=== PATIENT | female | born 1960 | race Caucasian/White ===

== ENCOUNTER 2016-12-02 05:49 | Outpatient (CLI) | payer OTHER | END 2016-12-02 05:50 | disposition critical access hospital (66) | DX: R11.2 Nausea with vomiting, unspecified (principal); R10.32 Left lower quadrant pain; R23.1 Pallor; R61 Generalized hyperhidrosis | CPT/HCPCS: A0425; A0427 ==

== ENCOUNTER 2016-12-02 06:08 | Emergency (ER) | payer OTHER ==
[2016-12-02] MEDS ORDERED: SODIUM CHLORIDE 0.9% 1,000 ML IV ONE (07:11)
[2016-12-02] MEDS ORDERED: KETOROLAC 60 MG/2 ML VIAL IVP STA (07:11)
[2016-12-02] MEDS ORDERED: ACETAMINOPHEN 1,000 MG/100 ML 100 ML IV STA (07:11)
[2016-12-02] MEDS ORDERED: ONDANSETRON 4 MG/2 ML VIAL IVP STA ×2 (07:11→09:19)
[2016-12-02] MEDS ORDERED: KETOROLAC 30 MG/ML VIAL ONE (07:21)
[2016-12-02] MEDS ORDERED: ACETAMINOPHEN 1,000 MG/100 ML 100 ML IV ONE (07:21)
[2016-12-02] MEDS ORDERED: ONDANSETRON 4 MG/2 ML VIAL ONE ×2 (07:21→09:27)
[2016-12-02] MEDS ORDERED: FAMOTIDINE 20 MG/50 ML 50 ML IV ONE ×2 (09:19→09:27)
[2016-12-02] MEDS ORDERED: HYDROmorphone 1 MG/ML SYRINGE IVP STA (09:19)
[2016-12-02] MEDS ORDERED: HYDROmorphone 1 MG/ML SYRINGE ONE (09:28)
== END 2016-12-02 11:02 | disposition home or self-care (01) ==
DX: R10.10 Upper abdominal pain, unspecified (principal); R11.2 Nausea with vomiting, unspecified; K80.20 Calculus of gallbladder without cholecystitis without obstruction; K21.9 Gastro-esophageal reflux disease without esophagitis; R73.9 Hyperglycemia, unspecified; R03.0 Elevated blood-pressure reading, without diagnosis of hypertension
CPT/HCPCS: 36415; 74176; 76705; 80053; 83690; 85025; 96361; 96365; 96367; 96375; 96376; 99284; J0131; J1170

== ENCOUNTER 2016-12-02 11:57 | Emergency (ER) | payer OTHER | END 2016-12-02 13:51 | disposition left against medical advice (07) | DX: Z53.21 Procedure and treatment not carried out due to patient leaving prior to being seen by health care provider (principal) ==

== ENCOUNTER 2017-12-07 13:22 | Day surgery (SDC) | payer OTHER ==
[2017-12-07] MEDS ORDERED: LACTATED RINGERS 1,000 ML IV ONE ×2 (14:07→16:15)
[2017-12-07] MEDS ORDERED: GLYCOPYRROLATE 1 MG/5 ML VIAL IVP ONE (16:00)
[2017-12-07] MEDS ORDERED: KETAMINE 500 MG/10 ML VIAL IVP ONE (16:00)
[2017-12-07] MEDS ORDERED: MIDAZOLAM 2 MG/2 ML VIAL IVP ONE (16:00)
[2017-12-07 16:50] VITALS: BP 154/92
--- NOTE | 2017-12-08 14:56 | PROCEDURE REPORT ---
DATE OF SERVICE: 12/07/2017 Physician: Artie Jacobsen MD PROCEDURE PERFORMED: Esophagogastroduodenoscopy with biopsy. ENDOSCOPIST: Artie Jacobsen MD PRIMARY CARE: Leatha Nelson MD INDICATION: Known cirrhosis, need for screening for varices. In addition, some abdominal discomfort, rule out H pylori. ANESTHESIA: MAC. PROCEDURE: After informed consent was obtained, the patient was placed in left lateral decubitus position. The video upper scope was placed to the oropharynx where the patient helped swallow to the esophagus, where the esophagus, stomach, duodenum were carefully examined. On withdrawal, retroflex through the GE junction was performed. The scope was removed and patient tolerated the procedure well. BLOOD LOSS: None. COMPLICATIONS: None. FINDINGS 1. Normal esophagus without any evidence of varices. 2. No gastropathy or portal hypertension. 3. Two antral erosions on raised inflammatory lesions. Biopsies taken to rule out Helicobacter. 4. Normal duodenal bulb and sweep. Patient will continue current medications and follow up with Dr. Hoffman; will be in touch regarding biopsies. cc: MD Dr. Yasmin Landrum TD: 12/07/2017 20:30
== END 2017-12-07 13:23 | disposition home or self-care (01) ==
LOC: SDS 13:22
PROVIDERS: ATTEND Internal Medicine Gastroenterology
PROC: 0DB78ZX Excision of Stomach, Pylorus, Via Natural or Artificial Opening Endoscopic, Diagnostic (ICD-10-PCS; principal; 2017-12-07 15:00)
DX: K25.9 Gastric ulcer, unspecified as acute or chronic, without hemorrhage or perforation (principal); K74.60 Unspecified cirrhosis of liver; R10.9 Unspecified abdominal pain; Z86.19 Personal history of other infectious and parasitic diseases
CPT/HCPCS: 43239; J7120

== ENCOUNTER 2020-11-18 11:24 | Outpatient (CLI) | payer OTHER | END 2020-11-18 23:59 | disposition critical access hospital (66) | LOC: EMS 11:24 | PROVIDERS: ATTEND Emergency Medicine | DX: R10.9 Unspecified abdominal pain (principal); R11.2 Nausea with vomiting, unspecified; M54.6 Pain in thoracic spine | CPT/HCPCS: A0425; A0427 ==

== ENCOUNTER 2020-11-18 11:45 | Observation (INO) | payer OTHER ==
--- NOTE | 2020-11-18 11:51 | ED Physician Documentation ---
PD HPI NVD - Stated complaint Stated Complaint: N/V - History obtained from History obtained from: Patient - History of Present Illness Timing - onset: Last night (overnight about 4 am.) Timing - details: Abrupt onset (nausea with repetitive vomiting, has intermittent cramping mid to upper abd pains. Some soft stool diarrhea couple of times.), Still present Associated symptoms: Abdominal pain (intermittent cramping), Loss of appetite. No: Fever, Chest pain, Hematemesis, Hematochezia, Dysuria Contributing factors: No: Sick contact, Bad food, Recent antibiotics Similar symptoms before: Has not had sx before Recently seen: Not recently seen Review of Systems Constitutional: denies: Fever, Chills Nose: denies: Rhinorrhea / runny nose, Congestion Throat: denies: Sore throat Respiratory: denies: Cough GI: reports: Abdominal Pain (cramping mid to upper.), Nausea, Vomiting, Diarrhea. denies: Abdominal Swelling, Constipation : denies: Dysuria, Discharge Musculoskeletal: denies: Neck pain, Back pain Neurologic: reports: Generalized weakness. denies: Focal weakness, Numbness, Near syncope, Altered mental status, Headache PD PAST MEDICAL HISTORY - Past Medical History Cardiovascular: None Respiratory: None Endocrine/Autoimmune: None GI: GERD, Hepatitis, Other (gallstones from prior studies. 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: None : Kidney stones HEENT: None Psych: Bipolar disorder, Depression, Anxiety Musculoskeletal: None Derm: None - Past Surgical History Past Surgical History: Yes /MANAGING JEWELER: Hysterectomy, section - Present Medications Home Medications: Ambulatory Orders Medication Instructions Recorded Confirmed Estrogens, Conjugated Cream 30 gm VG ONCE 12/07/17 11/18/20 [Premarin Cream] - Allergies Allergies/Adverse Reactions: Allergies Allergy/AdvReac Type Severity Reaction Status Date / Time Sulfa (Sulfonamide Allergy Intermediate Rash Verified 11/18/20 11:50 Antibiotics) - Living Situation Living Arrangement: reports: At home - Social History Does the pt smoke?: No Smoking Status: Never smoker Does the pt drink ETOH?: Yes ETOH Use: Other (she states last alcohol use was a month ago. No recent use. ) Does the pt have substance abuse?: Yes - Immunizations Immunizations are current?: Yes - POLST Patient has POLST: No PD ED PE NORMAL - Vitals Vital signs reviewed: Yes - General General: Alert and oriented X 3, Well developed/nourished, Other (Emesis bag and appears uncomfortable.) - HEENT HEENT: Pharynx benign. No: Moist mucous membranes - Neck Neck: Supple, no meningeal sign, No adenopathy - Cardiac Cardiac: RRR (low heart rate at times with the nausea. ), No murmur - Respiratory Respiratory: Clear bilaterally - Abdomen Abdomen: Normal bowel sounds, Soft, Non distended, No organomegaly, Other (some tenderness without guarding mid to right upper abd without percussion nor rebound tenderness. ) - Female Female : Deferred - Rectal Rectal: Deferred - Back Back: No CVA TTP - Derm Derm: Normal color, Warm and dry - Extremities Extremities: No edema, No calf tenderness / cord - Neuro Neuro: Alert and oriented X 3, No motor deficit, Normal speech Eye Opening: Spontaneous Motor: Obeys Commands Verbal: Oriented GCS Score: 15 Results - Vitals Vitals: Vital Signs - 24 hr 11/18/20 11/18/20 11/18/20 11:50 11:54 13:03 Temperature 36.7 C 36.6 C Heart Rate 42 L 76 65 Respiratory 14 16 14 Rate Blood Pressure 143/80 H 157/82 H 152/75 H O2 Saturation 99 98 99 11/18/20 15:13 Temperature 36.4 C L Heart Rate 78 Respiratory 22 Rate Blood Pressure 159/93 H O2 Saturation 98 Oxygen O2 Source Room air - EKG (time done) 12:20 Rate: Rate (enter#) (61) Rhythm: NSR [place]: Normal Intervals: Normal [place] QRS: Poor R wave progression Ischemia: Normal ST segments. No: ST elevation c/w ischemia, ST depression - Labs Labs: Laboratory Tests 11/18/20 11/18/20 11/18/20 10:45 10:45 13:43 WBC 9.2 RBC 4.29 Hgb 13.9 Hct 41.4 MCV 96.5 MCH 32.4 H MCHC 33.6 RDW 12.7 Plt Count 164 MPV 8.7 Neut # (Auto) 8.4 H Lymph # (Auto) 0.4 L [place] # (Auto) 0.4 Eos # (Auto) 0.0 Baso # (Auto) 0.0 Absolute Nucleated RBC 0.00 Nucleated RBC % 0.0 Sodium 143 Potassium 3.6 Chloride 105 Carbon Dioxide 21 Anion Gap 17.0 H BUN 14 Creatinine 0.6 Estimated GFR (MDRD) 102 Glucose 130 H Calcium 10.1 Magnesium 1.7 Total Bilirubin 0.9 AST 23 ALT 17 Alkaline Phosphatase 71 Troponin I High Sens 2.5 Total Protein 8.0 Albumin 5.1 Globulin 2.9 Albumin/Globulin Ratio 1.8 Lipase 20 L Urine Color Urine Clarity Urine pH Ur Specific [place] Urine Protein Urine Glucose (UA) Urine Ketones Urine Occult Blood Urine Nitrite Urine Bilirubin Urine Urobilinogen Ur Leukocyte Esterase Ur Microscopic Review Urine Culture Comments 11/18/20 15:12 WBC RBC Hgb Hct MCV MCH MCHC RDW Plt Count MPV Neut # (Auto) Lymph # (Auto) [place] # (Auto) Eos # (Auto) Baso # (Auto) Absolute Nucleated RBC Nucleated RBC % Sodium Potassium Chloride Carbon Dioxide Anion Gap BUN Creatinine Estimated GFR (MDRD) Glucose Calcium Magnesium Total Bilirubin AST ALT Alkaline Phosphatase Troponin I High Sens Total Protein Albumin Globulin Albumin/Globulin Ratio Lipase Urine Color YELLOW Urine Clarity CLEAR Urine pH 6.5 Ur Specific [place] 1.025 Urine Protein NEGATIVE Urine Glucose (UA) NEGATIVE Urine Ketones >=80 H Urine Occult Blood NEGATIVE Urine Nitrite NEGATIVE Urine Bilirubin NEGATIVE Urine Urobilinogen 0.2 (NORMAL) Ur Leukocyte Esterase NEGATIVE Ur Microscopic Review NOT INDICATED Urine Culture Comments NOT INDICATED - Rads (name of study) abd U/S Radiology: Prelim report reviewed (gallstones with some in neck. 6 mm stone in duct with some CBD dilatation. No wall thickening nor surrounding fluid.), See rad report, Other (discussed with tech. multiple GB stones without wall thickening. CBD with small stone and some ductal dilitation. ) PD MEDICAL DECISION MAKING - ED course Complexity details: reviewed results (Lipase and LFTs are okay.), re-evaluated patient (Still having intermittent cramping pains upper abd, more to the right. Can get U/S. ), considered differential (She is not having much tenderness in the upper abdomen and intermittent cramping pain so less likely pancreatitis. Consider gastritis or viral enteritis. Gallbladder would be possible as well. Will give IV fluids and medications. ), d/w patient ED course: And is still having intermittent abdominal pain despite several doses of pain medicines. At this point she does not seem comfortable consistently enough for oral medication and discharge. I talked with Dr. Canseco and reviewed the findings of the labs and ultrasound and he states he can admit the patient here since no signs of real biliary obstruction per se with normal labs. He will see the patient in the ER. Departure - Departure Disposition: 66 [facility] DC/Xfer Clinical Impression: RUQ abdominal pain, Intractable abdominal pain, Gallstones Bile duct stone Qualifiers: Cholecystitis presence: without cholecystitis Biliary obstruction: without biliary obstruction Qualified Code(s): K80.50 - Calculus of bile duct without cholangitis or cholecystitis without obstruction Condition: Stable Record reviewed to determine appropriate education?: Yes
[2020-11-18] MEDS ORDERED: SODIUM CHLORIDE 0.9% 1,000 ML IV STA ×2 (12:05→13:32)
[2020-11-18] MEDS ORDERED: ONDANSETRON 4 MG/2 ML VIAL IVP STA (12:05)
[2020-11-18] MEDS ORDERED: MORPHINE 10 MG/ML VIAL IVP STA (12:05)
[2020-11-18 12:39] LABS: BASOPHILS % (AUTO) 0.2 %; HGB - HEMOGLOBIN 13.9 g/dL (12.0-16.0); LYMPHOCYTES # (AUTO) 0.4 10^3/uL (1.5-3.5); MEAN CORPUSCULAR HEMOGLOBIN 32.4 pg (27.0-31.0); MEAN CORPUSCULAR HGB CONC 33.6 g/dL (32.0-36.0); MEAN CORPUSCULAR VOLUME 96.5 fL (81.0-99.0); MEAN PLATELET VOLUME 8.7 fL (7.9-10.8); MONOCYTES # (AUTO) 0.4 10^3/uL (0.0-1.0); MONOCYTES % (AUTO) 4.6 %; NEUTROPHILS # (AUTO) 8.4 10^3/uL (1.5-6.6); NEUTROPHILS % (AUTO) 90.9 %; PLT - PLATELET COUNT 164 10^3/uL (130-450); RED BLOOD COUNT 4.29 10^6/uL (4.20-5.40); RED CELL DISTRIBUTION WIDTH 12.7 % (12.0-15.0); WHITE BLOOD COUNT 9.2 x10^3/uL (4.8-10.8)
[2020-11-18 12:49] LABS: ALBUMIN 5.1 g/dL (3.2-5.5); ALBUMIN/GLOBULIN RATIO 1.8 (1.0-2.2); BILIRUBIN,TOTAL 0.9 mg/dL (0.2-1.0); CALCIUM 10.1 mg/dL (8.5-10.3); CREATININE 0.6 mg/dL (0.4-1.0); MAGNESIUM 1.7 mg/dL (1.7-2.8)
[2020-11-18] MEDS ORDERED: KETOROLAC 15 MG/ML VIAL IVP STA (12:50)
[2020-11-18] MEDS ORDERED: HYDROmorphone 1 MG/ML CARPUJECT IVP STA (12:50)
[2020-11-18] MEDS ORDERED: PROCHLORPERAZINE 10 MG/2 ML VIAL IVP STA (13:32)
--- NOTE | 2020-11-18 14:46 | Ultrasound Report ---
PROCEDURE: Abdomen Limited INDICATIONS: upper abd pain and vomiting TECHNIQUE: Real-time focused scanning was performed of the abdomen, with image documentation. COMPARISON: 12/02/2016 abdominal ultrasound FINDINGS: Nodular hepatic contour with mildly coarsened parenchymal echotexture and increased parenchymal echog enicity. Appropriate clinical setting these findings are consistent with cirrhosis. No hepatic mass i dentified. No intrahepatic biliary ductal dilatation. The common duct measures approximately 9 mm at the rick hepatis. There is at least one gallstone wit hin the common bile duct and multiple gallstones in the gallbladder neck. The gallbladder itself is n ormally distended without wall thickening or pericholecystic fluid. There are multiple shadowing gall stones as well as gallbladder sludge. Sonographic Hogan's sign is reported as positive. Normal right renal size and cortical thickness. There are a few nonobstructing punctate microcalcific ations in the collecting system which may represent small calculi findings of renal medullary calcino sis. Pancreas is within normal limits were partially visualized. IMPRESSION: Dilated common bile duct measuring 9 mm, containing at least one 6 mm gallstone. Numerous additional gallstones within the gallbladder including a few stones in the gallbladder neck. No imaging evidence of acute cholecystitis although the clearing hand does report a positive sonograph ic Hogan's sign. Findings suggestive of cirrhosis or other diffuse hepatocellular process. Reviewed by: J Carlos Rankin MD on 11/18/2020 2:44 PM PST Approved by: J Carlos Rankin MD on 11/18/2020 2:44 PM PST Station ID: [id number]
[2020-11-18 15:26] LABS: BILIRUBIN,URINE NEGATIVE (NEGATIVE); GLUCOSE, URINE (UA) NEGATIVE (NEGATIVE); KETONES,URINE (UA) >=80 mg/dL (NEGATIVE); LEUKOCYTE ESTERASE, URINE NEGATIVE (NEGATIVE); NITRITE,URINE NEGATIVE (NEGATIVE); OCCULT BLOOD,URINE NEGATIVE (NEGATIVE); PH,URINE 6.5 PH (5.0-7.5); PROTEIN,URINE NEGATIVE (NEGATIVE); UROBILINOGEN,URINE 0.2 (NORMAL) E.U./dL (NORMAL)
[2020-11-18 15:27] LABS: CLARITY,URINE CLEAR (CLEAR)
[2020-11-18] MEDS ORDERED: ONDANSETRON ODT 4 MG TABLET TL PRN (15:45)
[2020-11-18] MEDS ORDERED: PROCHLORPERAZINE 10 MG/2 ML VIAL IVP PRN (15:45)
[2020-11-18] MEDS ORDERED: HYDROmorphone PCA 20MG/100ML IV PRN (15:52)
--- NOTE | 2020-11-18 15:56 | HISTORY & PHYSICAL EXAMINATION ---
Chief Complaint - Chief Complaint Chief Complaint: deep epigastric pain and nausea and vomiting History of Present Illness - Admitted From Admitted From:: ed - History Obtained From Exam Limitations: none - History of Present Illness HPI Comment/Other: Abdominal pain and nausea and vomiting all day. She has had similar mild brief episodes in the past. Deep epigastric pain History - Past Medical History Cardiovascular: reports: None Respiratory: reports: None Neuro: reports: None Endocrine/Autoimmune: reports: None GI: reports: GERD, Hepatitis, Other (gallstones from prior studies. 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 : reports: Kidney stones HEENT: reports: None Psych: reports: Bipolar disorder, Depression, Anxiety Musculoskeletal: reports: None Derm: reports: None MRSA Hx?: No - Past Surgical History /VOCATIONAL REHABILITATION SPECIALIST: reports: Hysterectomy, section - Family & Social History Living arrangement: At home - POLST Patient has POLST: No Meds/Allgy - Home Medications Home Medications: Ambulatory Orders Medication Instructions Recorded Confirmed Estrogens, Conjugated Cream 30 gm VG ONCE 12/07/17 11/18/20 [Premarin Cream] - Allergies Allergies/Adverse Reactions: Allergies Allergy/AdvReac Type Severity Reaction Status Date / Time Sulfa (Sulfonamide Allergy Intermediate Rash Verified 11/18/20 11:50 Antibiotics) Review of Systems - Other Findings Other Findings: 10 pt ros as above otherwise unremarkable Exam - Vital Signs Reviewed Vital Signs: Yes Vital Signs: Vital Signs x48h Temp Pulse Resp BP Pulse Ox 11/18/20 15:13 36.4 C L 78 22 159/93 H 98 11/18/20 13:03 36.6 C 65 14 152/75 H 99 11/18/20 11:54 76 16 157/82 H 98 11/18/20 11:50 36.7 C 42 L 14 143/80 H 99 - Physical Exam General Appearance: positive: No acute distress, Alert Eyes Bilateral: positive: Normal inspection, PERRL, EOMI, No scleral icterus ENT: positive: No signs of dehydration Neck: positive: No JVD Respiratory: positive: No respiratory distress, Breath sounds nml Cardiovascular: positive: Regular rate & rhythm Abdomen: positive: No distention, Other (epigastric tenderness present) Neurologic/Psychiatric: positive: Oriented x3 Conclusion/Plan - Problem List (1) Gallstones Conclusion/Plan: She has had numerous small gallstones with little problem until today. Today she has had severe epigastric pain with nausea and vomiting all day. Not improving. Plan treatment cholecystitis with ivf, pain and nausea management and urgent surgery - Lab Results Fish Bones: 11/18/20 10:45 11/18/20 10:45 - Diagnostic Imaging Results Diagnostic Imaging Results: positive: Read independently (numerous small calcified gallstones for years)
[2020-11-18] MEDS: D5.45NS W/20 MEQ KCL 1,000 ML IV SCH (17:09)
[2020-11-18] MEDS: SODIUM CHLORIDE FLUSH 0.9% 10 ML SYRINGE IVP SCH (17:09)
[2020-11-18] MEDS: ONDANSETRON 4 MG/2 ML VIAL IVP PRN (17:56)
[2020-11-18] MEDS: AMPICILLIN/SULBACTAM 3 GM in SODIUM CHLORIDE 0.9% MINIBAG 100 ML IV SCH (18:31)
[2020-11-18] MEDS ORDERED: MORPHINE PCA 50 MG IV PRN (18:38)
[2020-11-18 19:34] LABS: C. PNEUMONIAE- RESP PCR PANEL NOT DETECTED
[2020-11-18] MEDS: FAMOTIDINE 20 MG TABLET PO SCH (21:37)
[2020-11-18] MEDS: ZOLPIDEM 5 MG TABLET PO PRN (21:37)
[2020-11-19] MEDS: AMPICILLIN/SULBACTAM 3 GM in SODIUM CHLORIDE 0.9% MINIBAG 100 ML IV SCH ×4 (00:49→18:10)
[2020-11-19] MEDS: SODIUM CHLORIDE FLUSH 0.9% 10 ML SYRINGE IVP SCH ×3 (00:58→17:27)
[2020-11-19] MEDS: D5.45NS W/20 MEQ KCL 1,000 ML IV SCH ×3 (01:00→18:55)
[2020-11-19] MEDS: SODIUM CHLORIDE FLUSH 0.9% 10 ML SYRINGE IVP PRN (05:35)
[2020-11-19] MEDS: FAMOTIDINE 20 MG TABLET PO SCH ×2 (09:07→20:12)
[2020-11-19] MEDS ORDERED: ACETAMINOPHEN 325 MG TABLET PO PRN (09:38)
[2020-11-19] MEDS: HYDROcod/ACETAM 5/325 MG TABLET PO PRN ×3 (09:54→22:06)
--- NOTE | 2020-11-19 12:34 | PROVIDER PROGRESS NOTE ---
Subjective - Prog Note Date Prog Note Date: 11/19/20 - Subjective Pt reports feeling: Improved (pain is no longer constant; however comes in waves and can be significant. nausea improved) Objective - Vital Signs/Intake & Output Vital Signs: Vital Signs x48h Temp Pulse Resp BP Pulse Ox 11/19/20 08:00 37.2 C 68 16 133/62 H 98 11/19/20 06:01 16 11/19/20 05:59 37.0 C 72 16 147/74 H 96 11/19/20 05:00 55 L 16 137/77 H Intake & Output: Intake & Output 11/16/20 11/17/20 11/18/20 11/19/20 23:59 23:59 23:59 23:59 Intake Total 1577.5 2181.25 Output Total 250 Balance 1327.5 2181.25 - Objective General Appearance: positive: No acute distress, Alert, Mild distress Eyes Bilateral: positive: PERRL, No scleral icterus ENT: positive: No signs of dehydration Respiratory: positive: No respiratory distress Abdomen: positive: No distention, Other (epigastric tenderness present) Neurologic/Psychiatric: positive: Oriented x3 - Lab Results Fish Bones: 11/18/20 10:45 11/18/20 10:45 Other Labs: Lab Results x24hrs 11/18/20 11/18/20 11/18/20 Range/Units 16:51 15:12 13:43 WBC (4.8-10.8) x10^3/uL RBC (4.20-5.40) 10^6/uL Hgb (12.0-16.0) g/dL Hct (37.0-47.0) % MCV (81.0-99.0) fL MCH (27.0-31.0) pg MCHC (32.0-36.0) g/dL RDW (12.0-15.0) % Plt Count (130-450) 10^3/uL MPV (7.9-10.8) fL Neut # (Auto) (1.5-6.6) 10^3/uL Lymph # (Auto) (1.5-3.5) 10^3/uL [place] # (Auto) (0.0-1.0) 10^3/uL Eos # (Auto) (0.0-0.7) 10^3/uL Baso # (Auto) (0.0-0.1) 10^3/uL Absolute Nucleated RBC x10^3/uL Nucleated RBC % /100WBC Sodium (135-145) mmol/L Potassium (3.5-5.0) mmol/L Chloride (101-111) mmol/L Carbon Dioxide (21-32) mmol/L Anion Gap (6-13) BUN (6-20) mg/dL Creatinine (0.4-1.0) mg/dL Estimated GFR (MDRD) (>89) Glucose (70-100) mg/dL Calcium (8.5-10.3) mg/dL Magnesium (1.7-2.8) mg/dL Total Bilirubin (0.2-1.0) mg/dL AST (10-42) IU/L ALT (10-60) IU/L Alkaline Phosphatase (42-121) IU/L Troponin I High Sens 2.5 (2.3-14.8) ng/L Total Protein (6.7-8.2) g/dL Albumin (3.2-5.5) g/dL Globulin (2.1-4.2) g/dL Albumin/Globulin Ratio (1.0-2.2) Lipase (22-51) U/L Urine Color YELLOW Urine Clarity CLEAR (CLEAR) Urine pH 6.5 (5.0-7.5) PH Ur Specific [place] 1.025 (1.002-1.030) Urine Protein NEGATIVE (NEGATIVE) mg/dL Urine Glucose (UA) NEGATIVE (NEGATIVE) mg/dL Urine Ketones >=80 H (NEGATIVE) mg/dL Urine Occult Blood NEGATIVE (NEGATIVE) Urine Nitrite NEGATIVE (NEGATIVE) Urine Bilirubin NEGATIVE (NEGATIVE) Urine Urobilinogen 0.2 (NORMAL) (NORMAL) E.U./dL Ur Leukocyte Esterase NEGATIVE (NEGATIVE) Ur Microscopic Review NOT INDICATED Urine Culture Comments NOT INDICATED Nasal Adenovirus (PCR) NOT DETECTED Nasal B. parapertussis DNA (PCR) NOT DETECTED Nasal Coronavir 229E PCR NOT DETECTED Nasal Coronavir HKU1 PCR NOT DETECTED Nasal Coronavir NL63 PCR NOT DETECTED Nasal Coronavir OC43 PCR NOT DETECTED Nasal Enterovir/Rhinovir PCR NOT DETECTED Nasal Influenza B PCR NOT DETECTED Nasal Influenza A PCR NOT DETECTED Nasal Parainfluen 1 PCR NOT DETECTED Nasal Parainfluen 2 PCR NOT DETECTED Nasal Parainfluen 3 PCR NOT DETECTED Nasal Parainfluen 4 PCR NOT DETECTED Nasal RSV (PCR) NOT DETECTED Nasal B.pertussis DNA PCR NOT DETECTED Nasal C.pneumoniae (PCR) NOT DETECTED Thaddeus Human Metapneumo PCR NOT DETECTED Nasal M.pneumoniae (PCR) NOT DETECTED Nasal SARS-CoV-2 (PCR) NOT DETECTED 11/18/20 11/18/20 Range/Units 10:45 10:45 WBC 9.2 (4.8-10.8) x10^3/uL RBC 4.29 (4.20-5.40) 10^6/uL Hgb 13.9 (12.0-16.0) g/dL Hct 41.4 (37.0-47.0) % MCV 96.5 (81.0-99.0) fL MCH 32.4 H (27.0-31.0) pg MCHC 33.6 (32.0-36.0) g/dL RDW 12.7 (12.0-15.0) % Plt Count 164 (130-450) 10^3/uL MPV 8.7 (7.9-10.8) fL Neut # (Auto) 8.4 H (1.5-6.6) 10^3/uL Lymph # (Auto) 0.4 L (1.5-3.5) 10^3/uL [place] # (Auto) 0.4 (0.0-1.0) 10^3/uL Eos # (Auto) 0.0 (0.0-0.7) 10^3/uL Baso # (Auto) 0.0 (0.0-0.1) 10^3/uL Absolute Nucleated RBC 0.00 x10^3/uL Nucleated RBC % 0.0 /100WBC Sodium 143 (135-145) mmol/L Potassium 3.6 (3.5-5.0) mmol/L Chloride 105 (101-111) mmol/L Carbon Dioxide 21 (21-32) mmol/L Anion Gap 17.0 H (6-13) BUN 14 (6-20) mg/dL Creatinine 0.6 (0.4-1.0) mg/dL Estimated GFR (MDRD) 102 (>89) Glucose 130 H (70-100) mg/dL Calcium 10.1 (8.5-10.3) mg/dL Magnesium 1.7 (1.7-2.8) mg/dL Total Bilirubin 0.9 (0.2-1.0) mg/dL AST 23 (10-42) IU/L ALT 17 (10-60) IU/L Alkaline Phosphatase 71 (42-121) IU/L Troponin I High Sens (2.3-14.8) ng/L Total Protein 8.0 (6.7-8.2) g/dL Albumin 5.1 (3.2-5.5) g/dL Globulin 2.9 (2.1-4.2) g/dL Albumin/Globulin Ratio 1.8 (1.0-2.2) Lipase 20 L (22-51) U/L Urine Color Urine Clarity (CLEAR) Urine pH (5.0-7.5) PH Ur Specific [place] (1.002-1.030) Urine Protein (NEGATIVE) mg/dL Urine Glucose (UA) (NEGATIVE) mg/dL Urine Ketones (NEGATIVE) mg/dL Urine Occult Blood (NEGATIVE) Urine Nitrite (NEGATIVE) Urine Bilirubin (NEGATIVE) Urine Urobilinogen (NORMAL) E.U./dL Ur Leukocyte Esterase (NEGATIVE) Ur Microscopic Review Urine Culture Comments Nasal Adenovirus (PCR) Nasal B. parapertussis DNA (PCR) Nasal Coronavir 229E PCR Nasal Coronavir HKU1 PCR Nasal Coronavir NL63 PCR Nasal Coronavir OC43 PCR Nasal Enterovir/Rhinovir PCR Nasal Influenza B PCR Nasal Influenza A PCR Nasal Parainfluen 1 PCR Nasal Parainfluen 2 PCR Nasal Parainfluen 3 PCR Nasal Parainfluen 4 PCR Nasal RSV (PCR) Nasal B.pertussis DNA PCR Nasal C.pneumoniae (PCR) Thaddeus Human Metapneumo PCR Nasal M.pneumoniae (PCR) Nasal SARS-CoV-2 (PCR) Assessment/Plan - Problem List (2) Cholecystitis Impression: She continues with significant pain and times and chills. continue present care and urgent surgery when operating room time available.
[2020-11-19] MEDS: MORPHINE 2 MG/ML CARPUJECT IVP PRN ×2 (13:24→17:49)
[2020-11-19] MEDS: ONDANSETRON 4 MG/2 ML VIAL IVP PRN (13:59)
--- NOTE | 2020-11-19 16:51 | PHARMACY PROGRESS NOTE ---
- Best Possible Medication History Admit Date and Time: 11/18/20 1545 Processed by: Pharmacy Medication History completed: Yes Patient Interview: Completed Secondary Source(s): Physician records, Pharmacy records, Insurance records (PATIENT INTERVIEWED BY [employer]. PATIENT ABLE TO CONFIRM HOME MEDICATIONS ) As the person ultimately responsible for medication therapy, providers are able to order a medication from an existing home medication list in [facility] via the "Reconcile Routine" prior to Confirmation of that medication by system support administrator. Such practice is discouraged except when the physician, in their clinical judgment, deems that a medical need exists for a medication without regard to previous use.
[2020-11-19] MEDS: ZOLPIDEM 5 MG TABLET PO PRN (22:06)
[2020-11-20] MEDS: SODIUM CHLORIDE FLUSH 0.9% 10 ML SYRINGE IVP SCH ×3 (00:24→18:25)
[2020-11-20] MEDS: AMPICILLIN/SULBACTAM 3 GM in SODIUM CHLORIDE 0.9% MINIBAG 100 ML IV SCH ×4 (00:24→17:45)
[2020-11-20] MEDS: HYDROcod/ACETAM 5/325 MG TABLET PO PRN ×2 (05:23→18:26)
[2020-11-20] MEDS: SODIUM CHLORIDE FLUSH 0.9% 10 ML SYRINGE IVP PRN (05:29)
[2020-11-20] MEDS: D5.45NS W/20 MEQ KCL 1,000 ML IV SCH (08:58)
[2020-11-20] MEDS: MORPHINE 2 MG/ML CARPUJECT IVP PRN ×2 (09:06→17:44)
[2020-11-20] MEDS: ONDANSETRON 4 MG/2 ML VIAL IVP PRN ×2 (09:07→22:13)
[2020-11-20] MEDS: FAMOTIDINE 20 MG TABLET PO SCH ×2 (09:07→22:53)
--- NOTE | 2020-11-20 13:27 | PROVIDER PROGRESS NOTE ---
Subjective - Prog Note Date Prog Note Date: 11/20/20 - Subjective Pt reports feeling: Improved (however still uncomfortable) Objective - Vital Signs/Intake & Output Reviewed Vital Signs: Yes Vital Signs: Vital Signs x48h Temp Pulse Resp BP Pulse Ox 11/20/20 11:48 37.4 C 98 162/75 H 11/20/20 08:18 37.2 C 56 L 16 152/95 H 98 Intake & Output: Intake & Output 11/17/20 11/18/20 11/19/20 11/20/20 23:59 23:59 23:59 23:59 Intake Total 1577.5 4111.25 1300.0 Output Total 250 Balance 1327.5 4111.25 1300.0 - Objective General Appearance: positive: No acute distress, Alert Eyes Bilateral: positive: Normal inspection ENT: positive: No signs of dehydration Respiratory: positive: No respiratory distress Abdomen: positive: No distention Neurologic/Psychiatric: positive: Oriented x3 - Lab Results Fish Bones: 11/18/20 10:45 11/18/20 10:45 Assessment/Plan - Problem List (2) Cholecystitis Impression: plan prasanth cristina. keyanna held and consent obtained
[2020-11-20] MEDS ORDERED: BUPIVACAINE 0.25% PF 30 ML VIAL SUBQ ONE (13:34)
[2020-11-20] MEDS ORDERED: ONDANSETRON 4 MG/2 ML VIAL IVP PRN ×2 (13:47→15:52)
[2020-11-20] MEDS ORDERED: NALOXONE 0.4 MG/ML VIAL IVP PRN (13:47)
[2020-11-20] MEDS ORDERED: HYDROmorphone 0.5 MG/0.5 ML SYRINGE IVP PRN (13:47)
[2020-11-20] MEDS ORDERED: ATROPINE ABBOJECT 1 MG/10 ML SYRINGE IVP PRN (13:47)
[2020-11-20] MEDS ORDERED: METOCLOPRAMIDE 10 MG/2 ML VIAL IVP PRN (13:47)
[2020-11-20] MEDS ORDERED: MORPHINE 2 MG/ML CARPUJECT IVP PRN (13:47)
[2020-11-20] MEDS ORDERED: ePHEDrine 50 MG/ML VIAL IVP PRN (13:47)
--- NOTE | 2020-11-20 13:47 | ANESTHESIA ---
Pre-Anesthesia VS, & Labs - Diagnosis cholecytitis - Procedure Laparoscopic cholecystectomy Vital Signs: Temp Pulse Resp BP Pulse Ox 37.4 C 98 16 162/75 H 98 11/20/20 11:48 11/20/20 11:48 11/20/20 08:18 11/20/20 11:48 11/20/20 08:18 Height: 5 ft 1 in Weight (kg): 58.5 kg Body Mass Index: 24.3 BMI Classification: Healthy weight - NPO >8 hours - Is Patient ?: No - Lab Results Current Lab Results: Laboratory Tests 11/18/20 13:43: Troponin I High Sens 2.5 11/18/20 10:45: Sodium 143, Potassium 3.6, Chloride 105, Carbon Dioxide 21, Anion Gap 17.0 H, BUN 14, Creatinine 0.6, Estimated GFR (MDRD) 102, Glucose 130 H, Calcium 10.1, Magnesium 1.7, Total Bilirubin 0.9, AST 23, ALT 17, Alkaline Phosphatase 71, Total Protein 8.0, Albumin 5.1, Globulin 2.9, Albumin/Globulin Ratio 1.8, Lipase 20 L 11/18/20 10:45: WBC 9.2, RBC 4.29, Hgb 13.9, Hct 41.4, MCV 96.5, MCH 32.4 H, MCHC 33.6, RDW 12.7, Plt Count 164, MPV 8.7, Neut # (Auto) 8.4 H, Lymph # (Auto) 0.4 L, [place] # (Auto) 0.4, Eos # (Auto) 0.0, Baso # (Auto) 0.0, Absolute Nucleated RBC 0.00, Nucleated RBC % 0.0 Lab results reviewed: Yes Fish Bones: 11/18/20 10:45 11/18/20 10:45 Home Medications and Allergies Active Medications Acetaminophen (Acetaminophen 325 Mg Tablet) 650 mg PO Q4HR PRN PRN Reason: Pain or Fever > 38C (100.4F) Hydrocodone Bitart/Acetaminophen (Hydrocod/Acetam 5/325 Mg Tablet) 1 tab PO Q4HR PRN PRN Reason: Pain 5 to 7 Last Admin: 11/20/20 05:23 Dose: 1 tab Documented by: Famotidine (Famotidine 20 Mg Tablet) 20 mg PO BID JERONIMO Last Admin: 11/20/20 09:07 Dose: 20 mg Documented by: Potassium Chloride/Dextrose/Sod Cl (D5.45ns W/20 Meq Kcl) 1,000 mls @ 125 mls/hr IV .Q8H [facility] Last Admin: 11/20/20 08:58 Dose: 125 mls/hr Documented by: Ampicillin Sodium/Sulbactam (Sodium 3 gm/ Sodium Chloride) 100 mls @ 200 mls/hr IV Q6HR [facility] Last Infusion: 11/20/20 12:10 Dose: Infused Documented by: Morphine Sulfate (Morphine 2 Mg/Ml Carpuject) 1 - 2 mg IVP Q4HR PRN PRN Reason: PAIN Last Admin: 11/20/20 09:06 Dose: 2 mg Documented by: Ondansetron HCl (Ondansetron Odt 4 Mg Tablet) 4 mg TL Q6HR PRN PRN Reason: Nausea / Vomiting Last Admin: 11/19/20 06:05 Dose: 4 mg Documented by: Ondansetron HCl (Ondansetron 4 Mg/2 Ml Vial) 4 mg IVP Q6HR PRN PRN Reason: Nausea / Vomiting Last Admin: 11/20/20 09:07 Dose: 4 mg Documented by: Prochlorperazine Edisylate (Prochlorperazine 10 Mg/2 Ml Vial) 10 mg IVP Q6HR PRN PRN Reason: Nausea / Vomiting Last Admin: 11/18/20 21:44 Dose: 10 mg Documented by: Sodium Chloride (Sodium Chloride Flush 0.9% 10 Ml Syringe) 10 ml IVP PRN PRN PRN Reason: NEEDED PER PROVIDER ORDERS Last Admin: 11/20/20 05:29 Dose: 10 ml Documented by: Sodium Chloride (Sodium Chloride Flush 0.9% 10 Ml Syringe) 10 ml IVP 0100,0900,1700 [facility] Last Admin: 11/20/20 09:07 Dose: 10 ml Documented by: Zolpidem Tartrate (Zolpidem 5 Mg Tablet) 5 mg PO QPM PRN PRN Reason: Insomnia Last Admin: 11/19/20 22:06 Dose: 5 mg Documented by: Estrogens, Conjugated Cream [Premarin Cream] 30 gm VG PRN PRN 12/07/17 Allergies/Adverse Reactions: Allergies Allergy/AdvReac Type Severity Reaction Status Date / Time Sulfa (Sulfonamide Allergy Intermediate Rash Verified 11/19/20 14:01 Antibiotics) Anes History & Medical History - Anesthetic History Anesthesia Complications: reports: No previous complications Family history of Anesthesia Complications: Denies Family history of Malignant Hyperthermia: Denies - Medical History Cardiovascular: reports: None Pulmonary: reports: None Gastrointestinal: reports: GERD, Hepatitis, Other Urinary: reports: Kidney stones Neuro: reports: None Musculoskeletal: reports: None Endocrine/Autoimmune: reports: None Blood Disorders: reports: None Skin: reports: None Smoking Status: Current every day smoker Psychosocial: reports: Cannabis History of Cancer?: No - Surgical History Gynecologic: Hysterectomy, section Exam General: Alert, Oriented x3, Cooperative Dental: WNL Mouth Openin Fingerbreadth Neck Mobility: Normal Mallampati classification: I Thyromental Distance: 4-6 cm Respiratory: Lungs clear, Normal breath sounds, No respiratory distress Cardiovascular: Regular rate Neurological: Normal speech Mental/Cognitive Status: Alert/Oriented X3, Normal for patient Cognitive Status: Within normal limits Plan Anesthesia Type: General Consent for Procedure(s) Verified and Reviewed: Yes Code Status: Attempt Resuscitation ASA classification: 2-Mild systemic disease Is this case an emergency?: No
[2020-11-20] MEDS ORDERED: LACTATED RINGERS 1,000 ML IV SCH (14:00)
[2020-11-20] MEDS ORDERED: LACTATED RINGERS 1,000 ML IV ONE ×2 (15:47→16:18)
[2020-11-20] MEDS: fentaNYL 100 MCG/2 ML VIAL IVP PRN ×2 (15:51→16:05)
[2020-11-20] MEDS ORDERED: HYDROcod/ACETAM 5/325 MG TABLET PO PRN (15:52)
--- NOTE | 2020-11-20 15:52 | OPERATIVE REPORT ---
Operative Report - General Admit Date: 11/18/20 Procedure Date: 11/20/20 Planned Procedure: lap cristina Pre-Op Diagnosis: cholecystitis Procedure Performed: lap cristina Post Op Diagnosis: cholecystitis - Procedure Note Primary Surgeon: aric camara Anesthesia Technique: General ET tube, Local Pathology: gb Estimated Blood Loss (mL): 5 Drain/Tube Type: Other (none) Findings: as above. mild cirrhosis Complications: none
[2020-11-20] MEDS: HYDROmorphone 0.5 MG/0.5 ML SYRINGE IVP PRN ×4 (16:09→22:13)
--- NOTE | 2020-11-20 20:00 | OPERATIVE REPORT ---
DATE OF SERVICE: 11/20/2020 Physician: Gareth Canseco MD PREOPERATIVE DIAGNOSIS: Cholecystitis. POSTOPERATIVE DIAGNOSIS: Cholecystitis. PROCEDURE PERFORMED: Laparoscopic cholecystectomy. SURGEON: Gareth Canseco MD PARK RECREATION MANAGER: None. ANESTHESIA 1. General endotracheal anesthesia. 2. Local anesthesia with Marcaine. COMPLICATIONS: None. SPECIMENS: Gallbladder. ESTIMATED BLOOD LOSS: 5-10 mL DRAINS: None. FINDINGS: Acute cholecystitis with a distended gallbladder and edema. Mild cirrhosis. INDICATIONS FOR PROCEDURE: The patient is a fairly healthy 60-year-old with very significant epigast darnell right upper quadrant pain, as well as nausea and vomiting over the last 2-3 days. She has lincoln us small gallstones. She has no signs or symptoms of choledocholithiasis. She presents for cholecys tectomy. Risks discussed, alternatives discussed. All questions answered and consent obtained. DESCRIPTION OF PROCEDURE: The patient was properly identified and brought to the operating room and placed in a supine position. She voided prior to surgery. General endotracheal anesthesia was induc ed. She was prepped and draped in a sterile fashion. She had been on antibiotics. Local anesthetic was given to incision areas. An infraumbilical incision was made. Dissection proceeded down to the fascia. The fascia was incised and a Veress needle placement attempted. The Veress needle would no t pop through the peritoneum easily. The peritoneum therefore was sharply opened and blunt trocar pl aced directly under vision. CO2 was insufflated to a pressure of 15. There was no evidence of injur y from Veress needle or trocar placement. Under direct vision, two 5 mm trocars were placed in the r ight upper quadrant and an 11 mm trocar was placed in the epigastrium. She had a large gallbladder. It was retracted anterior. Lateral attachments were partially taken down further mobilizing the gal lbladder away from the common hepatic duct, which was easily evident without dissection. The infundi bulum and Tristin's pouch area was released from its peritoneal type attachments and retracted right lateral and caudad. A large bare cystic plate area or window was developed with minimal use of caut lavelle. The cystic duct and cystic artery were clearly well defined from both a right lateral and left lateral visual standpoint. The cystic duct and the cystic artery were clipped at the gallbladder and additionally 2-3 times proximally and sharply divided. The gallbladder was mobilized off from the b ed of the liver without spillage of bile or stone material. Hemostasis was assured. Clips were secu red. The scant amount of blood was aspirated. The trocars were removed under direct vision and CO2 evacuated. Fascia in the epigastrium as well as in the infraumbilical site was closed with running 0 Vicryl suture. Skin was closed with buried interrupted or running 4-0 Monocryl subcuticular suture. Dressings were applied. She tolerated the procedure very well. TD: 11/20/2020 19:46
[2020-11-21] MEDS: SODIUM CHLORIDE FLUSH 0.9% 10 ML SYRINGE IVP SCH (01:09)
[2020-11-21] MEDS: AMPICILLIN/SULBACTAM 3 GM in SODIUM CHLORIDE 0.9% MINIBAG 100 ML IV SCH ×2 (01:09→06:41)
[2020-11-21] MEDS: HYDROcod/ACETAM 5/325 MG TABLET PO PRN ×2 (01:22→06:39)
[2020-11-21] MEDS: D5.45NS W/20 MEQ KCL 1,000 ML IV SCH (02:38)
[2020-11-21] MEDS: SODIUM CHLORIDE FLUSH 0.9% 10 ML SYRINGE IVP PRN (06:41)
[2020-11-21 07:50] VITALS: BP 158/88
--- NOTE | 2020-11-21 07:53 | PROVIDER PROGRESS NOTE ---
Subjective - Prog Note Date Prog Note Date: 11/21/20 - Subjective Pt reports feeling: Improved (feeling much better today) Objective - Vital Signs/Intake & Output Reviewed Vital Signs: Yes Vital Signs: Vital Signs x48h Temp Pulse Resp BP Pulse Ox 11/21/20 00:00 37.1 C 51 L 18 148/80 H 99 Intake & Output: Intake & Output 11/18/20 11/19/20 11/20/20 11/21/20 23:59 23:59 23:59 23:59 Intake Total 1577.5 4111.25 3800.0 806.25 Output Total 250 Balance 1327.5 4111.25 3800.0 806.25 - Objective General Appearance: positive: No acute distress, Alert Respiratory: positive: No respiratory distress Abdomen: positive: Non-tender, No distention Neurologic/Psychiatric: positive: Oriented x3 - Lab Results Fish Bones: 11/18/20 10:45 11/18/20 10:45 Assessment/Plan - Problem List (2) Cholecystitis Impression: Doing well. D/C home
[2020-11-21] MEDS: FAMOTIDINE 20 MG TABLET PO SCH (09:02)
--- NOTE | 2020-11-21 11:44 | DISCHARGE SUMMARY ---
"Discharge Summary Admit Date: 11/18/20 Discharge Date: 11/21/20 Discharging Provider: aric camara Code Status: Attempt Resuscitation Condition at Discharge: Good - DIAGNOSES Admission Diagnoses: cholecystitis Discharge Diagnoses with Status of Each Condition: good condition after cholecystectomy - HPI History of Present Illness: acute abdominal pain and cholecystitis - CONSULTS | PROCEDURES Procedures: lap cholecystectomy 11/20/2020 - HOSPITAL COURSE Hospital Course: as above - ALLERGIES Allergies/Adverse Reactions: Allergies Allergy/AdvReac Type Severity Reaction Status Date / Time Sulfa (Sulfonamide Allergy Intermediate Rash Verified 11/19/20 14:01 Antibiotics) - MEDICATIONS Home Medications: Ambulatory Orders Medication Instructions Recorded Confirmed Estrogens, Conjugated Cream 30 gm VG PRN PRN 12/07/17 11/19/20 [Premarin Cream] HYDROcod/ACETAM 5/325 [[place] 5/325] 1 each PO Q6H PRN #30 tab 11/20/20 Ondansetron Odt [Zofran Odt] 4 mg PO Q6H PRN #15 tab 11/20/20 - PHYSICAL EXAM AT DISCHARGE General Appearance: positive: Alert Eyes Bilateral: positive: Normal inspection, PERRL, No scleral icterus Respiratory: positive: No respiratory distress Abdomen: positive: No distention Neurologic/Psychiatric: positive: Oriented x3 - LABS Result Diagrams: 11/18/20 10:45 11/18/20 10:45 - FOLLOW UP Follow Up: aric camara md [phone]"
== END 2020-11-21 11:44 | disposition home or self-care (01) ==
LOC: EDBD → EDUNIT# → ED 11:45 → MS2 15:45 → OBS 11-19 20:27
PROVIDERS: ADMIT Surgery; ATTEND Surgery
PROC: 0FT44ZZ Resection of Gallbladder, Percutaneous Endoscopic Approach (ICD-10-PCS; principal; 2020-11-20 13:30)
DX: K80.00 Calculus of gallbladder with acute cholecystitis without obstruction (principal); K74.60 Unspecified cirrhosis of liver; K21.9 Gastro-esophageal reflux disease without esophagitis; F31.9 Bipolar disorder, unspecified; Z20.822 Contact with and (suspected) exposure to COVID-19; F17.200 Nicotine dependence, unspecified, uncomplicated; Z72.89 Other problems related to lifestyle; Z86.19 Personal history of other infectious and parasitic diseases; Z87.442 Personal history of urinary calculi
CPT/HCPCS: 0202U; 36415; 47562; 76705; 80053; 81003; 83690; 83735; 84484; 85025; 93005; 96365; 96366; 96367; 96368; 96375; 96376; 99284; 99285; A9270; G0378; J1170; J7120; Q0162; 81001; 87086

== ENCOUNTER 2021-02-01 08:34 | Emergency (ER) | payer OTHER ==
--- OUTSIDE RECORDS SUMMARY | 2021-02-01 08:37 | EXTERNAL MEDICAL SUMMARY RPT | Continuity of Care Document ---
:1960 Demographics Phone Unavailable Preferred Language Unknown Marital Status Unknown Jewish Affiliation Unknown Race Unknown Ethnic Group Unknown Author Organization [facility] Address [address] [id number] Phone Social History date description facility [phone]
--- OUTSIDE RECORDS SUMMARY | 2021-02-01 08:57 | EXTERNAL MEDICAL SUMMARY RPT | Continuity of Care Document ---
:1960 Demographics Phone Unavailable Preferred Language Unknown Marital Status Unknown Hindu Affiliation Unknown Race Unknown Ethnic Group Unknown Author Organization [facility] Address [address] [phone] Phone Social History date description facility [phone]
[2021-02-01 09:14] LABS: BILIRUBIN,URINE NEGATIVE (NEGATIVE); GLUCOSE, URINE (UA) NEGATIVE (NEGATIVE); KETONES,URINE (UA) 40 mg/dL (NEGATIVE); LEUKOCYTE ESTERASE, URINE NEGATIVE (NEGATIVE); NITRITE,URINE NEGATIVE (NEGATIVE); OCCULT BLOOD,URINE TRACE-INTA (NEGATIVE); PH,URINE 5.5 PH (5.0-7.5); PROTEIN,URINE 30 mg/dL (NEGATIVE); UROBILINOGEN,URINE 0.2 (NORMAL) E.U./dL (NORMAL)
[2021-02-01 09:15] LABS: CLARITY,URINE CLEAR (CLEAR)
[2021-02-01] MEDS ORDERED: ONDANSETRON 4 MG/2 ML VIAL IVP STA (09:28)
[2021-02-01] MEDS ORDERED: FOLIC ACID INJ 1 MG, THIAMINE INJ 100 MG, MAGNESIUM SULFATE 2 GM, MULTIVITAMIN 10 ML in... IV STA ×5 (09:28)
[2021-02-01 09:30] LABS: BACTERIA,URINE None Seen /HPF (None Seen); RBC,URINE 0-5 /HPF (0-5); SQUAMOUS EPITHELIAL CELL,UR MOD Squamous (<= Few); WBC,URINE 0-3 /HPF (0-5)
--- NOTE | 2021-02-01 09:30 | ED Physician Documentation ---
PD HPI NVD - Stated complaint Stated Complaint: VOMITING - Chief complaint Chief Complaint: Abd Pain - History obtained from History obtained from: Patient - History of Present Illness Timing - onset: Last night Timing - duration: Hours Timing - details: Gradual onset, Still present Associated symptoms: Abdominal pain, Loss of appetite Contributing factors: Alcohol use Improved by: Laying still, Vomiting Worsened by: Eating Similar symptoms before: Diagnosis (gastroenteritis) Recently seen: Not recently seen - Additonal information Additional information: Previously well 61-year-old female has been sober for some time and she had her birthday and her had a surprise republican for her she drank a bottle of wine. She has been vomiting and has some abdominal pain and she has not been able to keep anything down feels very dehydrated.Has diarrhea as well. Review of Systems Constitutional: reports: Fatigue. denies: Fever Eyes: denies: Decreased vision Ears: denies: Ear pain Nose: denies: Rhinorrhea / runny nose, Congestion Throat: denies: Sore throat Cardiac: denies: Chest pain / pressure, Palpitations Respiratory: denies: Dyspnea, Wheezing GI: reports: Abdominal Pain, Nausea, Vomiting, Diarrhea : denies: Dysuria, Frequency Skin: denies: Rash Musculoskeletal: denies: Neck pain, Back pain, Extremity pain Neurologic: denies: Generalized weakness, Focal weakness, Numbness PD PAST MEDICAL HISTORY - Past Medical History Cardiovascular: None Respiratory: None Neuro: None Endocrine/Autoimmune: None GI: GERD, Hepatitis, Other 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 : Kidney stones HEENT: None Psych: Bipolar disorder, Depression, Anxiety Musculoskeletal: None Derm: None - Past Surgical History Past Surgical History: Yes General: 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 /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 FIELD TECHNICIAN: Hysterectomy, section - Present Medications Home Medications: Ambulatory Orders Medication Instructions Recorded Confirmed Estrogens, Conjugated Cream 30 gm VG PRN PRN 12/07/17 02/01/21 [Premarin Cream] Mirtazapine [Remeron] 1 tab PO DAILY 02/01/21 02/01/21 Ondansetron Odt [Zofran] 4 mg TL Q6H PRN #10 tablet 02/01/21 - Allergies Allergies/Adverse Reactions: Allergies Allergy/AdvReac Type Severity Reaction Status Date / Time Sulfa (Sulfonamide Allergy Intermediate Rash Verified 02/01/21 08:43 Antibiotics) - Social History Does the pt smoke?: No Smoking Status: Never smoker Does the pt drink ETOH?: Yes Does the pt have substance abuse?: Yes - Immunizations Immunizations are current?: Yes - POLST Patient has POLST: No PD ED PE NORMAL - Vitals Vital signs reviewed: Yes (Hypertensive) - General General: Alert and oriented X 3, No acute distress, Well developed/nourished - HEENT HEENT: Atraumatic, PERRL, EOMI - Neck Neck: Supple, no meningeal sign, No bony TTP - Cardiac Cardiac: RRR, No murmur - Respiratory Respiratory: No respiratory distress, Clear bilaterally - Abdomen Abdomen: Normal bowel sounds, Soft, Non tender, Non distended, No organomegaly - Back Back: No CVA TTP, No spinal TTP - Derm Derm: Normal color, Warm and dry, No rash - Extremities Extremities: No deformity, No edema - Neuro Neuro: Alert and oriented X 3, rail gang supervisor 2-12 intact, No motor deficit, No sensory deficit, Normal speech Eye Opening: Spontaneous Motor: Obeys Commands Verbal: Oriented GCS Score: 15 - Psych Psych: Normal mood, Normal affect Results - Vitals Vitals: Vital Signs - 24 hr 02/01/21 02/01/21 02/01/21 08:43 09:31 09:39 Temperature 36.5 C Heart Rate 77 61 65 Respiratory 19 19 18 Rate Blood Pressure 142/97 H 147/82 H 147/82 H O2 Saturation 99 100 97 02/01/21 02/01/21 10:28 12:23 Temperature Heart Rate 85 99 Respiratory 14 21 Rate Blood Pressure 132/76 H 128/72 O2 Saturation 97 99 Oxygen O2 Source Room air - Labs Labs: Laboratory Tests 02/01/21 02/01/21 02/01/21 08:50 08:50 08:50 WBC 8.7 RBC 4.61 Hgb 14.9 Hct 44.3 MCV 96.1 MCH 32.3 H MCHC 33.6 RDW 13.2 Plt Count 198 MPV 8.6 Neut # (Auto) 7.1 H Lymph # (Auto) 1.0 L [place] # (Auto) 0.4 Eos # (Auto) 0.1 Baso # (Auto) 0.1 Absolute Nucleated RBC 0.00 Nucleated RBC % 0.0 Sodium 145 Potassium 3.5 Chloride 106 Carbon Dioxide 22 Anion Gap 17.0 H BUN 15 Creatinine 0.6 Estimated GFR (MDRD) 102 Glucose 79 Calcium 9.6 Total Bilirubin 0.8 AST 28 ALT 18 Alkaline Phosphatase 97 Total Protein 8.9 H Albumin 5.5 Globulin 3.4 Albumin/Globulin Ratio 1.6 Lipase 20 L Urine Color Urine Clarity Urine pH Ur Specific [place] Urine Protein Urine Glucose (UA) Urine Ketones Urine Occult Blood Urine Nitrite Urine Bilirubin Urine Urobilinogen Ur Leukocyte Esterase Urine RBC Urine WBC Ur Squamous Epith Cells Urine Bacteria Ur Microscopic Review Urine Culture Comments Ethyl Alcohol 111.0 02/01/21 09:00 WBC RBC Hgb Hct MCV MCH MCHC RDW Plt Count MPV Neut # (Auto) Lymph # (Auto) [place] # (Auto) Eos # (Auto) Baso # (Auto) Absolute Nucleated RBC Nucleated RBC % Sodium Potassium Chloride Carbon Dioxide Anion Gap BUN Creatinine Estimated GFR (MDRD) Glucose Calcium Total Bilirubin AST ALT Alkaline Phosphatase Total Protein Albumin Globulin Albumin/Globulin Ratio Lipase Urine Color YELLOW Urine Clarity CLEAR Urine pH 5.5 Ur Specific [place] >=1.030 H Urine Protein 30 H Urine Glucose (UA) NEGATIVE Urine Ketones 40 H Urine Occult Blood TRACE-INTA Urine Nitrite NEGATIVE Urine Bilirubin NEGATIVE Urine Urobilinogen 0.2 (NORMAL) Ur Leukocyte Esterase NEGATIVE Urine RBC 0-5 Urine WBC 0-3 Ur Squamous Epith Cells MOD Squamous H Urine Bacteria None Seen Ur Microscopic Review INDICATED Urine Culture Comments NOT INDICATED Ethyl Alcohol PD MEDICAL DECISION MAKING - ED course Complexity details: considered differential, d/w patient ED course: 61 year-old female presents to the emergency department with vomiting, diarrhea and dehydration after drinking alcohol. She is administered intravenous banana bag and Zofran. She feels much improved a second bag of saline is hung and the patient is administered dexamethasone 10 mg intravenously. Departure - Departure Disposition: 01 Home, Self Care Clinical Impression: Dehydration Instructions: ED Dehydration Follow-Up: ROSA HONG MD [Primary Care Provider] - Prescriptions: Ondansetron Odt [Zofran] 4 mg TL Q6H PRN #10 tablet PRN Reason: Nausea / Vomiting Discharge Date/Time: 02/01/21 12:31
[2021-02-01 09:38] LABS: BASOPHILS # (AUTO) 0.1 10^3/uL (0.0-0.1); BASOPHILS % (AUTO) 0.9 %; EOSINOPHILS # (AUTO) 0.1 10^3/uL (0.0-0.7); EOSINOPHILS % (AUTO) 0.7 %; HCT - HEMATOCRIT 44.3 % (37.0-47.0); HGB - HEMOGLOBIN 14.9 g/dL (12.0-16.0); LYMPHOCYTES % (AUTO) 11.3 %; MEAN CORPUSCULAR HEMOGLOBIN 32.3 pg (27.0-31.0); MEAN CORPUSCULAR HGB CONC 33.6 g/dL (32.0-36.0); MEAN CORPUSCULAR VOLUME 96.1 fL (81.0-99.0); MEAN PLATELET VOLUME 8.6 fL (7.9-10.8); MONOCYTES # (AUTO) 0.4 10^3/uL (0.0-1.0); MONOCYTES % (AUTO) 5.1 %; NEUTROPHILS # (AUTO) 7.1 10^3/uL (1.5-6.6); NEUTROPHILS % (AUTO) 81.8 %; PLT - PLATELET COUNT 198 10^3/uL (130-450); RED BLOOD COUNT 4.61 10^6/uL (4.20-5.40); RED CELL DISTRIBUTION WIDTH 13.2 % (12.0-15.0); WHITE BLOOD COUNT 8.7 x10^3/uL (4.8-10.8)
[2021-02-01 09:52] LABS: ALBUMIN 5.5 g/dL (3.2-5.5); ALBUMIN/GLOBULIN RATIO 1.6 (1.0-2.2); BILIRUBIN,TOTAL 0.8 mg/dL (0.2-1.0); CALCIUM 9.6 mg/dL (8.5-10.3); CREATININE 0.6 mg/dL (0.4-1.0); POTASSIUM 3.5 mmol/L (3.5-5.0); TOTAL PROTEIN 8.9 g/dL (6.7-8.2)
[2021-02-01] MEDS ORDERED: SODIUM CHLORIDE 0.9% 1,000 ML IV STA (11:13)
[2021-02-01] MEDS ORDERED: DEXAMETHASONE 10 MG/ML VIAL IVP STA (11:13)
[2021-02-01 12:24] VITALS: BP 128/72
== END 2021-02-01 12:31 | disposition home or self-care (01) ==
LOC: ED 08:34
DX: E86.0 Dehydration (principal)
CPT/HCPCS: 36415; 80053; 80320; 81001; 83690; 85025; 96361; 96365; 96375; 99284; J3411; 81003; 87086

== ENCOUNTER 2021-04-11 20:19 | Outpatient (CLI) | payer OTHER | END 2021-04-11 20:20 | disposition critical access hospital (66) | LOC: EMS 20:19 | DX: R10.10 Upper abdominal pain, unspecified (principal) | CPT/HCPCS: A0425; A0427 ==

== ENCOUNTER 2021-04-11 20:38 | Emergency (ER) | payer OTHER ==
--- NOTE | 2021-04-11 20:58 | ED Physician Documentation ---
PD HPI ABD PAIN - Stated complaint Stated Complaint: RUQ PAIN - Chief complaint Chief Complaint: Abd Pain - History obtained from History obtained from: Patient - History of Present Illness Timing - onset: How many hours ago (2), Today Timing - duration: Hours (2) Timing - details: Abrupt onset, Still present Quality: Cramping, Aching, Pain Location: RUQ Radiation: Right flank Improved by: No: Vomiting Worsened by: Moving, Palpation. No: Breathing Associated symptoms: Nausea, Vomiting. No: Fever, Diarrhea Similar symptoms before: Diagnosis (similar to gallbladder problems) Recently seen: Surgery (gallbladder surgery in past few months.) Review of Systems Constitutional: denies: Fever, Chills Nose: denies: Rhinorrhea / runny nose, Congestion Throat: denies: Sore throat Respiratory: denies: Cough GI: reports: Abdominal Pain, Constipation. 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 EQUIPMENT CUSTODIAN: Hysterectomy, section - Present Medications Home Medications: Ambulatory Orders Medication Instructions Recorded Confirmed Estrogens, Conjugated Cream 30 gm VG PRN PRN 12/07/17 04/11/21 [Premarin Cream] Dicyclomine [Bentyl] 10 mg PO QID PRN #15 cap 04/11/21 Ondansetron Odt [Zofran] 4 mg TL Q6H PRN #20 tablet 04/11/21 - Allergies Allergies/Adverse Reactions: Allergies Allergy/AdvReac Type Severity Reaction Status Date / Time Sulfa (Sulfonamide Allergy Intermediate Rash Verified 02/01/21 08:43 Antibiotics) - Social History Does the pt smoke?: No Smoking Status: Never smoker Does the pt drink ETOH?: Yes Does the pt have substance abuse?: Yes - Immunizations Immunizations are current?: Yes - POLST Patient has POLST: No PD ED PE NORMAL - Vitals Vital signs reviewed: Yes - General General: Alert and oriented X 3, Well developed/nourished, Other (appears in significant pain) - Neck Neck: Supple, no meningeal sign, No adenopathy - Cardiac Cardiac: RRR, No murmur - Respiratory Respiratory: Clear bilaterally - Abdomen Abdomen: Soft, No organomegaly, Other (very tener RUQ and epigastric with guarding and percussion tender locally. ) - Female Female : Deferred - Rectal Rectal: Deferred - Back Back: No CVA TTP - Derm Derm: Normal color, Warm and dry - Neuro Neuro: Alert and oriented X 3, No motor deficit, Normal speech Results - Vitals Vitals: Vital Signs - 24 hr 04/11/21 04/11/21 04/11/21 20:46 21:20 21:30 Temperature 36.9 C Heart Rate 87 57 L 57 L Respiratory 18 12 14 Rate Blood Pressure 150/83 H 152/97 H 147/74 H O2 Saturation 98 98 98 04/11/21 04/11/21 04/11/21 22:00 22:30 23:00 Temperature 36.8 C 36.9 C 36.7 C Heart Rate 75 56 L 61 Respiratory 12 12 14 Rate Blood Pressure 125/55 L 145/96 H 138/73 H O2 Saturation 96 96 98 04/11/21 04/12/21 23:30 00:00 Temperature 36.7 C 36.9 C Heart Rate 60 74 Respiratory 14 16 Rate Blood Pressure 155/85 H 150/85 H O2 Saturation 95 98 Oxygen O2 Source Room air - Labs Labs: Laboratory Tests 04/11/21 04/11/21 04/11/21 21:12 21:12 21:12 WBC 5.4 RBC 4.39 Hgb 14.1 Hct 40.9 MCV 93.2 MCH 32.1 H MCHC 34.5 RDW 13.0 Plt Count 155 MPV 8.7 Neut # (Auto) 3.9 Lymph # (Auto) 0.9 L [place] # (Auto) 0.5 Eos # (Auto) 0.1 Baso # (Auto) 0.0 Absolute Nucleated RBC 0.00 Nucleated RBC % 0.0 Sodium 137 Potassium 2.9 L Chloride 104 Carbon Dioxide 19 L Anion Gap 14.0 H BUN 25 H Creatinine 0.7 Estimated GFR (MDRD) 85 L Glucose 167 H Calcium 9.3 Total Bilirubin 2.4 H AST 88 H ALT 30 Alkaline Phosphatase 90 Troponin I High Sens 2.4 Total Protein 7.7 Albumin 4.7 Globulin 3.0 Albumin/Globulin Ratio 1.6 Lipase 23 Ethyl Alcohol < 5.0 - Rads (name of study) RUQ abd U/S Radiology: Prelim report reviewed (slight dilated CBD c/w surgery. No acute process. ), See rad report PD MEDICAL DECISION MAKING - ED course Complexity details: reviewed results (improved with pain meds and antiemetic. With the bili bump, presume possible CBD sludge/temproary blockage but seems patent now. ), considered differential, d/w patient Departure - Departure Disposition: 01 Home, Self Care Clinical Impression: Upper abdominal pain Condition: Stable Record reviewed to determine appropriate education?: Yes Instructions: ED Abdominal Pain Unkn Cause Follow-Up: ROSA HONG MD [Primary Care Provider] - Prescriptions: Dicyclomine [Bentyl] 10 mg PO QID PRN #15 cap PRN Reason: Abdominal Pain Ondansetron Odt [Zofran] 4 mg TL Q6H PRN #20 tablet PRN Reason: Nausea / Vomiting Comments: Your ultrasound appeared normal at this time. I think your pain episode was likely from sludging of the common bile duct which caused a slight bump in your liver enzymes on your blood tests. No signs of pancreatitis. No signs of persistent bile duct blockage at this time. I would anticipate improvement in the next day or 2. Recheck with your primary care this coming week for reevaluation and repeating blood tests for your liver function tests. Frequent fluids. Use Tylenol if needed for pains. Ondansetron if needed for nausea. Dicyclomine if needed for cramps and pains. We did dispense you for oxycodone pain tablets to use every 4-6 hours if needed. This should last to the next day or so. Discharge Date/Time: 04/12/21 00:37
[2021-04-11] MEDS ORDERED: ONDANSETRON 4 MG/2 ML VIAL IVP STA ×2 (21:04→23:46)
[2021-04-11] MEDS ORDERED: SODIUM CHLORIDE 0.9% 1,000 ML IV STA (21:04)
[2021-04-11] MEDS ORDERED: HYDROmorphone 1 MG/ML CARPUJECT IVP STA (21:04)
[2021-04-11] MEDS ORDERED: KETOROLAC 30 MG/ML VIAL IVP STA (21:04)
[2021-04-11 21:23] LABS: BASOPHILS % (AUTO) 0.2 %; EOSINOPHILS # (AUTO) 0.1 10^3/uL (0.0-0.7); EOSINOPHILS % (AUTO) 0.9 %; HCT - HEMATOCRIT 40.9 % (37.0-47.0); HGB - HEMOGLOBIN 14.1 g/dL (12.0-16.0); LYMPHOCYTES # (AUTO) 0.9 10^3/uL (1.5-3.5); LYMPHOCYTES % (AUTO) 16.4 %; MEAN CORPUSCULAR HEMOGLOBIN 32.1 pg (27.0-31.0); MEAN CORPUSCULAR HGB CONC 34.5 g/dL (32.0-36.0); MEAN CORPUSCULAR VOLUME 93.2 fL (81.0-99.0); MEAN PLATELET VOLUME 8.7 fL (7.9-10.8); MONOCYTES # (AUTO) 0.5 10^3/uL (0.0-1.0); MONOCYTES % (AUTO) 9.9 %; NEUTROPHILS # (AUTO) 3.9 10^3/uL (1.5-6.6); NEUTROPHILS % (AUTO) 72.2 %; PLT - PLATELET COUNT 155 10^3/uL (130-450); RED BLOOD COUNT 4.39 10^6/uL (4.20-5.40); WHITE BLOOD COUNT 5.4 x10^3/uL (4.8-10.8)
[2021-04-11 21:46] LABS: ALBUMIN 4.7 g/dL (3.2-5.5); ALBUMIN/GLOBULIN RATIO 1.6 (1.0-2.2); ALKALINE PHOSPHATASE 90 IU/L (42-121); ALT ALANINE AMINOTRANSFERASE 30 IU/L (10-60); AST ASPARTATE AMINOTRANSFERASE 88 IU/L (10-42); BILIRUBIN,TOTAL 2.4 mg/dL (0.2-1.0); BUN - BLOOD UREA NITROGEN 25 mg/dL (6-20); CALCIUM 9.3 mg/dL (8.5-10.3); CARBON DIOXIDE - CO2 19 mmol/L (21-32); CHLORIDE 104 mmol/L (101-111); CREATININE 0.7 mg/dL (0.4-1.0); ETOH - ETHANOL < 5.0 mg/dL; GFR - MDRD 85 (>89); GLUCOSE 167 mg/dL (70-100); LIPASE 23 U/L (22-51); POTASSIUM 2.9 mmol/L (3.5-5.0); SODIUM 137 mmol/L (135-145); TOTAL PROTEIN 7.7 g/dL (6.7-8.2)
--- NOTE | 2021-04-11 21:59 | XRAY Report ---
PROCEDURE: Chest 1 View X-Ray INDICATIONS: Chest pain TECHNIQUE: One view of the chest was acquired. COMPARISON: None FINDINGS: Surgical changes and devices: None. Lungs and pleura: No pleural effusions or pneumothorax. Chronic interstitial changes are present. Mediastinum: Mediastinal contours appear normal. Heart size is enlarged. Bones and chest wall: No suspicious bony lesions. Overlying soft tissues appear unremarkable. IMPRESSION: Chronic interstitial changes. No acute pulmonary process. Reviewed by: Marie Hays MD on 04/11/2021 9:58 PM PDT Approved by: Marie Hays MD on 04/11/2021 9:58 PM PDT Station ID: [id number]
[2021-04-11] MEDS ORDERED: DROPERIDOL 5 MG/2 ML VIAL IVP STA (22:40)
[2021-04-11] MEDS ORDERED: ONDANSETRON ODT 4 MG Prepack 2 TL PRN (23:46)
[2021-04-11] MEDS ORDERED: oxyCODONE/ACET 5/325 Prepack 4 PO STA (23:46)
[2021-04-12 00:15] VITALS: BP 150/85
--- NOTE | 2021-04-12 09:09 | Ultrasound Report ---
PROCEDURE: Abdomen Limited INDICATIONS: upper abd pain today; s/p CCY TECHNIQUE: Real-time focused scanning was performed of the abdomen, with image documentation. COMPARISON: 11/18/2020 FINDINGS: Interval cholecystectomy. Common duct was previously 9 mm, and contains a gallstone. Curre ntly, the common duct measures 12.5 mm. No stones are identified. The pancreatic duct has developed d ilatation, now measuring 5.1 mm. The visualized pancreatic parenchyma is unremarkable. Suggestion of dilated intrahepatic ducts. IMPRESSION: 1. Interval cholecystectomy. 2. Common duct and pancreatic duct are now dilated. Although no stone identified, cannot exclude dist al common duct stone. Comment: Consider MRCP. A preliminary report with the above findings was provided at the time of the study by [facility]. Above discussed with Dr. Calzada at the time of dictation on 04/12/2021 at 0807 hours, [facility] time Reviewed by: Demarcus Gutierrez MD on 04/12/2021 8:08 AM JOAN Approved by: Demarucs Gutierrez MD on 04/12/2021 8:08 AM JOAN Station ID: [id number]
--- NOTE | 2021-04-12 09:11 | ED Physician Documentation ---
ED Addendum - Addendum Addendum: 04/12/21 09:10 Received a telephone call from the radiologist on an over read this morning. He is concerned about the possibility of a common duct stone as he was not able to see the pancreatic duct. I called the patient this morning she is feeling improved and she is familiar with the common duct stone and she will get her chemistries remeasured this week with her primary care doctor.
== END 2021-04-12 00:37 | disposition home or self-care (01) ==
LOC: EDUNIT# → EDSEX → ED 20:38
DX: R10.11 Right upper quadrant pain (principal)
CPT/HCPCS: 36415; 71045; 76705; 80053; 80320; 83690; 84484; 85025; 93005; 96374; 96375; 96376; 99284; 99285; J1170

== ENCOUNTER 2021-05-03 01:44 | Outpatient (CLI) | payer OTHER | END 2021-05-03 01:45 | disposition critical access hospital (66) | LOC: EMS 01:44 | DX: R11.10 Vomiting, unspecified (principal); R10.9 Unspecified abdominal pain | CPT/HCPCS: A0425; A0427 ==

== ENCOUNTER 2021-05-03 02:03 | Emergency (ER) | payer OTHER ==
[2021-05-03] MEDS ORDERED: SODIUM CHLORIDE 0.9% 1,000 ML IV STA (02:08)
[2021-05-03] MEDS ORDERED: HALOPERIDOL 5 MG/ML VIAL IVP ONE (02:08)
[2021-05-03] MEDS ORDERED: diphenhydrAMINE INJ 50 MG/ML VIAL IVP STA (02:09)
--- NOTE | 2021-05-03 02:12 | ED Physician Documentation ---
PD HPI NVD - Stated complaint Stated Complaint: N/V - History obtained from History obtained from: Patient, EMS - History of Present Illness Timing - onset: Enter time (0800), Today Timing - duration: Hours Timing - details: Gradual onset, Still present Associated symptoms: Abdominal pain, Other (uncontrolled vomiting) Contributing factors: Other (canabis use) Improved by: Vomiting Worsened by: Position, Palpation Similar symptoms before: Diagnosis (vomiting) Recently seen: Emergency Dept - Additonal information Additional information: 61-year-old female has had a recurrence of vomiting this evening and this has been uncontrolled and she has some epigastric pain associated with this. She has had these symptoms previously and they have been very difficult to control. She does use cannabis on a regular basis. She has had her gallbladder out in November of this year. Since that time she has had episodic vomiting and has been evaluated and treated in the emergency department. 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: None : Kidney stones HEENT: None Psych: Bipolar disorder, Depression, Anxiety Musculoskeletal: None Derm: None - Past Surgical History Past Surgical History: Yes General: 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 /HEALTH FACILITIES SURVEYOR: Hysterectomy, section - Present Medications Home Medications: Ambulatory Orders Medication Instructions Recorded Confirmed Estrogens, Conjugated Cream 30 gm VG PRN PRN 12/07/17 04/11/21 [Premarin Cream] Dicyclomine [Bentyl] 10 mg PO QID PRN #15 cap 04/11/21 Ondansetron Odt [Zofran] 4 mg TL Q6H PRN #20 tablet 04/11/21 Ondansetron Odt [Zofran] 4 mg TL Q6H PRN #10 tablet 05/03/21 - Allergies Allergies/Adverse Reactions: Allergies Allergy/AdvReac Type Severity Reaction Status Date / Time Sulfa (Sulfonamide Allergy Intermediate Rash Verified 05/03/21 02:53 Antibiotics) - Social History Does the pt smoke?: No Smoking Status: Never smoker Does the pt drink ETOH?: Yes Does the pt have substance abuse?: Yes - Immunizations Immunizations are current?: Yes - POLST Patient has POLST: No PD ED PE NORMAL - Vitals Vital signs reviewed: Yes (Hypertensive) - General General: Alert and oriented X 3, Well developed/nourished - HEENT HEENT: Atraumatic, PERRL, EOMI - Neck Neck: Supple, no meningeal sign, No bony TTP - Cardiac Cardiac: RRR, No murmur - Respiratory Respiratory: No respiratory distress, Clear bilaterally - Abdomen Abdomen: Normal bowel sounds, Soft, Non distended, No organomegaly, Other (Mild generalized tenderness without focal guarding or rebound tenderness.) - Back Back: No CVA TTP, No spinal TTP - Derm Derm: Normal color, Warm and dry, No rash - Extremities Extremities: No deformity, No edema - Neuro Neuro: Alert and oriented X 3, rubber chemist 2-12 intact, No motor deficit, No sensory deficit, Normal speech Eye Opening: Spontaneous Motor: Obeys Commands Verbal: Oriented GCS Score: 15 - Psych Psych: Normal mood, Normal affect Results - Vitals Vitals: Vital Signs - 24 hr 05/03/21 05/03/21 05/03/21 02:10 02:41 02:56 Temperature 35.9 C L 36.6 C Heart Rate 70 64 95 Respiratory 20 17 16 Rate Blood Pressure 139/103 H 139/103 H 132/70 H O2 Saturation 100 95 96 05/03/21 05/03/21 05/03/21 03:52 04:00 04:36 Temperature 36.9 C Heart Rate 89 75 76 Respiratory 16 18 16 Rate Blood Pressure 137/106 H 145/116 H 127/70 O2 Saturation 96 98 95 05/03/21 05:50 Temperature 36.2 C L Heart Rate 75 Respiratory 16 Rate Blood Pressure 127/77 O2 Saturation 95 Oxygen O2 Source Room air - Labs Labs: Laboratory Tests 05/03/21 05/03/21 05/03/21 02:33 02:33 03:58 WBC 8.9 RBC 4.17 L Hgb 13.4 Hct 39.7 MCV 95.2 MCH 32.1 H MCHC 33.8 RDW 12.9 Plt Count 170 MPV 8.5 Neut # (Auto) 7.5 H Lymph # (Auto) 0.9 L Mcmullen # (Auto) 0.4 Eos # (Auto) 0.0 Baso # (Auto) 0.0 Absolute Nucleated RBC 0.00 Nucleated RBC % 0.0 Sodium 145 Potassium 3.4 L Chloride 110 Carbon Dioxide 18 L Anion Gap 17.0 H BUN 18 Creatinine 0.6 Estimated GFR (MDRD) 102 Glucose 144 H Calcium 9.0 Total Bilirubin 0.9 AST 24 ALT 20 Alkaline Phosphatase 82 Total Protein 7.4 Albumin 4.5 Globulin 2.9 Albumin/Globulin Ratio 1.6 Lipase 21 L Urine Color YELLOW Urine Clarity CLEAR Urine pH 5.5 Ur Specific [place] >=1.030 H Urine Protein NEGATIVE Urine Glucose (UA) NEGATIVE Urine Ketones 40 H Urine Occult Blood NEGATIVE Urine Nitrite NEGATIVE Urine Bilirubin NEGATIVE Urine Urobilinogen 0.2 (NORMAL) Ur Leukocyte Esterase NEGATIVE Ur Microscopic Review NOT INDICATED Urine Culture Comments NOT INDICATED Urine Opiates Screen NEGATIVE Ur Oxycodone Screen NEGATIVE Urine Methadone Screen NEGATIVE Ur Propoxyphene Screen NEGATIVE Ur Barbiturates Screen NEGATIVE Ur Tricyclics Screen NEGATIVE Ur Phencyclidine Scrn NEGATIVE Ur Amphetamine Screen NEGATIVE U Methamphetamines Scrn NEGATIVE U Benzodiazepines Scrn NEGATIVE Urine Cocaine Screen NEGATIVE U Cannabinoids Screen POSITIVE H PD MEDICAL DECISION MAKING - ED course Complexity details: reviewed old records, reviewed results, re-evaluated patient, considered differential, d/w patient ED course: 61-year-old female with recurrent abdominal pain and vomiting is a cannabis user and she is not been diagnosed previously with cannabis hyperemesis but this seems like it might fit the picture of this patient's specific problem. Today she is administered Haldol and Benadryl for nausea control as well as a liter of saline and she has some improvement and then as some worsening she is administered some droperidol which does not seem to help that much. She subsequently is administered Zofran and again this has some relief.The patient presented to the emergency department in [facility] with nausea and vomiting. Departure - Departure Disposition: 01 Home, Self Care Clinical Impression: Cyclical vomiting Condition: Stable Instructions: ED Nausea Vomiting Follow-Up: ROSA HONG MD [Primary Care Provider] - Prescriptions: Ondansetron Odt [Zofran] 4 mg TL Q6H PRN #10 tablet PRN Reason: Nausea / Vomiting Comments: Today it appears you have had another cycle of vomiting which is difficult to control. This can be related to something called cannabis hyperemesis. The recommendation is to reduce your use of cannabis.
[2021-05-03 02:48] LABS: BASOPHILS % (AUTO) 0.2 %; HCT - HEMATOCRIT 39.7 % (37.0-47.0); HGB - HEMOGLOBIN 13.4 g/dL (12.0-16.0); LYMPHOCYTES # (AUTO) 0.9 10^3/uL (1.5-3.5); LYMPHOCYTES % (AUTO) 10.2 %; MEAN CORPUSCULAR HEMOGLOBIN 32.1 pg (27.0-31.0); MEAN CORPUSCULAR HGB CONC 33.8 g/dL (32.0-36.0); MEAN CORPUSCULAR VOLUME 95.2 fL (81.0-99.0); MEAN PLATELET VOLUME 8.5 fL (7.9-10.8); MONOCYTES # (AUTO) 0.4 10^3/uL (0.0-1.0); MONOCYTES % (AUTO) 4.8 %; NEUTROPHILS # (AUTO) 7.5 10^3/uL (1.5-6.6); NEUTROPHILS % (AUTO) 84.2 %; PLT - PLATELET COUNT 170 10^3/uL (130-450); RED BLOOD COUNT 4.17 10^6/uL (4.20-5.40); RED CELL DISTRIBUTION WIDTH 12.9 % (12.0-15.0); WHITE BLOOD COUNT 8.9 x10^3/uL (4.8-10.8)
[2021-05-03 03:03] LABS: ALBUMIN 4.5 g/dL (3.2-5.5); ALBUMIN/GLOBULIN RATIO 1.6 (1.0-2.2); BILIRUBIN,TOTAL 0.9 mg/dL (0.2-1.0); CREATININE 0.6 mg/dL (0.4-1.0); POTASSIUM 3.4 mmol/L (3.5-5.0); TOTAL PROTEIN 7.4 g/dL (6.7-8.2)
[2021-05-03] MEDS ORDERED: DROPERIDOL 5 MG/2 ML VIAL IVP STA (03:11)
[2021-05-03] MEDS ORDERED: POTASSIUM CHLOR 10 MEQ/100 ML 10 MEQ/100 ML BAG IV ONE (03:29)
[2021-05-03 04:02] LABS: MUDS CUTOFF CONCENTRATIONS CUTOFF CONC BELOW:
[2021-05-03 04:06] LABS: BILIRUBIN,URINE NEGATIVE (NEGATIVE); GLUCOSE, URINE (UA) NEGATIVE (NEGATIVE); KETONES,URINE (UA) 40 mg/dL (NEGATIVE); LEUKOCYTE ESTERASE, URINE NEGATIVE (NEGATIVE); NITRITE,URINE NEGATIVE (NEGATIVE); OCCULT BLOOD,URINE NEGATIVE (NEGATIVE); PH,URINE 5.5 PH (5.0-7.5); PROTEIN,URINE NEGATIVE (NEGATIVE); UROBILINOGEN,URINE 0.2 (NORMAL) E.U./dL (NORMAL)
[2021-05-03 04:09] LABS: CLARITY,URINE CLEAR (CLEAR)
[2021-05-03] MEDS ORDERED: ONDANSETRON 4 MG/2 ML VIAL IVP STA (04:09)
[2021-05-03 04:16] LABS: AMPHETAMINE SCREEN,URINE NEGATIVE (NEGATIVE); BARBITURATE SCREEN,UR NEGATIVE (NEGATIVE); BENZODIAZEPINES SCREEN, URINE NEGATIVE (NEGATIVE); COCAINE SCREEN URINE NEGATIVE (NEGATIVE); METHADONE SCREEN, URINE NEGATIVE (NEGATIVE); METHAMPHETAMINES SCREEN, URINE NEGATIVE (NEGATIVE); OPIATE SCREEN, URINE NEGATIVE (NEGATIVE); OXYCODONE SCREEN, URINE NEGATIVE (NEGATIVE); PROPOXYPHENE SCREEN, URINE NEGATIVE (NEGATIVE); THC CANNABINOID SCREEN, URINE POSITIVE (NEGATIVE); TRICYCLIC ANTIDEPRESSANT,URINE NEGATIVE (NEGATIVE)
[2021-05-03 06:14] VITALS: BP 141/66
== END 2021-05-03 06:14 | disposition home or self-care (01) ==
LOC: EDUNIT# → SUPCPDRO 02:03 → ED 02:03
DX: R11.15 Cyclical vomiting syndrome unrelated to migraine (principal)
CPT/HCPCS: 36415; 80053; 80306; 81003; 83690; 85025; 96365; 96375; 99283; 99284; J1200; 81001; 87086

== ENCOUNTER 2021-06-24 05:23 | Emergency (ER) | payer OTHER ==
[2021-06-24] MEDS ORDERED: SODIUM CHLORIDE 0.9% 1,000 ML IV STA (06:00)
[2021-06-24] MEDS ORDERED: ONDANSETRON 4 MG/2 ML VIAL IVP STA (06:00)
[2021-06-24] MEDS ORDERED: HYDROmorphone 1 MG/ML CARPUJECT IVP STA ×2 (06:00→06:49)
[2021-06-24 06:08] LABS: BASOPHILS % (AUTO) 0.4 %; EOSINOPHILS # (AUTO) 0.1 10^3/uL (0.0-0.7); EOSINOPHILS % (AUTO) 1.1 %; HCT - HEMATOCRIT 42.9 % (37.0-47.0); HGB - HEMOGLOBIN 14.5 g/dL (12.0-16.0); LYMPHOCYTES # (AUTO) 0.3 10^3/uL (1.5-3.5); MEAN CORPUSCULAR HEMOGLOBIN 31.9 pg (27.0-31.0); MEAN CORPUSCULAR HGB CONC 33.8 g/dL (32.0-36.0); MEAN CORPUSCULAR VOLUME 94.5 fL (81.0-99.0); MEAN PLATELET VOLUME 8.8 fL (7.9-10.8); MONOCYTES # (AUTO) 0.4 10^3/uL (0.0-1.0); MONOCYTES % (AUTO) 7.7 %; NEUTROPHILS # (AUTO) 4.5 10^3/uL (1.5-6.6); NEUTROPHILS % (AUTO) 84.6 %; PLT - PLATELET COUNT 161 10^3/uL (130-450); RED BLOOD COUNT 4.54 10^6/uL (4.20-5.40); RED CELL DISTRIBUTION WIDTH 12.9 % (12.0-15.0); WHITE BLOOD COUNT 5.3 x10^3/uL (4.8-10.8)
[2021-06-24 06:16] LABS: ALBUMIN 4.5 g/dL (3.2-5.5); ALBUMIN/GLOBULIN RATIO 1.4 (1.0-2.2); BILIRUBIN,TOTAL 1.4 mg/dL (0.2-1.0); CALCIUM 9.4 mg/dL (8.5-10.3); CREATININE 0.7 mg/dL (0.4-1.0); POTASSIUM 3.3 mmol/L (3.5-5.0); TOTAL PROTEIN 7.7 g/dL (6.7-8.2)
[2021-06-24] MEDS ORDERED: IOPAMIDOL-300 100 ML VIAL ONE (06:18)
[2021-06-24] MEDS ORDERED: IOPAMIDOL-300 100 ML VIAL IVP ONE (06:44)
[2021-06-24] MEDS ORDERED: KETOROLAC 15 MG/ML VIAL IVP STA (06:49)
[2021-06-24] MEDS ORDERED: DROPERIDOL 5 MG/2 ML VIAL IVP STA (06:49)
--- NOTE | 2021-06-24 07:43 | ED Physician Documentation ---
PD HPI ABD PAIN - Stated complaint Stated Complaint: ABD PX, VOMITING - Chief complaint Chief Complaint: Abd Pain - History obtained from History obtained from: Patient - History of Present Illness Timing - onset: How many hours ago (few) Timing - details: Abrupt onset, Still present Quality: Cramping, Aching, Pain Location: LUQ, Periumbilical Radiation: Left flank. No: Chest, Lower back Improved by: Vomiting (judt briefly) Worsened by: Eating Associated symptoms: Nausea, Vomiting. No: Fever, Diarrhea, Constipation, Dysuria Similar symptoms before: Diagnosis (She has had episodes of upper abdominal pain and vomiting related to sludging of the common bile duct and elevated liver enzymes. This pain is different location.) Recently seen: Not recently seen Review of Systems Constitutional: denies: Fever, Chills Nose: denies: Rhinorrhea / runny nose, Congestion Throat: denies: Sore throat Respiratory: denies: Cough GI: reports: Abdominal Pain (the past few hours abruptly), Nausea, Vomiting : denies: Dysuria Skin: denies: Rash, Lesions Neurologic: reports: Generalized weakness. 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: None : Kidney stones HEENT: None Psych: Bipolar disorder, Depression, Anxiety Musculoskeletal: None Derm: None - Past Surgical History Past Surgical History: Yes General: 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 /COLLECTIONS MANAGER: Hysterectomy, section - Present Medications Home Medications: Ambulatory Orders Medication Instructions Recorded Confirmed Estrogens, Conjugated Cream 30 gm VG PRN PRN 12/07/17 06/24/21 [Premarin Cream] Famotidine [Pepcid] 20 mg PO BID #20 tablet 06/24/21 HYDROcod/ACETAM 5/325 [Mona 5/325] 1 ea PO Q6H PRN #12 tablet 06/24/21 Ondansetron Odt [Zofran] 4 mg TL Q6H PRN #15 tablet 06/24/21 - Allergies Allergies/Adverse Reactions: Allergies Allergy/AdvReac Type Severity Reaction Status Date / Time Sulfa (Sulfonamide Allergy Intermediate Rash Verified 06/24/21 05:40 Antibiotics) - Social History Does the pt smoke?: No Smoking Status: Never smoker Does the pt drink ETOH?: Yes Does the pt have substance abuse?: Yes - Immunizations Immunizations are current?: Yes - POLST Patient has POLST: No PD ED PE NORMAL - Vitals Vital signs reviewed: Yes - General General: Alert and oriented X 3, Well developed/nourished, Other (Appears in marked distress holding her upper abdomen and holding a emesis bag.) - HEENT HEENT: Pharynx benign. No: Moist mucous membranes - Neck Neck: Supple, no meningeal sign, No adenopathy - Cardiac Cardiac: RRR, No murmur - Respiratory Respiratory: Clear bilaterally - Abdomen Abdomen: Soft, Non distended, No organomegaly, Other (tender mid abd and LUQ with local guarding. No percussion tenderness. ). No: Normal bowel sounds ( diminished) - Female Female : Deferred - Rectal Rectal: Deferred - Back Back: No CVA TTP - Derm Derm: Normal color, Warm and dry - Extremities Extremities: Normal ROM s pain, No edema, No calf tenderness / cord - Neuro Neuro: Alert and oriented X 3, No motor deficit, Normal speech Results - Vitals Vitals: Vital Signs - 24 hr 06/24/21 06/24/21 06/24/21 05:39 05:40 06:17 Temperature 36.6 C 36.2 C L Heart Rate 92 92 75 Respiratory 19 19 20 Rate Blood Pressure 142/76 H 135/99 H O2 Saturation 100 100 99 06/24/21 07:08 Temperature Heart Rate 61 Respiratory 19 Rate Blood Pressure 120/70 O2 Saturation 96 Oxygen O2 Source Nasal cannula - Labs Labs: Laboratory Tests 06/24/21 06/24/21 05:40 05:40 WBC 5.3 RBC 4.54 Hgb 14.5 Hct 42.9 MCV 94.5 MCH 31.9 H MCHC 33.8 RDW 12.9 Plt Count 161 MPV 8.8 Neut # (Auto) 4.5 Lymph # (Auto) 0.3 L [place] # (Auto) 0.4 Eos # (Auto) 0.1 Baso # (Auto) 0.0 Absolute Nucleated RBC 0.00 Nucleated RBC % 0.0 Sodium 141 Potassium 3.3 L Chloride 106 Carbon Dioxide 23 Anion Gap 12.0 BUN 24 H Creatinine 0.7 Estimated GFR (MDRD) 85 L Glucose 141 H Calcium 9.4 Total Bilirubin 1.4 H AST 21 ALT 15 Alkaline Phosphatase 91 Total Protein 7.7 Albumin 4.5 Globulin 3.2 Albumin/Globulin Ratio 1.4 Lipase 29 - Rads (name of study) abd/Pelvic CT Radiology: Prelim report reviewed (No acute findings in the abdomen or pelvis. Status post cholecystectomy. No bowel obstruction or convincing acute bowel inflammation.), See rad report PD MEDICAL DECISION MAKING - ED course Complexity details: reviewed results, re-evaluated patient (He had some relief with initial Zofran and Dilaudid. However much considerable improvement with Inapsine IV and some more pain medicine. She feels able to take sips of fluid in feels able to go home.), considered differential, d/w patient Departure - Departure Disposition: Home, Self Care Clinical Impression: Acute upper abdominal pain Nausea & vomiting Qualifiers: Vomiting type: unspecified Vomiting Intractability: intractable Qualified Code(s): R11.2 - Nausea with vomiting, unspecified Condition: Stable Record reviewed to determine appropriate education?: Yes Instructions: ED Nausea Vomiting Follow-Up: ROSA HONG MD [Primary Care Provider] - Prescriptions: HYDROcod/ACETAM 5/325 [Mona 5/325] 1 ea PO Q6H PRN #12 tablet PRN Reason: Pain Famotidine [Pepcid] 20 mg PO BID #20 tablet Ondansetron Odt [Zofran] 4 mg TL Q6H PRN #15 tablet PRN Reason: Nausea / Vomiting Comments: Is unclear the cause of your symptoms this morning. No signs of acute abnormality on your CT scan. Your blood tests are good without any elevation of pancreas or liver enzymes. Consider irritation of the stomach such as gastritis. There can be occasional episodes of marked nausea vomiting and pain associated with cannabis use as well. Unclear the cause of your episode today at this time. Presuming some irritation of the stomach, I would suggest famotidine acid reducing medicine for the next 10 days. Add ondansetron if needed for nausea. Do not use any naproxen anti-inflammatories as this can irritate your stomach. Add Tylenol every 4-6 hours if needed for pain. Add hydrocodone if needed for worse pain. I wrote a very short prescription for this if needed. Follow-up with your primary care if not well resolved over the next couple of days return if worse. Transmitted your prescriptions to [facility] in [place]. I am prescribing a short course of narcotic pain medication for you. These are potentially dangerous and addictive medications that should be used carefully. These medications may constipate you. Take an [id number] stool softener such as docusate twice daily with plenty of water while taking these medications. If you go 24 hours without a bowel movement, take [id number] MiraLAX, per package instructions. Do not drink or drive while taking these medications. If you received narcotic or sedating medications while in the emergency department do not drive for 24 hours. Store this medication in a safe, secure place and out of reach of children. It is a violation of federal law to give or sell this medication to another person or to use in a manner other than prescribed. The ED will not refill narcotic prescriptions, including prescriptions lost or stolen. You can dispose of unwanted medications at the [facility]'s office or at several pharmacies such as [email or web address].
[2021-06-24 08:00] VITALS: BP 124/64
--- NOTE | 2021-06-24 10:28 | CT Report ---
PROCEDURE: Abdomen/Pelvis W INDICATIONS: LLQ Abdominal pain, diverticulitis suspected CONTRAST: IV CONTRAST: Isovue 300 ml: 100 PO CONTRAST: *NO PO CONTRAST TECHNIQUE: After the administration of intravenous contrast, 5 mm thick sections acquired from the diaphragms to the symphysis. 5 mm thick coronal and sagittal reformats were acquired. For radiation dose reducti on, the following was used: automated exposure control, adjustment of mA and/or kV according to dora ent size. COMPARISON: CT abdomen and pelvis, 2017. CT KUB, 05/21/2016. FINDINGS: Image quality: Excellent. ABDOMEN: Lung bases: There is a 6 mm nodule in the right lower lobe (series 5 image 23) and a 5 mm nodule in t he right middle lobe (series 5 image 1). Both nodules were not visualized on. Heart size is normal. Solid organs: Liver and spleen are normal in size and enhancement. Gallbladder is surgically absent . Common bile duct is dilated measuring up to 14 mm. Pancreas enhances normally. No adrenal nodules . Kidneys demonstrate normal size and enhancement, without hydronephrosis. Peritoneum and bowel: Bowel loops demonstrate normal wall thickness and caliber. No free fluid or a ir. Nodes and vessels: No retroperitoneal or mesenteric adenopathy by size criteria. Aorta and inferior vena cava are normal in size. Miscellaneous: No ventral hernias. PELVIS: Genitourinary: Bladder wall thickness is normal. Miscellaneous: No inguinal hernias or adenopathy. Bones: No suspicious bony lesions. No vertebral body compression fractures. There is mild levoscoli osis and degenerative changes in lumbar spine. IMPRESSION: 1. No acute abdominal disease in abdomen or pelvis. 2. A 6 mm right lower lobe nodule and a 5 mm nodule in the right middle lobe. Recommend a short-term follow-up CT in 3 months. 3. 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. The common bile duct is dilated. No obstructing masses or stones. Please correlat e with serum bilirubin. If there is clinical suspicion for biliary obstruction, MRCP is recommended. No significant discrepancy with the preliminary interpretation. Reviewed by: Twila Duron MD on 06/24/2021 10:26 AM PDT Approved by: Twila Duron MD on 06/24/2021 10:26 AM PDT Station ID: [id number]
== END 2021-06-24 08:00 | disposition home or self-care (01) ==
LOC: ED 05:23
DX: R10.12 Left upper quadrant pain (principal); R10.33 Periumbilical pain; R11.2 Nausea with vomiting, unspecified; Z90.49 Acquired absence of other specified parts of digestive tract
CPT/HCPCS: 36415; 74177; 80053; 83690; 85025; 96361; 96374; 96375; 96376; 99284; 99285; J1170; Q9967

== ENCOUNTER 2021-06-29 22:42 | Outpatient (CLI) | payer OTHER | END 2021-06-29 22:43 | disposition critical access hospital (66) | LOC: EMS 22:42 | DX: R10.9 Unspecified abdominal pain (principal); R11.2 Nausea with vomiting, unspecified | CPT/HCPCS: A0425; A0429 ==

== ENCOUNTER 2021-06-29 23:05 | Observation (INO) | payer OTHER ==
[2021-06-29] MEDS ORDERED: SODIUM CHLORIDE 0.9% 1,000 ML IV STA (23:46)
[2021-06-30 00:02] LABS: BASOPHILS % (AUTO) 0.4 %; EOSINOPHILS # (AUTO) 0.1 10^3/uL (0.0-0.7); EOSINOPHILS % (AUTO) 0.9 %; HCT - HEMATOCRIT 41.4 % (37.0-47.0); HGB - HEMOGLOBIN 13.9 g/dL (12.0-16.0); LYMPHOCYTES # (AUTO) 1.3 10^3/uL (1.5-3.5); LYMPHOCYTES % (AUTO) 16.4 %; MEAN CORPUSCULAR HEMOGLOBIN 31.7 pg (27.0-31.0); MEAN CORPUSCULAR HGB CONC 33.6 g/dL (32.0-36.0); MEAN CORPUSCULAR VOLUME 94.3 fL (81.0-99.0); MEAN PLATELET VOLUME 8.7 fL (7.9-10.8); NEUTROPHILS # (AUTO) 5.7 10^3/uL (1.5-6.6); NEUTROPHILS % (AUTO) 69.9 %; PLT - PLATELET COUNT 183 10^3/uL (130-450); RED BLOOD COUNT 4.39 10^6/uL (4.20-5.40); WHITE BLOOD COUNT 8.2 x10^3/uL (4.8-10.8)
[2021-06-30] MEDS ORDERED: DROPERIDOL 5 MG/2 ML VIAL IVP STA (00:06)
[2021-06-30] MEDS ORDERED: HYDROmorphone 0.5 MG/0.5 ML SYRINGE IVP STA (00:06)
[2021-06-30 01:13] LABS: ALBUMIN/GLOBULIN RATIO 1.2 (1.0-2.2); BILIRUBIN,TOTAL 1.1 mg/dL (0.2-1.0); CALCIUM 8.9 mg/dL (8.5-10.3); CREATININE 0.5 mg/dL (0.4-1.0); ETOH - ETHANOL 69.8 mg/dL; POTASSIUM 3.5 mmol/L (3.5-5.0); TOTAL PROTEIN 7.3 g/dL (6.7-8.2)
[2021-06-30] MEDS ORDERED: SODIUM CHLORIDE 0.9% 1,000 ML IV STA (02:47)
[2021-06-30] MEDS ORDERED: PROMETHAZINE INJ 25 MG in SODIUM CHLORIDE 0.9% 50 ML IV STA (02:47)
[2021-06-30] MEDS ORDERED: HYDROmorphone 1 MG/ML CARPUJECT IVP STA (02:47)
[2021-06-30] MEDS ORDERED: PROMETHAZINE 25 MG/1 ML VIAL ONE (02:54)
[2021-06-30] MEDS ORDERED: FOLIC ACID INJ 1 MG, THIAMINE INJ 100 MG, MAGNESIUM SULFATE 2 GM, MULTIVITAMIN 10 ML in... IV STA ×5 (03:20)
[2021-06-30] MEDS ORDERED: LORazepam 2 MG/ML VIAL IVP PRN (03:20)
[2021-06-30] MEDS ORDERED: LORazepam 1 MG TABLET PO PRN (03:21)
[2021-06-30] MEDS ORDERED: ONDANSETRON 4 MG/2 ML VIAL IVP PRN (03:23)
[2021-06-30] MEDS ORDERED: PROCHLORPERAZINE 10 MG/2 ML VIAL IVP PRN (03:23)
[2021-06-30 03:27] LABS: BILIRUBIN,URINE NEGATIVE (NEGATIVE); GLUCOSE, URINE (UA) 100 mg/dL (NEGATIVE); KETONES,URINE (UA) NEGATIVE (NEGATIVE); LEUKOCYTE ESTERASE, URINE NEGATIVE (NEGATIVE); NITRITE,URINE NEGATIVE (NEGATIVE); OCCULT BLOOD,URINE NEGATIVE (NEGATIVE); PH,URINE 7.5 PH (5.0-7.5); PROTEIN,URINE NEGATIVE (NEGATIVE); UROBILINOGEN,URINE 1 (NORMAL) E.U./dL (NORMAL)
[2021-06-30 03:29] LABS: CLARITY,URINE CLEAR (CLEAR)
[2021-06-30] MEDS ORDERED: POTASSIUM CHLOR 10 MEQ/100 ML 10 MEQ/100 ML BAG IV ONE (03:35)
[2021-06-30 04:02] LABS: B. PARAPERTUSSIS- RESP PCR PAN NOT DETECTED; B. PERTUSSIS- RESP PCR PANEL NOT DETECTED; C. PNEUMONIAE- RESP PCR PANEL NOT DETECTED; CORONAVIRUS 229E-RESP PCR NOT DETECTED; CORONAVIRUS HKU1-RESP PCR NOT DETECTED; CORONAVIRUS NL63-RESP PCR NOT DETECTED; CORONAVIRUS OC43-RESP PCR NOT DETECTED; HUMAN METAPNEUMOVIRUS NOT DETECTED; INFLUENZA A- RESP PCR PANEL NOT DETECTED; INFLUENZA B - RESP PCR PANEL NOT DETECTED; M. PNEUMONIAE- RESP PCR PANEL NOT DETECTED; PARAINFLUENZA VIRUS 1 NOT DETECTED; PARAINFLUENZA VIRUS 2 NOT DETECTED; PARAINFLUENZA VIRUS 3 NOT DETECTED; PARAINFLUENZA VIRUS 4 NOT DETECTED; RHINOVIRUS/ENTEROVIRUS NOT DETECTED; RSV- RESP PCR PANEL NOT DETECTED; SARS-CoV-2 -RESP PCR PANEL NOT DETECTED
[2021-06-30] MEDS ORDERED: MAGNESIUM SULFATE 1 GM/2 ML VIAL ONE (04:27)
[2021-06-30] MEDS ORDERED: THIAMINE 100 MG/1 ML 2 ML MDV ONE (04:27)
[2021-06-30] MEDS ORDERED: METOCLOPRAMIDE 10 MG/2 ML VIAL IVP PRN (04:36)
[2021-06-30] MEDS ORDERED: BISACODYL 10 MG SUPP PR PRN (04:37)
[2021-06-30] MEDS ORDERED: MAGNESIUM HYDROXIDE 2,400 MG/30 ML UDC PO PRN (04:37)
[2021-06-30] MEDS: MORPHINE 2 MG/ML CARPUJECT IVP PRN ×3 (04:55→17:51)
[2021-06-30] MEDS: SODIUM CHLORIDE FLUSH 0.9% 10 ML SYRINGE IVP PRN ×3 (04:56→17:52)
[2021-06-30 05:53] LABS: BASOPHILS % (AUTO) 0.4 %; EOSINOPHILS % (AUTO) 0.2 %; HCT - HEMATOCRIT 38.9 % (37.0-47.0); HGB - HEMOGLOBIN 12.8 g/dL (12.0-16.0); LYMPHOCYTES # (AUTO) 0.9 10^3/uL (1.5-3.5); LYMPHOCYTES % (AUTO) 15.6 %; MEAN CORPUSCULAR HEMOGLOBIN 31.2 pg (27.0-31.0); MEAN CORPUSCULAR HGB CONC 32.9 g/dL (32.0-36.0); MEAN CORPUSCULAR VOLUME 94.9 fL (81.0-99.0); MEAN PLATELET VOLUME 8.4 fL (7.9-10.8); MONOCYTES # (AUTO) 0.6 10^3/uL (0.0-1.0); MONOCYTES % (AUTO) 9.8 %; NEUTROPHILS # (AUTO) 4.2 10^3/uL (1.5-6.6); NEUTROPHILS % (AUTO) 73.5 %; PLT - PLATELET COUNT 165 10^3/uL (130-450); RED CELL DISTRIBUTION WIDTH 12.9 % (12.0-15.0); WHITE BLOOD COUNT 5.7 x10^3/uL (4.8-10.8)
--- NOTE | 2021-06-30 06:01 | HISTORY & PHYSICAL EXAMINATION ---
History and Physical - History and Physical Chief complaint: Upper quadrant abdominal pain Source of history: ER signout, patient, medical record review History of present illness: The patient is a 61-year-old white female with past medical history of alcohol use, gastroesophageal reflux who underwent cholecystectomy in November 2020. Patient states that she has been abstinent from alcohol for over a year. Following cholecystectomy she developed episodic but recurrent abdominal pain and since then she had several ER visits. She was seen in March at which time she had an ultrasound showing possible biliary sludge and subsequently she was seen on June 24, evaluated for abdominal pain had CT scan of the abdomen which showed a questionable biliary dilatation. The clinical course and liver function tests however were not consistent with biliary obstruction therefore no further work-up was done. In the past patient had normal lipase. Her is ER visits usually suggested benign etiology/probable functional abdominal pain, after hydration and symptom control she was always able to discharge home. Overnight on June 29 to June 30 the patient presented to the ER complaining of somewhat sudden onset of epigastric abdominal pain which started at 8 PM on June 29, radiated around the trunk in a bandlike fashion. The intensity was 11 out of 10. It was a constant nonresolving pain associated with nausea however no vomiting. There was no fever. Regarding bowel movements, at last ER visit the patient was given oxycodone and she became constipated after taking the medication. She admitted to drinking a bottle of red wine last night however other than that she did not report recent alcohol use. Upon presentation to the ER the patient had elevated temperature, was initially tachycardic however improved on IV hydration and pain control. She tolerated oral liquid intake and was nauseous but did not vomit. Lipase was elevated at around 500. Blood alcohol level was elevated as well. Bilirubin was not elevated. AST was elevated but alk phos was normal. ALT was slightly elevated. As the patient did well during the ER stay and improved on therapies outpatient treatment was entertained however she continued with nausea and continued to require pain medication therefore admission was requested. Pertinent results of the ER work-up are listed below. Past medical history: GERD 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 Alcohol abuse Chronic abdominal pain Outpatient medications: None taken except for Premarin Allergies: Sulfa Family history: No pertinent family history. Social history and functional status: The patient does not smoke cigarettes and denies drug use. She has history of alcohol use however reports being abstinent for over a year. He started drinking last night and drunk a bottle of red wine. Other than that he denies recent alcohol use. She is a functional adult. Ambulates unassisted. Drives. CODE STATUS: Full code Review of symptoms: 12 point review done, pertinent positives and negatives listed above at history present illness, there was no additional positive. Physical exam: Vital Signs - 24 hr 06/29/21 06/30/21 06/30/21 23:07 01:00 02:41 Temperature 37.8 C 36.2 C L Heart Rate 63 105 H 96 Heart Rate [ Brachial] Respiratory 20 14 17 Rate Blood Pressure 153/78 H 132/66 H 142/83 H Blood Pressure [Right Brachial artery] O2 Saturation 100 95 97 06/30/21 06/30/21 03:47 04:06 Temperature 36.6 C Heart Rate 68 Heart Rate [ 62 Brachial] Respiratory 14 20 Rate Blood Pressure 113/70 Blood Pressure 137/75 H [Right Brachial artery] O2 Saturation 94 96 Oxygen O2 Source Room air General: The patient is a well-developed white female; sleeping when I enter her room in the ER however arouses on verbal stimuli and converses appropriately. Not in distress initially, however has an episode of nausea and diaphoresis without vomiting during my exam. HEENT: Moist oral mucosa, no oral lesions. Respiratory: No increased work of breathing, clear to auscultation bilaterally without wheezes or crackles. CVS: S1, S2, Regular, no murmur rub or gallop. Abdomen: Distended abdomen with diffuse epigastric and upper quadrant tenderness, bowel tones hypoactive. No rebound. Neurologic: Alert, oriented; no focal lateralizing sign. Psych: Cooperative. Lymph: No edema. Skin: No pallor or rash. Diagnostic work-up: Past Imaging reviewed per electronic medical record, included CT scan from June 2021 and ultrasound from March 2021. Both questioned common bile duct dilatation. Liver function tests however were not significantly abnormal. Laboratory Tests 06/30/21 06/30/21 06/30/21 00:05 00:17 00:17 WBC 8.2 RBC 4.39 Hgb 13.9 Hct 41.4 MCV 94.3 MCH 31.7 H MCHC 33.6 RDW 13.0 Plt Count 183 MPV 8.7 Neut # (Auto) 5.7 Lymph # (Auto) 1.3 L [place] # (Auto) 1.0 Eos # (Auto) 0.1 Baso # (Auto) 0.0 Absolute Nucleated RBC 0.00 Nucleated RBC % 0.0 Sodium 138 Potassium 3.5 Chloride 105 Carbon Dioxide 20 L Anion Gap 13.0 BUN 7 Creatinine 0.5 Estimated GFR (MDRD) 126 Glucose 137 H Calcium 8.9 Total Bilirubin 1.1 H AST 276 H ALT 85 H Alkaline Phosphatase 83 Troponin I High Sens 2.9 Total Protein 7.3 Albumin 4.0 Globulin 3.3 Albumin/Globulin Ratio 1.2 Lipase 550 H Urine Color Urine Clarity Urine pH Ur Specific [place] Urine Protein Urine Glucose (UA) Urine Ketones Urine Occult Blood Urine Nitrite Urine Bilirubin Urine Urobilinogen Ur Leukocyte Esterase Ur Microscopic Review Urine Culture Comments Nasal Adenovirus (PCR) Nasal B. parapertussis DNA (PCR) Nasal Coronavir 229E PCR Nasal Coronavir HKU1 PCR Nasal Coronavir NL63 PCR Nasal Coronavir OC43 PCR Nasal Enterovir/Rhinovir PCR Nasal Influenza B PCR Nasal Influenza A PCR Nasal Parainfluen 1 PCR Nasal Parainfluen 2 PCR Nasal Parainfluen 3 PCR Nasal Parainfluen 4 PCR Nasal RSV (PCR) Nasal B.pertussis DNA PCR Nasal C.pneumoniae (PCR) Thaddeus Human Metapneumo PCR Nasal M.pneumoniae (PCR) Nasal SARS-CoV-2 (PCR) Acetaminophen 15 Ethyl Alcohol 69.8 06/30/21 06/30/21 06/30/21 03:00 03:15 05:40 WBC 5.7 RBC 4.10 L Hgb 12.8 Hct 38.9 MCV 94.9 MCH 31.2 H MCHC 32.9 RDW 12.9 Plt Count 165 MPV 8.4 Neut # (Auto) 4.2 Lymph # (Auto) 0.9 L [place] # (Auto) 0.6 Eos # (Auto) 0.0 Baso # (Auto) 0.0 Absolute Nucleated RBC 0.00 Nucleated RBC % 0.0 Sodium Potassium Chloride Carbon Dioxide Anion Gap BUN Creatinine Estimated GFR (MDRD) Glucose Calcium Total Bilirubin AST ALT Alkaline Phosphatase Troponin I High Sens Total Protein Albumin Globulin Albumin/Globulin Ratio Lipase Urine Color YELLOW Urine Clarity CLEAR Urine pH 7.5 Ur Specific [place] 1.015 Urine Protein NEGATIVE Urine Glucose (UA) 100 H Urine Ketones NEGATIVE Urine Occult Blood NEGATIVE Urine Nitrite NEGATIVE Urine Bilirubin NEGATIVE Urine Urobilinogen 1 (NORMAL) Ur Leukocyte Esterase NEGATIVE Ur Microscopic Review NOT INDICATED Urine Culture Comments NOT INDICATED Nasal Adenovirus (PCR) NOT DETECTED Nasal B. parapertussis DNA (PCR) NOT DETECTED Nasal Coronavir 229E PCR NOT DETECTED Nasal Coronavir HKU1 PCR NOT DETECTED Nasal Coronavir NL63 PCR NOT DETECTED Nasal Coronavir OC43 PCR NOT DETECTED Nasal Enterovir/Rhinovir PCR NOT DETECTED Nasal Influenza B PCR NOT DETECTED Nasal Influenza A PCR NOT DETECTED Nasal Parainfluen 1 PCR NOT DETECTED Nasal Parainfluen 2 PCR NOT DETECTED Nasal Parainfluen 3 PCR NOT DETECTED Nasal Parainfluen 4 PCR NOT DETECTED Nasal RSV (PCR) NOT DETECTED Nasal B.pertussis DNA PCR NOT DETECTED Nasal C.pneumoniae (PCR) NOT DETECTED Thaddeus Human Metapneumo PCR NOT DETECTED Nasal M.pneumoniae (PCR) NOT DETECTED Nasal SARS-CoV-2 (PCR) NOT DETECTED Acetaminophen Ethyl Alcohol EKG: Without acute ischemic sign. Assessment and plan: Active issues/diagnoses Acute pancreatitis/ lipase around 500 S/p cholecystectomy Alcohol use Questionable dilatation of common bile duct on previous ultrasound and previous CT however clinical course and laboratories not consistent with biliary obstruction Chronic abdominal pain/multiple ER visits Plan and orders: Admitted under observation with the goal to treat acute pancreatitis, which based on laboratories and lipase level, is not severe and to do further work-up with MRCP to rule out biliary obstruction. Bowel rest, IV hydration, antiemetics, proton pump inhibitor, pain control. Repeat liver function tests and chemistries in the morning. Started on CIWA scoring and as needed Ativan. Thiamine, folate, vitamin supplementation/IV hydration/banana bag. Abstinence from alcohol recommended, social work consult. DVT Prophylaxis. Disposition: If continues to improve, diet can be advanced to clear liquids today and If MRCP shows no concerning finding and laboratories remain stable then patient can likely discharge within 24 hours. If MRCP shows biliary obstruction or clinical course worsens then patient can be upgraded to inpatient. Attestation: I certify that the patient meets criteria for observation, based on the admission diagnosis, and the above assessment, findings and plan; she is expected to improve fairly quickly and be hospitalized for less than 48 hours. Time: 60 minutes
[2021-06-30 06:10] LABS: ALBUMIN 4.1 g/dL (3.2-5.5); ALBUMIN/GLOBULIN RATIO 1.4 (1.0-2.2); BILIRUBIN,TOTAL 1.4 mg/dL (0.2-1.0); CALCIUM 8.8 mg/dL (8.5-10.3); CREATININE 0.4 mg/dL (0.4-1.0); POTASSIUM 4.1 mmol/L (3.5-5.0); TOTAL PROTEIN 7.1 g/dL (6.7-8.2)
[2021-06-30 06:34] LABS: PARTIAL THROMBOPLASTIN TIME 27.8 secs (24.9-33.3)
[2021-06-30 06:38] LABS: INR 1.1 (0.8-1.2); PT - PROTHROMBIN TIME 12.1 secs (9.9-12.6)
[2021-06-30] MEDS: PANTOPRAZOLE 40 MG TABLET PO SCH (06:58)
[2021-06-30] MEDS: oxyCODONE 5 MG TABLET PO PRN ×2 (08:08→12:09)
[2021-06-30] MEDS: KETOROLAC 15 MG/ML VIAL IVP PRN ×2 (08:09→14:20)
[2021-06-30] MEDS: ENOXAPARIN 40 MG/0.4 ML SYRINGE SUBQ SCH (08:11)
[2021-06-30] MEDS ORDERED: THIAMINE 100 MG TABLET PO SCH (09:00)
[2021-06-30] MEDS ORDERED: PRENATAL VITAMIN TABLET PO SCH (09:00)
[2021-06-30] MEDS: SODIUM CHLORIDE FLUSH 0.9% 10 ML SYRINGE IVP SCH ×2 (09:53→17:57)
--- NOTE | 2021-06-30 10:47 | ED Physician Documentation ---
PD HPI ABD PAIN - Stated complaint Stated Complaint: ABD PAIN S/P ETOH, CIRRHOSIS - Chief complaint Chief Complaint: Abd Pain - History obtained from History obtained from: Patient - History of Present Illness Timing - onset: Enter time (20:00), Today Timing - details: Abrupt onset Pain level max: 10 Pain level now: 10 Quality: Pain Location: Epigastric Improved by: Other (no ameliorating factors) Worsened by: Palpation Associated symptoms: Nausea, Vomiting. No: Fever, Diarrhea, Constipation Recently seen: Emergency Dept - Additional information Additional information: BIBA. Patient c/o severe epigastric pain that woke her from sleep tonight at approximately 8 PM. She has had recent [facility] ED visits for abdominal pain (02/01, 04/11, 05/03, and most recently was 06/24 (last week)). She says tonight's pain feels different in intensity and quality than previous visits. She says she has had episodic abdominal pains since cholecystectomy that was performed earlier this year. She admits to drinking wine today; she says this is the first time she has consumed alcohol in nearly a year. Review of Systems Constitutional: reports: Reviewed and negative Nose: reports: Reviewed and negative Throat: reports: Reviewed and negative Cardiac: reports: Reviewed and negative Respiratory: reports: Reviewed and negative GI: reports: Abdominal Pain, Nausea, Vomiting. denies: Abdominal Swelling, Constipation, Diarrhea, Hematemesis, Bloody / black stool : denies: Dysuria, Frequency Skin: reports: Reviewed and negative Musculoskeletal: reports: Reviewed and negative PD PAST MEDICAL HISTORY - Past Medical History Past Medical History: Yes Cardiovascular: None Respiratory: None Neuro: None Endocrine/Autoimmune: None GI: GERD, Hepatitis, Cirrhosis, Other CELL COVERER: None : Kidney stones HEENT: None Psych: Bipolar disorder, Depression, Anxiety Musculoskeletal: None Derm: None - Past Surgical History Past Surgical History: Yes General: 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 /CELL COVERER: Hysterectomy, section - Present Medications Home Medications: Ambulatory Orders Medication Instructions Recorded Confirmed Estrogens, Conjugated Cream 30 gm VG PRN PRN 12/07/17 06/29/21 [Premarin Cream] Famotidine [Pepcid] 20 mg PO BID #20 tablet 06/24/21 06/29/21 HYDROcod/ACETAM 5/325 [[place] 5/325] 1 ea PO Q6H PRN #12 tablet 06/24/21 06/29/21 Ondansetron Odt [Zofran] 4 mg TL Q6H PRN #15 tablet 06/24/21 06/29/21 - Allergies Allergies/Adverse Reactions: Allergies Allergy/AdvReac Type Severity Reaction Status Date / Time Sulfa (Sulfonamide Allergy Intermediate Rash Verified 06/24/21 05:40 Antibiotics) - Social History Does the pt smoke?: No Smoking Status: Former smoker Does the pt drink ETOH?: Yes Does the pt have substance abuse?: Yes - Immunizations Immunizations are current?: Yes - POLST Patient has POLST: No PD ED PE NORMAL - Vitals Vital signs reviewed: Yes - General General: Alert and oriented X 3, Well developed/nourished, Other (appears to be in obvious moderate painful distress) - HEENT HEENT: Moist mucous membranes - Neck Neck: Supple, no meningeal sign - Cardiac Cardiac: RRR, No murmur - Respiratory Respiratory: No respiratory distress, Clear bilaterally - Abdomen Abdomen: Soft, Non distended, Other (TTP across upper abdomen, predominantly epigastrium; no rebound or guarding) - Back Back: No CVA TTP - Derm Derm: Normal color, Warm and dry - Extremities Extremities: No edema Results - Vitals Vitals: Vital Signs - 24 hr 06/29/21 06/30/21 06/30/21 23:07 01:00 02:41 Temperature 37.8 C 36.2 C L Heart Rate 63 105 H 96 Respiratory 20 14 17 Rate Blood Pressure 153/78 H 132/66 H 142/83 H O2 Saturation 100 95 97 Oxygen O2 Source Room air - Labs Labs: Laboratory Tests 06/30/21 06/30/21 06/30/21 00:05 00:17 00:17 WBC 8.2 RBC 4.39 Hgb 13.9 Hct 41.4 MCV 94.3 MCH 31.7 H MCHC 33.6 RDW 13.0 Plt Count 183 MPV 8.7 Neut # (Auto) 5.7 Lymph # (Auto) 1.3 L [place] # (Auto) 1.0 Eos # (Auto) 0.1 Baso # (Auto) 0.0 Absolute Nucleated RBC 0.00 Nucleated RBC % 0.0 Sodium 138 Potassium 3.5 Chloride 105 Carbon Dioxide 20 L Anion Gap 13.0 BUN 7 Creatinine 0.5 Estimated GFR (MDRD) 126 Glucose 137 H Calcium 8.9 Total Bilirubin 1.1 H AST 276 H ALT 85 H Alkaline Phosphatase 83 Troponin I High Sens 2.9 Total Protein 7.3 Albumin 4.0 Globulin 3.3 Albumin/Globulin Ratio 1.2 Lipase 550 H Urine Color Urine Clarity Urine pH Ur Specific [employer] Urine Protein Urine Glucose (UA) Urine Ketones Urine Occult Blood Urine Nitrite Urine Bilirubin Urine Urobilinogen Ur Leukocyte Esterase Ur Microscopic Review Urine Culture Comments Nasal Adenovirus (PCR) Nasal B. parapertussis DNA (PCR) Nasal Coronavir 229E PCR Nasal Coronavir HKU1 PCR Nasal Coronavir NL63 PCR Nasal Coronavir OC43 PCR Nasal Enterovir/Rhinovir PCR Nasal Influenza B PCR Nasal Influenza A PCR Nasal Parainfluen 1 PCR Nasal Parainfluen 2 PCR Nasal Parainfluen 3 PCR Nasal Parainfluen 4 PCR Nasal RSV (PCR) Nasal B.pertussis DNA PCR Nasal C.pneumoniae (PCR) [place] Human Metapneumo PCR Nasal M.pneumoniae (PCR) Nasal SARS-CoV-2 (PCR) Acetaminophen 15 Ethyl Alcohol 69.8 06/30/21 06/30/21 03:00 03:15 WBC RBC Hgb Hct MCV MCH MCHC RDW Plt Count MPV Neut # (Auto) Lymph # (Auto) [place] # (Auto) Eos # (Auto) Baso # (Auto) Absolute Nucleated RBC Nucleated RBC % Sodium Potassium Chloride Carbon Dioxide Anion Gap BUN Creatinine Estimated GFR (MDRD) Glucose Calcium Total Bilirubin AST ALT Alkaline Phosphatase Troponin I High Sens Total Protein Albumin Globulin Albumin/Globulin Ratio Lipase Urine Color YELLOW Urine Clarity CLEAR Urine pH 7.5 Ur Specific [employer] 1.015 Urine Protein NEGATIVE Urine Glucose (UA) 100 H Urine Ketones NEGATIVE Urine Occult Blood NEGATIVE Urine Nitrite NEGATIVE Urine Bilirubin NEGATIVE Urine Urobilinogen 1 (NORMAL) Ur Leukocyte Esterase NEGATIVE Ur Microscopic Review NOT INDICATED Urine Culture Comments NOT INDICATED Nasal Adenovirus (PCR) NOT DETECTED Nasal B. parapertussis DNA (PCR) NOT DETECTED Nasal Coronavir 229E PCR NOT DETECTED Nasal Coronavir HKU1 PCR NOT DETECTED Nasal Coronavir NL63 PCR NOT DETECTED Nasal Coronavir OC43 PCR NOT DETECTED Nasal Enterovir/Rhinovir PCR NOT DETECTED Nasal Influenza B PCR NOT DETECTED Nasal Influenza A PCR NOT DETECTED Nasal Parainfluen 1 PCR NOT DETECTED Nasal Parainfluen 2 PCR NOT DETECTED Nasal Parainfluen 3 PCR NOT DETECTED Nasal Parainfluen 4 PCR NOT DETECTED Nasal RSV (PCR) NOT DETECTED Nasal B.pertussis DNA PCR NOT DETECTED Nasal C.pneumoniae (PCR) NOT DETECTED Th[place] Human Metapneumo PCR NOT DETECTED Nasal M.pneumoniae (PCR) NOT DETECTED Nasal SARS-CoV-2 (PCR) NOT DETECTED Acetaminophen Ethyl Alcohol PD MEDICAL DECISION MAKING - ED course Complexity details: reviewed old records, reviewed results, re-evaluated patient, considered differential, d/w patient ED course: patient had w/u on last week's ED visit that included CT A/P; there were no diagnostic results at that time. Tonight, she has lipase of 550, with all previous results of this test on [facility] having been normal. She is given droperidol and dilaudid initially (I offered dilaudid as she appears to be in obvious significant discomfort, and she asks for a low dose as this often causes her to be nauseas). I reevaluated her after tests resulted and she reports slight improvement in her symptoms, she still appears to be in significant discomfort. I discussed results with her and the elevated lipase s/o pancreatitis. After further discussion, plan is to redose the dilaudid at higher dose (1mg) and give phenergan IV for ongoing nausea, and admit for inpatient treatment. D/W Dr. Naylor who accepts admission to [facility] Departure - Departure Disposition: ED Place in Observation Clinical Impression: Pancreatitis Qualifiers: Chronicity: acute Pancreatitis type: unspecified pancreatitis type Acute pancreatitis complication: unspecified Qualified Code(s): K85.90 - Acute pancreatitis without necrosis or infection, unspecified Condition: Stable Discharge Date/Time: 06/30/21 04:06
--- NOTE | 2021-06-30 14:01 | PHARMACY PROGRESS NOTE ---
- Best Possible Medication History Admit Date and Time: 06/30/21 0323 Processed by: Pharmacy Medication History completed: Yes Patient Interview: Completed Secondary Source(s): Insurance records Patient interviewed by registered pharmacy technician. As the person ultimately responsible for medication therapy, providers are able to order a medication from an existing home medication list in [facility] via the "Reconcile Routine" prior to Confirmation of that medication by learning support services director. Such practice is discouraged except when the physician, in their clinical judgment, deems that a medical need exists for a medication without regard to previous use.
--- NOTE | 2021-06-30 16:36 | MRI Report ---
PROCEDURE: MRCP W/O INDICATIONS: pls eval for CBD dilatation CONTRAST: None TECHNIQUE: Coronal ultra fast SE through the abdomen, axial 2-D spoiled GE in- and [id number], and breath-hold T2 FSE with fat saturation through the biliary system and pancreas. Oblique coronal and axial thin- slice ultra fast SE, radial thick-slab ultra fast SE centered on the extrahepatic bile ducts. COMPARISON: CT 06/24/2021 and ultrasound 04/11/2021 FINDINGS: Image quality: Excellent. Pancreas and biliary system: There is mild central intrahepatic biliary dilatation and prominent comm on hepatic duct dilatation measuring 15 mm and common bile duct dilatation measuring 14 mm. There is flow artifact centrally at the distal common duct, but no convincing distal ductal filling defect. Th e pancreatic duct is dilated measuring up to 5 mm and demonstrates dual drainage morphology. The duct tapers throughout the pancreatic tail. There are no pancreatic ductal stones or visible strictures. The gallbladder surgically absent. Other solid organs: Liver and spleen are normal in size. No adrenal nodules. Both kidneys are norm al in size, without hydronephrosis. Nodes and vessels: No retroperitoneal or mesenteric adenopathy by size criteria. Aorta and inferior vena cava are normal in size. Bowel and peritoneum: Unenhanced bowel loops are normal in caliber. No free fluid. Lung bases: No basal pleural effusions. Heart size is normal. Bones and soft tissues: No ventral hernias. Thoracolumbar scoliosis. Bone marrow is of normal overal l signal. IMPRESSION: 1. Extrahepatic biliary and pancreatic ductal dilatation without visible retained stone. There may be ampullary edema or stricture. If LFTs are abnormal, consider ERCP with sphincterotomy. 2. Postcholecystectomy. Reviewed by: Renata Yanez MD on 06/30/2021 4:35 PM PDT Approved by: Renata Yanez MD on 06/30/2021 4:35 PM PDT Station ID: [id number]
[2021-06-30] MEDS: SODIUM CHLORIDE 0.9% 1,000 ML IV SCH ×2 (17:56→23:47)
[2021-07-01] MEDS: SODIUM CHLORIDE FLUSH 0.9% 10 ML SYRINGE IVP SCH ×3 (04:33→16:39)
[2021-07-01] MEDS: SODIUM CHLORIDE 0.9% 1,000 ML IV SCH ×4 (05:04→22:44)
[2021-07-01 06:38] LABS: ALBUMIN 3.6 g/dL (3.2-5.5); ALBUMIN/GLOBULIN RATIO 1.4 (1.0-2.2); BILIRUBIN,DIRECT 0.2 mg/dL (0.1-0.5); BILIRUBIN,TOTAL 1.5 mg/dL (0.2-1.0); CALCIUM 8.5 mg/dL (8.5-10.3); CREATININE 0.6 mg/dL (0.4-1.0); POTASSIUM 3.9 mmol/L (3.5-5.0); TOTAL PROTEIN 6.1 g/dL (6.7-8.2)
[2021-07-01 06:45] LABS: HCT - HEMATOCRIT 36.5 % (37.0-47.0); HGB - HEMOGLOBIN 11.8 g/dL (12.0-16.0); MEAN CORPUSCULAR HEMOGLOBIN 31.6 pg (27.0-31.0); MEAN CORPUSCULAR HGB CONC 32.3 g/dL (32.0-36.0); MEAN CORPUSCULAR VOLUME 97.6 fL (81.0-99.0); MEAN PLATELET VOLUME 8.7 fL (7.9-10.8); NEUTROPHILS # (AUTO) 2.7 10^3/uL (1.5-6.6); NEUTROPHILS % (AUTO) 60.9 %; RED BLOOD COUNT 3.74 10^6/uL (4.20-5.40); RED CELL DISTRIBUTION WIDTH 13.1 % (12.0-15.0); WHITE BLOOD COUNT 4.5 x10^3/uL (4.8-10.8)
[2021-07-01] MEDS: PANTOPRAZOLE 40 MG TABLET PO SCH (06:52)
[2021-07-01] MEDS: KETOROLAC 15 MG/ML VIAL IVP PRN ×3 (06:52→20:19)
[2021-07-01] MEDS ORDERED: SODIUM CHLORIDE 0.9% 1,000 ML IV SCH (07:56)
[2021-07-01] MEDS: PRENATAL VITAMIN TABLET PO SCH (08:56)
[2021-07-01] MEDS: oxyCODONE 5 MG TABLET PO PRN ×3 (08:56→20:19)
[2021-07-01] MEDS: THIAMINE 100 MG TABLET PO SCH (08:56)
[2021-07-01] MEDS: ENOXAPARIN 40 MG/0.4 ML SYRINGE SUBQ SCH (09:00)
--- NOTE | 2021-07-01 13:23 | PROVIDER PROGRESS NOTE ---
Assessment/Plan - Problem List (1) Pancreatitis Qualifiers: Chronicity: acute Pancreatitis type: unspecified pancreatitis type Acute pancreatitis complication: unspecified Qualified Code(s): K85.90 - Acute pancreatitis without necrosis or infection, unspecified Assessment/Plan: Patient report her abdominal pain is much improved, Lipase is 27 in normal range. pt present alcoholic Pancreatitis. we will start with clear diet, continue pain control, IVF with NS, continue lab monitor. Emphasized patient avoid alcohol intake. pt totally agree to quit alcohol intake. advance her diet as tolerated (2) Alcohol abuse Assessment/Plan: Patient has a history of alcohol abuse. She reported she stopped alcohol intake but she take alcohol again prior to admission. Patient had a banana bag, now switch to and vitamin B1 by PO. Patient promised to quit alcohol intake at this time. (3) Elevated liver enzymes Assessment/Plan: Patient's elevated liver enzyme is significantly improved and the reduced. Patient also reported her abdominal pain significantly improved. common bile duct Was dilated in the previous CT scan. MRCP show Extrahepatic biliary and pancreatic duct dilation without visible retained stone, There may be Ampullary edema or stricture. Patient liver enzymes is significantly reduced the improved, patient's abdominal pain is significantly improved At this time. Patient may follow-up GI as outpatient to continue manage or have ERCP as needed. 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 Patient may follow-up GI as outpatient to continue management. - Current Meds Current Meds: Current Medications Generic Name Dose Route Start Last Admin Trade Name Freq PRN Reason Stop Dose Admin Enoxaparin Sodium 40 mg 06/30/21 09:00 07/01/21 09:00 Enoxaparin 40 Mg/0.4 Ml Syringe SUBQ 40 mg DAILY JERONIMO Administration Sodium Chloride 1,000 mls @ 150 mls/hr 07/01/21 08:01 07/01/21 08:59 Normal Saline 0.9% IV 150 mls/hr .Q6H40M JERONIMO Administration Ketorolac Tromethamine 15 mg 06/30/21 04:36 07/01/21 12:57 Ketorolac 15 Mg/Ml Vial IVP 07/05/21 04:35 15 mg Q6HR PRN Administration PAIN Morphine Sulfate 2 mg 06/30/21 03:27 06/30/21 17:51 Morphine 2 Mg/Ml Carpuject IVP 2 mg Q2HR PRN Administration PAIN Oxycodone HCl 5 mg 06/30/21 03:23 07/01/21 08:56 Oxycodone 5 Mg Tablet PO 5 mg Q4HR PRN Administration Pain 5 to 7 Pantoprazole Sodium 40 mg 06/30/21 07:00 07/01/21 06:52 Pantoprazole 40 Mg Tablet PO 40 mg QDAC JERONIMO Administration Multivit/Folic Acid/Iron 1 tab 07/01/21 08:00 07/01/21 08:56 Vitamin Tablet PO 1 tab DAILYWM JERONIMO Administration Sodium Chloride 10 ml 06/30/21 03:23 06/30/21 17:52 Sodium Chloride Flush 0.9% 10 Ml Syringe IVP 10 ml PRN PRN Administration NEEDED PER PROVIDER ORDERS Sodium Chloride 10 ml 06/30/21 09:00 07/01/21 09:00 Sodium Chloride Flush 0.9% 10 Ml Syringe IVP Not Given 0100,0900,1700 JERONIMO Thiamine HCl 100 mg 07/01/21 09:00 07/01/21 08:56 Thiamine 100 Mg Tablet PO 100 mg DAILY JERONIMO Administration - Lab Result Fish Bone Diagrams: 07/01/21 05:48 07/01/21 05:48 - Additional Planning My Orders: My Active Orders 07/01/21 Breakfast Clear Liquid Diet [DIET] 07/01/21 08:00 Vitamin [Trinatal Rx 1] 1 tab PO DAILYWM 07/01/21 08:01 Sodium Chloride 0.9% [Normal Saline 0.9%] 1,000 ml IV 150 mls/hr 07/01/21 09:00 Thiamine [Vitamin B-1] 100 mg PO DAILY 07/02/21 05:00 CMP [COMPREHENSIVE METABOLIC PANEL] [CHEM] DAILYLAB 07/02/21 09:00 CBC [MACBC (HEMOGRAM W/ANC)] [HEME] DAILY 07/03/21 05:00 CMP [COMPREHENSIVE METABOLIC PANEL] [CHEM] DAILYLAB 07/03/21 09:00 CBC [MACBC (HEMOGRAM W/ANC)] [HEME] DAILY 07/04/21 05:00 CMP [COMPREHENSIVE METABOLIC PANEL] [CHEM] DAILYLAB 07/04/21 09:00 CBC [MACBC (HEMOGRAM W/ANC)] [HEME] DAILY 07/05/21 05:00 CMP [COMPREHENSIVE METABOLIC PANEL] [CHEM] DAILYLAB 07/05/21 09:00 CBC [MACBC (HEMOGRAM W/ANC)] [HEME] DAILY Subjective - Subjective Patient Reports: Feeling Better Objective Vital Signs: Vital Signs - 24 hr 06/30/21 06/30/21 06/30/21 15:45 20:07 20:08 Temperature 36.6 C 36.8 C Heart Rate [ 52 L 55 L 53 L Brachial] Respiratory 16 16 Rate Blood Pressure 137/67 H 132/90 H 144/72 H [Right Brachial artery] O2 Saturation 97 96 06/30/21 07/01/21 07/01/21 23:00 05:00 09:00 Temperature 36.7 C 37.0 C 36.6 C Heart Rate [ 54 L 55 L 50 L Brachial] Respiratory 16 16 20 Rate Blood Pressure 136/73 H 137/70 H 162/66 H [Right Brachial artery] O2 Saturation 94 95 98 07/01/21 12:54 Temperature 36.4 C L Heart Rate [ 61 Brachial] Respiratory 17 Rate Blood Pressure 147/74 H [Right Brachial artery] O2 Saturation 96 Oxygen O2 Source Room air I&O (Last 24 Hrs): Intake and Output Totals x24h 06/29/21 06/30/21 07/01/21 23:59 23:59 23:59 Intake Total 3438.7 2089.583 Output Total 0 Balance 3438.7 2089.583 General: Alert, Oriented x3, Cooperative, No acute distress HEENT: Atraumatic, PERRLA Neck: Supple Lymphatic: no adenopathy Neuro: Alert, Non Focal, Oriented Times 3 Cardiovascular: Regular rate, Normal S1, Normal S2 Respiratory: Chest non-tender, No respiratory distress, Breath sounds nml Abdomen: Normal bowel sounds, Soft Extremities: Normal pulses - Results Results: Laboratory Results WBC 4.5 x10^3/uL (4.8-10.8) L 07/01/21 05:48 RBC 3.74 10^6/uL (4.20-5.40) L 07/01/21 05:48 Hgb 11.8 g/dL (12.0-16.0) L 07/01/21 05:48 Hct 36.5 % (37.0-47.0) L 07/01/21 05:48 MCV 97.6 fL (81.0-99.0) 07/01/21 05:48 MCH 31.6 pg (27.0-31.0) H 07/01/21 05:48 MCHC 32.3 g/dL (32.0-36.0) 07/01/21 05:48 RDW 13.1 % (12.0-15.0) 07/01/21 05:48 Plt Count 142 10^3/uL (130-450) 07/01/21 05:48 MPV 8.7 fL (7.9-10.8) 07/01/21 05:48 Neut # (Auto) 2.7 10^3/uL (1.5-6.6) 07/01/21 05:48 Lymph # (Auto) 0.9 10^3/uL (1.5-3.5) L 06/30/21 05:40 Ray # (Auto) 0.6 10^3/uL (0.0-1.0) 06/30/21 05:40 Eos # (Auto) 0.0 10^3/uL (0.0-0.7) 06/30/21 05:40 Baso # (Auto) 0.0 10^3/uL (0.0-0.1) 06/30/21 05:40 Absolute Nucleated RBC 0.00 x10^3/uL 06/30/21 05:40 Nucleated RBC % 0.0 /100WBC 06/30/21 05:40 PT 12.1 secs (9.9-12.6) 06/30/21 05:40 INR 1.1 (0.8-1.2) 06/30/21 05:40 APTT 27.8 secs (24.9-33.3) 06/30/21 05:40 Sodium 139 mmol/L (135-145) 07/01/21 05:48 Potassium 3.9 mmol/L (3.5-5.0) 07/01/21 05:48 Chloride 107 mmol/L (101-111) 07/01/21 05:48 Carbon Dioxide 23 mmol/L (21-32) 07/01/21 05:48 Anion Gap 9.0 (6-13) 07/01/21 05:48 BUN 8 mg/dL (6-20) 07/01/21 05:48 Creatinine 0.6 mg/dL (0.4-1.0) 07/01/21 05:48 Estimated GFR (MDRD) 102 (>89) 07/01/21 05:48 Glucose 80 mg/dL (70-100) 07/01/21 05:48 Calcium 8.5 mg/dL (8.5-10.3) 07/01/21 05:48 Phosphorus 3.0 mg/dL (2.5-4.6) 07/01/21 05:48 Magnesium 2.0 mg/dL (1.7-2.8) 07/01/21 05:48 Total Bilirubin 1.5 mg/dL (0.2-1.0) H 07/01/21 05:48 Direct Bilirubin 0.2 mg/dL (0.1-0.5) 07/01/21 05:48 AST 89 IU/L (10-42) H 07/01/21 05:48 ALT 91 IU/L (10-60) H 07/01/21 05:48 Alkaline Phosphatase 93 IU/L (42-121) 07/01/21 05:48 Troponin I High Sens 2.9 ng/L (2.3-14.8) 06/30/21 00:17 Total Protein 6.1 g/dL (6.7-8.2) L 07/01/21 05:48 Albumin 3.6 g/dL (3.2-5.5) 07/01/21 05:48 Globulin 2.5 g/dL (2.1-4.2) 07/01/21 05:48 Albumin/Globulin Ratio 1.4 (1.0-2.2) 07/01/21 05:48 Lipase 27 U/L (22-51) 07/01/21 05:48 Urine Color YELLOW 06/30/21 03:15 Urine Clarity CLEAR (CLEAR) 06/30/21 03:15 Urine pH 7.5 PH (5.0-7.5) 06/30/21 03:15 Ur Specific [place] 1.015 (1.002-1.030) 06/30/21 03:15 Urine Protein NEGATIVE mg/dL (NEGATIVE) 06/30/21 03:15 Urine Glucose (UA) 100 mg/dL (NEGATIVE) H 06/30/21 03:15 Urine Ketones NEGATIVE mg/dL (NEGATIVE) 06/30/21 03:15 Urine Occult Blood NEGATIVE (NEGATIVE) 06/30/21 03:15 Urine Nitrite NEGATIVE (NEGATIVE) 06/30/21 03:15 Urine Bilirubin NEGATIVE (NEGATIVE) 06/30/21 03:15 Urine Urobilinogen 1 (NORMAL) E.U./dL (NORMAL) 06/30/21 03:15 Ur Leukocyte Esterase NEGATIVE (NEGATIVE) 06/30/21 03:15 Ur Microscopic Review NOT INDICATED 06/30/21 03:15 Urine Culture Comments NOT INDICATED 06/30/21 03:15 Nasal Adenovirus (PCR) NOT DETECTED 06/30/21 03:00 Nasal B. parapertussis DNA (PCR) NOT DETECTED 06/30/21 03:00 Nasal Coronavir 229E PCR NOT DETECTED 06/30/21 03:00 Nasal Coronavir HKU1 PCR NOT DETECTED 06/30/21 03:00 Nasal Coronavir NL63 PCR NOT DETECTED 06/30/21 03:00 Nasal Coronavir OC43 PCR NOT DETECTED 06/30/21 03:00 Nasal Enterovir/Rhinovir PCR NOT DETECTED 06/30/21 03:00 Nasal Influenza B PCR NOT DETECTED 06/30/21 03:00 Nasal Influenza A PCR NOT DETECTED 06/30/21 03:00 Nasal Parainfluen 1 PCR NOT DETECTED 06/30/21 03:00 Nasal Parainfluen 2 PCR NOT DETECTED 06/30/21 03:00 Nasal Parainfluen 3 PCR NOT DETECTED 06/30/21 03:00 Nasal Parainfluen 4 PCR NOT DETECTED 06/30/21 03:00 Nasal RSV (PCR) NOT DETECTED 06/30/21 03:00 Nasal B.pertussis DNA PCR NOT DETECTED 06/30/21 03:00 Nasal C.pneumoniae (PCR) NOT DETECTED 06/30/21 03:00 Thaddeus Human Metapneumo PCR NOT DETECTED 06/30/21 03:00 Nasal M.pneumoniae (PCR) NOT DETECTED 06/30/21 03:00 Nasal SARS-CoV-2 (PCR) NOT DETECTED 06/30/21 03:00 Acetaminophen 15 ug/mL (10-30) 06/30/21 00:17 Ethyl Alcohol 69.8 mg/dL 06/30/21 00:17 - Procedures Procedures: Procedures EXCISION OF STOMACH, PYLORUS, ENDO, DIAGN (12/07/17) RESECTION OF GALLBLADDER, PERCUTANEOUS ENDOSCOPIC APPROACH (11/18/20) ABX Reporting Has patient been on IV antibiotics over the past 48 hours?: No Current Medications - Current Medications Current Medications: Active Medications Bisacodyl (Bisacodyl 10 Mg Supp) 10 mg OK DAILY PRN PRN Reason: Constipation Enoxaparin Sodium (Enoxaparin 40 Mg/0.4 Ml Syringe) 40 mg SUBQ DAILY [facility] Last Admin: 07/01/21 09:00 Dose: 40 mg Documented by: Sodium Chloride (Normal Saline 0.9%) 1,000 mls @ 150 mls/hr IV .Q6H40M [facility] Last Admin: 07/01/21 08:59 Dose: 150 mls/hr Documented by: Ketorolac Tromethamine (Ketorolac 15 Mg/Ml Vial) 15 mg IVP Q6HR PRN PRN Reason: PAIN Stop: 07/05/21 04:35 Last Admin: 07/01/21 12:57 Dose: 15 mg Documented by: Lorazepam (Lorazepam 2 Mg/Ml Vial) 1 mg IVP Q2H PRN PRN Reason: Anxiety Lorazepam (Lorazepam 1 Mg Tablet) 2 mg PO Q1H PRN; Protocol PRN Reason: CIWA > 8 Metoclopramide HCl (Metoclopramide 10 Mg/2 Ml Vial) 5 mg IVP Q6HR PRN PRN Reason: Nausea / Vomiting Morphine Sulfate (Morphine 2 Mg/Ml Carpuject) 2 mg IVP Q2HR PRN PRN Reason: PAIN Last Admin: 06/30/21 17:51 Dose: 2 mg Documented by: Ondansetron HCl (Ondansetron 4 Mg/2 Ml Vial) 4 mg IVP Q6HR PRN PRN Reason: Nausea / Vomiting Oxycodone HCl (Oxycodone 5 Mg Tablet) 5 mg PO Q4HR PRN PRN Reason: Pain 5 to 7 Last Admin: 07/01/21 08:56 Dose: 5 mg Documented by: Pantoprazole Sodium (Pantoprazole 40 Mg Tablet) 40 mg PO QDAC [facility] Last Admin: 07/01/21 06:52 Dose: 40 mg Documented by: Multivit/Folic Acid/Iron ( Vitamin Tablet) 1 tab PO DAILYWM [facility] Last Admin: 07/01/21 08:56 Dose: 1 tab Documented by: Prochlorperazine Edisylate (Prochlorperazine 10 Mg/2 Ml Vial) 10 mg IVP Q6HR PRN PRN Reason: Nausea / Vomiting Sodium Chloride (Sodium Chloride Flush 0.9% 10 Ml Syringe) 10 ml IVP PRN PRN PRN Reason: NEEDED PER PROVIDER ORDERS Last Admin: 06/30/21 17:52 Dose: 10 ml Documented by: Sodium Chloride (Sodium Chloride Flush 0.9% 10 Ml Syringe) 10 ml IVP 0100,0900,1700 [facility] Last Admin: 07/01/21 09:00 Dose: Not Given Documented by: Thiamine HCl (Thiamine 100 Mg Tablet) 100 mg PO DAILY [facility] Last Admin: 07/01/21 08:56 Dose: 100 mg Documented by: Estrogens, Conjugated Cream [Premarin Cream] 30 gm VG MOTU 12/07/17 Famotidine [Pepcid] 20 mg PO BID PRN 06/30/21 HYDROcod/ACETAM 5/325 [[place] 5/325] 1 tab PO Q6H PRN 06/30/21
[2021-07-02] MEDS: oxyCODONE 5 MG TABLET PO PRN (01:07)
[2021-07-02] MEDS: SODIUM CHLORIDE FLUSH 0.9% 10 ML SYRINGE IVP SCH ×2 (01:08→09:06)
[2021-07-02] MEDS: PANTOPRAZOLE 40 MG TABLET PO SCH (05:31)
[2021-07-02] MEDS: SODIUM CHLORIDE 0.9% 1,000 ML IV SCH ×2 (05:31→10:45)
[2021-07-02 06:14] LABS: POTASSIUM 3.6 mmol/L (3.5-5.0)
[2021-07-02 06:15] LABS: ALBUMIN 3.5 g/dL (3.2-5.5); ALBUMIN/GLOBULIN RATIO 1.3 (1.0-2.2); BILIRUBIN,TOTAL 0.9 mg/dL (0.2-1.0); CALCIUM 8.7 mg/dL (8.5-10.3); CREATININE 0.6 mg/dL (0.4-1.0); TOTAL PROTEIN 6.2 g/dL (6.7-8.2)
[2021-07-02 07:44] LABS: HCT - HEMATOCRIT 34.8 % (37.0-47.0); HGB - HEMOGLOBIN 11.8 g/dL (12.0-16.0); MEAN CORPUSCULAR HEMOGLOBIN 32.7 pg (27.0-31.0); MEAN CORPUSCULAR HGB CONC 33.9 g/dL (32.0-36.0); MEAN CORPUSCULAR VOLUME 96.4 fL (81.0-99.0); MEAN PLATELET VOLUME 9.1 fL (7.9-10.8); NEUTROPHILS # (AUTO) 1.5 10^3/uL (1.5-6.6); NEUTROPHILS % (AUTO) 45.3 %; RED BLOOD COUNT 3.61 10^6/uL (4.20-5.40); RED CELL DISTRIBUTION WIDTH 12.8 % (12.0-15.0); WHITE BLOOD COUNT 3.3 x10^3/uL (4.8-10.8)
[2021-07-02 07:45] VITALS: BP 154/74
[2021-07-02] MEDS: THIAMINE 100 MG TABLET PO SCH (09:05)
[2021-07-02] MEDS: PRENATAL VITAMIN TABLET PO SCH (09:05)
[2021-07-02] MEDS: ENOXAPARIN 40 MG/0.4 ML SYRINGE SUBQ SCH (09:06)
--- NOTE | 2021-07-02 10:32 | Discharge Plan ---
Discharge Plan Problem Reviewed?: Yes Disposition: Home, Self Care Condition: Stable Prescriptions: Pnv No.95/Ferrous Fum/Folic AC [ Tablet] 1 each PO DAILY #30 tablet Thiamine [Vitamin B-1] 100 mg PO DAILY #30 tablet Diet: Regular Activity Restrictions: Activity as Tolerated Shower Restrictions: No (fall precaution) Instruction Topics: Abdominal Pain, Pancreatitis, Alcoholism Get Help, Addiction Alcohol Health Concerns: alcohol abuse with pancreatitis, pancreatic ductal dilation Plan of Treatment: strongly advise you quit alcohol intake. MRCP image study show you have extrahepatic biliary and pancreatic ductal dilation, you may followup with GI doctor as out-pt to have ERCP as needed. Your liver enzyme is significantly improved and closed to normal arrange. CT image study on Your last admission show nodules at right lung, you may have chest CT study in the next 3 months Care Goals: Stabilization, improvement, and healing of your acute pancreatitis Assessment: Discussed the care plan with you, answered your questions, you understood Additional Instructions or Follow Up instructions: You may follow-up with your PCP in 1 to 2 weeks, follow-up GI physician as outpatient. Should your symptoms Return or worsen, you may present to ER or call 911 for help No Smoking: If you smoke, Please STOP! Call for help. Follow-up with: ROSA HONG MD [Primary Care Provider] -
--- NOTE | 2021-07-02 11:13 | DISCHARGE SUMMARY ---
Discharge Summary Admit Date: 06/30/21 Discharge Date: 07/02/21 Discharging Provider: Vinicius Nunn Primary Care Provider: Jacquie Jo Condition at Discharge: Stable Discharge Disposition: 01 Home, Self Care Discharge Facility Name: home - DIAGNOSES Discharge Diagnoses with Status of Each Condition: (1) Pancreatitis resolved. Lipase is down to the normal arrange. pt tolerate diet, denies abdominal pain. Strongly advised patient quit alcohol intake, patient reported she will quit alcohol. Social work help patient to find resource for quit alcohol (2) Alcohol abuse Strongly advised patient quit alcohol intake, patient reported she will quit alcohol. Social work help patient to find resource for quit alcohol. pt is prescribed and Vitamin B1. (3) Elevated liver enzymes Patient's liver enzyme is close to normal. pt tolerate diet, denies abdominal pain. MRCP show Extrahepatic biliary and pancreatic duct dilation without visible retained stone, There may be Ampullary edema or stricture. Discussed the test result with pt. Patient may follow-up GI as outpatient to continue manage or have ERCP as needed. (4) Chronic abdominal pain pt denies abdominal pain now, Patient may follow-up GI as outpatient to continue manage or have ERCP as needed. - HPI History of Present Illness: refer from Dr. Naylor's HPI on 06/30/21 The patient is a 61-year-old white female with past medical history of alcohol use, gastroesophageal reflux who underwent cholecystectomy in November 2020. Patient states that she has been abstinent from alcohol for over a year. Following cholecystectomy she developed episodic but recurrent abdominal pain and since then she had several ER visits. She was seen in March at which time she had an ultrasound showing possible biliary sludge and subsequently she was seen on June 24, evaluated for abdominal pain had CT scan of the abdomen which showed a questionable biliary dilatation. The clinical course and liver function tests however were not consistent with biliary obstruction therefore no further work-up was done. In the past patient had normal lipase. Her is ER visits usually suggested benign etiology/probable functional abdominal pain, after hydration and symptom control she was always able to discharge home. Overnight on June 29 to June 30 the patient presented to the ER complaining of somewhat sudden onset of epigastric abdominal pain which started at 8 PM on June 29, radiated around the trunk in a bandlike fashion. The intensity was 11 out of 10. It was a constant nonresolving pain associated with nausea however no vomiting. There was no fever. Regarding bowel movements, at last ER visit the patient was given oxycodone and she became constipated after taking the medication. She admitted to drinking a bottle of red wine last night however other than that she did not report recent alcohol use. Upon presentation to the ER the patient had elevated temperature, was initially tachycardic however improved on IV hydration and pain control. She tolerated oral liquid intake and was nauseous but did not vomit. Lipase was elevated at around 500. Blood alcohol level was elevated as well. Bilirubin was not elevat ed. AST was elevated but alk phos was normal. ALT was slightly elevated. As the patient did well during the ER stay and improved on therapies outpatient treatment was entertained however she continued with nausea and continued to require pain medication therefore admission was requested. Pertinent results of the ER work-up are listed below. - ALLERGIES Allergies/Adverse Reactions: Allergies Allergy/AdvReac Type Severity Reaction Status Date / Time Sulfa (Sulfonamide Allergy Intermediate Rash Verified 06/24/21 05:40 Antibiotics) - MEDICATIONS Home Medications: Ambulatory Orders Medication Instructions Recorded Confirmed Estrogens, Conjugated Cream 30 gm VG MOTU 12/07/17 06/30/21 [Premarin Cream] Ondansetron Odt [Zofran Odt] 4 mg TL Q6H PRN #15 tablet 06/24/21 06/30/21 Famotidine [Pepcid] 20 mg PO BID PRN 06/30/21 06/30/21 HYDROcod/ACETAM 5/325 [[place] 5/325] 1 tab PO Q6H PRN 06/30/21 06/30/21 Pnv No.95/Ferrous Fum/Folic AC 1 each PO DAILY #30 tablet 07/02/21 [ Tablet] Thiamine [Vitamin B-1] 100 mg PO DAILY #30 tablet 07/02/21 - PHYSICAL EXAM AT DISCHARGE General Appearance: positive: No acute distress, Alert. negative: Lethargic Eyes Bilateral: positive: Normal inspection, PERRL, No lid inflammation ENT: positive: ENT inspection nml, No signs of dehydration. negative: Purulent nasal drainage Neck: positive: Nml inspection, Trachea midline. negative: Thyromegaly, Tracheal deviation Respiratory: positive: Chest non-tender, No respiratory distress, Breath sounds nml. negative: Wheezes Cardiovascular: positive: Regular rate & rhythm, No murmur. negative: Tachycardia, Bradycardia, Systolic murmur, Diastolic murmur Peripheral Pulses: positive: 2+ Abdomen: positive: Non-tender, Nml bowel sounds, No distention. negative: T enderness Back: positive: Nml inspection Skin: positive: Color nml, Warm, Dry. negative: Cyanosis Extremities: positive: Non-tender, Full ROM, Nml appearance. negative: Calf tenderness Neurologic/Psychiatric: positive: Oriented x3, Motor nml, Sensation nml, Mood/affect nml. negative: Weakness, Sensory loss, Facial droop, Slurred/abnml speech, Depressed mood/affect - LABS Result Diagrams: 07/02/21 05:05 07/02/21 05:05 - FOLLOW UP Follow Up: strongly advise you quit alcohol intake. MRCP image study show you have extrahepatic biliary and pancreatic ductal dilation, you may followup with GI doctor as out-pt to have ERCP as needed. Your liver enzyme is significantly improved and closed to normal arrange. CT image study on Your last admission show nodules at right lung, you may have chest CT study in the next 3 months. You may follow-up with your PCP in 1 to 2 weeks, follow-up GI physician as outpatient. Should your symptoms Return or worsen, you may present to ER or call 911 for help - TIME SPENT Time Spent in Discharge (Minutes): 30
== END 2021-07-02 12:00 | disposition home or self-care (01) ==
LOC: EDUNIT# → SUPCPDRO 23:05 → ED 23:05 → MS2 06-30 03:23
PROVIDERS: ADMIT Internal Medicine; ATTEND Nurse Practitioner Gerontology
DX: K85.20 Alcohol induced acute pancreatitis without necrosis or infection (principal); F10.10 Alcohol abuse, uncomplicated; R74.8 Abnormal levels of other serum enzymes; K21.9 Gastro-esophageal reflux disease without esophagitis; Z90.49 Acquired absence of other specified parts of digestive tract; Z20.822 Contact with and (suspected) exposure to COVID-19
CPT/HCPCS: 0202U; 36415; 74181; 80053; 80076; 80307; 80320; 81003; 83690; 83735; 84100; 84484; 85025; 85027; 85610; 85730; 93005; 96361; 96365; 96366; 96367; 96372; 96375; 96376; 99284; 99285; A9270; G0378; J1170; J1650; J3411; J7040; 81001; 87086

== ENCOUNTER 2021-12-22 12:22 | Emergency (ER) | payer OTHER ==
[2021-12-22 12:53] LABS: BASOPHILS # (AUTO) 0.1 10^3/uL (0.0-0.1); BASOPHILS % (AUTO) 0.5 %; EOSINOPHILS # (AUTO) 0.1 10^3/uL (0.0-0.7); EOSINOPHILS % (AUTO) 0.7 %; HCT - HEMATOCRIT 45.5 % (37.0-47.0); HGB - HEMOGLOBIN 15.7 g/dL (12.0-16.0); LYMPHOCYTES # (AUTO) 1.9 10^3/uL (1.5-3.5); LYMPHOCYTES % (AUTO) 18.8 %; MEAN CORPUSCULAR HEMOGLOBIN 32.2 pg (27.0-31.0); MEAN CORPUSCULAR HGB CONC 34.5 g/dL (32.0-36.0); MEAN CORPUSCULAR VOLUME 93.2 fL (81.0-99.0); MEAN PLATELET VOLUME 8.7 fL (7.9-10.8); MONOCYTES # (AUTO) 0.5 10^3/uL (0.0-1.0); MONOCYTES % (AUTO) 4.8 %; NEUTROPHILS # (AUTO) 7.6 10^3/uL (1.5-6.6); NEUTROPHILS % (AUTO) 74.8 %; PLT - PLATELET COUNT 198 10^3/uL (130-450); RED BLOOD COUNT 4.88 10^6/uL (4.20-5.40); RED CELL DISTRIBUTION WIDTH 12.9 % (12.0-15.0); WHITE BLOOD COUNT 10.2 x10^3/uL (4.8-10.8)
--- NOTE | 2021-12-22 12:56 | ED Physician Documentation ---
History of Present Illness - Stated complaint Stated Complaint: NAUSEA/VOMITING - Chief complaint Chief Complaint: Abd Pain - History obtained from History obtained from: Patient - History of Present Illness Timing: Today Pain level max: 0 Pain level now: 0 - Additonal information Additional information: 61 year old female, history of liver cirrhosis due to alcoholism and has recurrent pancreatitis. Patient states that she has had epigastric/left upper quadrant pain as well as nausea and vomiting since last night. She states that she had recently been on amoxicillin for a dental extraction. Had been on oxycodone as well. Denies constipation or diarrhea. States that her last drink of alcohol was approximately 1 year ago. No urinary symptoms. Nothing makes the pain better or worse. She states she did have an EGD last year, but does not know the results. Review of Systems Ten Systems: 10 systems reviewed and negative Constitutional: denies: Fever, Chills Ears: denies: Ear pain Nose: denies: Rhinorrhea / runny nose, Congestion Throat: denies: Sore throat Cardiac: denies: Chest pain / pressure Respiratory: denies: Cough GI: reports: Abdominal Pain, Nausea, Vomiting. denies: Constipation, Diarrhea, Hematemesis, Bloody / black stool : denies: Dysuria, Frequency, Hesitancy Skin: denies: Rash Musculoskeletal: denies: Neck pain Neurologic: denies: Headache PD PAST MEDICAL HISTORY - Past Medical History Cardiovascular: None Respiratory: None Neuro: None Endocrine/Autoimmune: None GI: GERD, Hepatitis, Cirrhosis, Other MOLDER HELPER: None : Kidney stones HEENT: None Psych: Bipolar disorder, Depression, Anxiety Musculoskeletal: None Derm: None - Past Surgical History Past Surgical History: Yes General: 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 /MOLDER HELPER: Hysterectomy, section - Present Medications Home Medications: Ambulatory Orders Medication Instructions Recorded Confirmed Estrogens, Conjugated Cream 30 gm VG MOTU 12/07/17 06/30/21 [Premarin Cream] Ondansetron Odt [Zofran Odt] 4 mg TL Q6H PRN #15 tablet 06/24/21 06/30/21 Famotidine [Pepcid] 20 mg PO BID PRN 06/30/21 06/30/21 HYDROcod/ACETAM 5/325 [[place] 5/325] 1 tab PO Q6H PRN 06/30/21 06/30/21 Pnv No.95/Ferrous Fum/Folic AC 1 each PO DAILY #30 tablet 07/02/21 [ Tablet] Thiamine [Vitamin B-1] 100 mg PO DAILY #30 tablet 07/02/21 Esomeprazole Magnesium [Nexium] 40 mg PO DAILY #30 cap.sr 12/22/21 Ondansetron Odt [Zofran] 4 mg TL Q6H PRN #10 tablet 12/22/21 Oxycodone HCl/Acetaminophen 1 - 2 each PO Q6H PRN #14 tablet 12/22/21 [Percocet 5-325 mg Tablet] Promethazine [Phenergan] 25 mg PO Q6H PRN #10 tablet 12/22/21 Sucralfate [Carafate] 1 gm PO ACHS #60 tablet 12/22/21 - Allergies Allergies/Adverse Reactions: Allergies Allergy/AdvReac Type Severity Reaction Status Date / Time Sulfa (Sulfonamide Allergy Intermediate Rash Verified 12/22/21 12:36 Antibiotics) - Social History Does the pt smoke?: No Smoking Status: Former smoker Does the pt drink ETOH?: Yes Does the pt have substance abuse?: Yes - Immunizations Immunizations are current?: Yes - POLST Patient has POLST: No PD ED PE NORMAL - Vitals Vital signs reviewed: Yes - General General: Alert and oriented X 3, No acute distress, Well developed/nourished - HEENT HEENT: PERRL, Moist mucous membranes - Neck Neck: Supple, no meningeal sign - Cardiac Cardiac: RRR - Respiratory Respiratory: No respiratory distress, Clear bilaterally - Abdomen Abdomen: Normal bowel sounds, Soft, Non distended, Other (Tender to palpation epigastric and left upper quadrant without peritoneal signs) - Back Back: No CVA TTP, No spinal TTP - Derm Derm: Warm and dry - Extremities Extremities: No edema - Neuro Neuro: Alert and oriented X 3 - Psych Psych: Normal mood, Normal affect Results - Vitals Vitals: Vital Signs - 24 hr 12/22/21 12/22/21 12/22/21 12:36 14:40 16:00 Temperature 36.8 C 36.6 C Heart Rate 132 H 65 62 Respiratory 32 H 18 12 Rate Blood Pressure 114/80 157/87 H 167/86 H O2 Saturation 100 98 99 12/22/21 17:58 Temperature 36.7 C Heart Rate 89 Respiratory 16 Rate Blood Pressure 176/96 H O2 Saturation 95 Oxygen O2 Source Room air - Labs Labs: Laboratory Tests 12/22/21 12/22/21 12/22/21 12:50 12:50 15:17 WBC 10.2 RBC 4.88 Hgb 15.7 Hct 45.5 MCV 93.2 MCH 32.2 H MCHC 34.5 RDW 12.9 Plt Count 198 MPV 8.7 Neut # (Auto) 7.6 H Lymph # (Auto) 1.9 [place] # (Auto) 0.5 Eos # (Auto) 0.1 Baso # (Auto) 0.1 Absolute Nucleated RBC 0.00 Nucleated RBC % 0.0 Sodium 141 Potassium 4.8 Chloride 106 Carbon Dioxide 18 L Anion Gap 17.0 H BUN 18 Creatinine 0.6 Estimated GFR (MDRD) 102 Glucose 119 H Calcium 10.4 H Total Bilirubin 1.1 H AST 28 ALT 15 Alkaline Phosphatase 88 Total Protein 8.2 Albumin 4.9 Globulin 3.3 Albumin/Globulin Ratio 1.5 Lipase 24 Urine Color YELLOW Urine Clarity CLEAR Urine pH 7.5 Ur Specific [place] 1.010 Urine Protein TRACE Urine Glucose (UA) NEGATIVE Urine Ketones 40 H Urine Occult Blood NEGATIVE Urine Nitrite NEGATIVE Urine Bilirubin NEGATIVE Urine Urobilinogen 0.2 (NORMAL) Ur Leukocyte Esterase NEGATIVE Ur Microscopic Review NOT INDICATED Urine Culture Comments NOT INDICATED Urine Opiates Screen POSITIVE H Ur Oxycodone Screen NEGATIVE Urine Methadone Screen NEGATIVE Ur Propoxyphene Screen NEGATIVE Ur Barbiturates Screen NEGATIVE Ur Tricyclics Screen NEGATIVE Ur Phencyclidine Scrn NEGATIVE Ur Amphetamine Screen NEGATIVE U Methamphetamines Scrn NEGATIVE U Benzodiazepines Scrn NEGATIVE Urine Cocaine Screen NEGATIVE U Cannabinoids Screen POSITIVE H Ethyl Alcohol < 5.0 - Rads (name of study) CT abd/pelvis Radiology: Final report received, EMP read contemporaneously, See rad report PD MEDICAL DECISION MAKING - ED course Complexity details: reviewed results, re-evaluated patient, considered differential, d/w patient ED course: Patient is well-appearing, nontoxic. Afebrile. No acute findings on CT scan to explain her symptoms. Feels better after IV fluids, pain medications and nausea medications. Possible gastritis, possible viral illness. Tolerating p.o. without difficulty here. No evidence of acute pancreatitis. We will place on pain medication and nausea medications for home and have her follow-up with her doctor for further care. No evidence of peritonitis. Patient counseled regarding signs and symptoms for which I believe and urgent re-evaluation would be necessary. Patient with good understanding of and agreement to plan and is comfortable going home at this time This document was made in part using voice recognition software. While efforts are made to proofread this document, sound alike and grammatical errors may occur. IMPRESSION: 1. Questionable wall thickening involving proximal to mid descending colon concerning for low-grade colitis. No bowel obstruction. No free fluid of free air. Mild sigmoid diverticulosis without ev idence of acute diverticulitis. 2. Prior cholecystectomy. Stable extrahepatic biliary ductal dilatation is unchanged from prior studies. No gross choledocholithiasis. Departure - Departure Disposition: Home, Self Care Clinical Impression: Abdominal pain Qualifiers: Abdominal location: unspecified location Qualified Code(s): R10.9 - Unspecified abdominal pain Vomiting Qualifiers: Vomiting type: unspecified Nausea presence: with nausea Qualified Code(s): R11.2 - Nausea with vomiting, unspecified Condition: Good Instructions: ED Abdominal Pain Female Non-Specific Abdominal Pain Follow-Up: ROSA HONG MD [Primary Care Provider] - Within 1 week Prescriptions: Sucralfate [Carafate] 1 gm PO ACHS #60 tablet Esomeprazole Magnesium [Nexium] 40 mg PO DAILY #30 cap.sr Oxycodone HCl/Acetaminophen [Percocet 5-325 mg Tablet] 1 - 2 each PO Q6H PRN #14 tablet PRN Reason: pain Promethazine [Phenergan] 25 mg PO Q6H PRN #10 tablet PRN Reason: Nausea / Vomiting Ondansetron Odt [Zofran] 4 mg TL Q6H PRN #10 tablet PRN Reason: Nausea / Vomiting Comments: The cause of your symptoms is unclear today. You may have a mild colitis on CT scan, but this does not appear to require antibiotics at this time. We will try you on pain medication and nausea medication for home. Please follow-up with your doctor for further care. Return if you worsen. Your prescriptions were sent to [facility] in [place] I am prescribing a short course of narcotic pain medication for you. These are potentially dangerous and addictive medications that should be used carefully. These medications may constipate you. Take an [id number] stool softener (docusate) twice daily with plenty of water while taking these medications. If you go 24 hours without a bowel movement, take [id number] miralax, per package instructions. Do not drink or drive while taking these medications. If you received narcotic or sedating medications while in the emergency department, do not drive for 24 hours. Store this medication in a safe, secure place and out of reach of children. It is a violation of federal law to give or sell this medication to another person or to use in a manner other than prescribed. The ED will not refill narcotic prescriptions, including prescriptions lost or stolen. To dispose of unwanted medications: 1. [facility] at [address] in [place] has a medication drop box. They accept prescription medications (in pill form) Tuesday through Tuesday 9:00 a.m. to 5:00 p.m. 2. The [facility] [employer] accepts prescription medications (in pill form only) for disposal year round. Call for more information. 3. Contact the [facility] for the next [facility] sponsored prescription drug collection event. , [phone], or [phone]; Discharge Date/Time: 12/22/21 18:17
[2021-12-22 13:07] LABS: ALBUMIN 4.9 g/dL (3.2-5.5); ALBUMIN/GLOBULIN RATIO 1.5 (1.0-2.2); ALKALINE PHOSPHATASE 88 IU/L (42-121); ALT ALANINE AMINOTRANSFERASE 15 IU/L (10-60); AST ASPARTATE AMINOTRANSFERASE 28 IU/L (10-42); BILIRUBIN,TOTAL 1.1 mg/dL (0.2-1.0); BUN - BLOOD UREA NITROGEN 18 mg/dL (6-20); CALCIUM 10.4 mg/dL (8.5-10.3); CARBON DIOXIDE - CO2 18 mmol/L (21-32); CHLORIDE 106 mmol/L (101-111); CREATININE 0.6 mg/dL (0.4-1.0); ETOH - ETHANOL < 5.0 mg/dL; GFR - MDRD 102 (>89); GLUCOSE 119 mg/dL (70-100); LIPASE 24 U/L (22-51); POTASSIUM 4.8 mmol/L (3.5-5.0); SODIUM 141 mmol/L (135-145); TOTAL PROTEIN 8.2 g/dL (6.7-8.2)
[2021-12-22] MEDS ORDERED: PANTOPRAZOLE 40 MG VIAL IVP STA (13:08)
[2021-12-22] MEDS ORDERED: ONDANSETRON 4 MG/2 ML VIAL IVP STA ×2 (13:08→15:54)
[2021-12-22] MEDS ORDERED: HYDROmorphone 1 MG/ML CARPUJECT IVP STA ×2 (13:08→15:54)
[2021-12-22] MEDS ORDERED: SODIUM CHLORIDE 0.9% 1,000 ML IV STA ×2 (13:08→15:58)
[2021-12-22] MEDS ORDERED: IOVERSOL 320 100 ML VIAL IVP ONE ×2 (13:21→13:29)
--- NOTE | 2021-12-22 14:07 | CT Report ---
PROCEDURE: Abdomen/Pelvis W INDICATIONS: L sided abd pain CONTRAST: IV CONTRAST: Optiray 320 ml: 100 PO CONTRAST: *NO PO CONTRAST TECHNIQUE: After the administration of IV contrast, 5 mm thick sections acquired from the diaphragms to the symp hysis. 5 mm thick coronal and sagittal reformats were acquired. For radiation dose reduction, the f ollowing was used: automated exposure control, adjustment of mA and/or kV according to patient size. COMPARISON: CT of abdomen and pelvis dated 06/24/2021 and MRCP dated 06/30/2021. FINDINGS: Image quality: Excellent. ABDOMEN: Lung bases: Lung bases are clear. Heart size is normal. Solid organs: There is hepatomegaly, no discrete hepatic lesion. Spleen is normal in size and enhance ment. Gallbladder is surgically absent. There is no intrahepatic biliary ductal dilatation. Stable pr ominence of common bile duct measures up to 1.2 cm in diameter is seen not significantly changed from prior study. Pancreas enhances normally. No adrenal nodules. Kidneys demonstrate normal size and e nhancement, without hydronephrosis. Peritoneum and bowel: There is no stomach or small bowel wall thickening. Questionable mild colonic w all thickening involving proximal to mid descending colon is seen. No free fluid or air. Sigmoid div erticulosis is seen, no evidence of acute diverticulitis. Nodes and vessels: No retroperitoneal or mesenteric adenopathy by size criteria. Aorta and inferior vena cava are normal in size. Miscellaneous: No ventral hernias. PELVIS: Genitourinary: Bladder wall thickness is normal. Miscellaneous: No inguinal hernias or adenopathy. Bones: No suspicious bony lesions. No vertebral body compression fractures. IMPRESSION: 1. Questionable wall thickening involving proximal to mid descending colon concerning for low-grade c olitis. No bowel obstruction. No free fluid of free air. Mild sigmoid diverticulosis without evidence of acute diverticulitis. 2. Prior cholecystectomy. Stable extrahepatic biliary ductal dilatation is unchanged from prior studi es. No gross choledocholithiasis. Reviewed by: Chay Owusu MD on 12/22/2021 2:06 PM PST Approved by: Chay Owusu MD on 12/22/2021 2:06 PM PST Station ID: [id number]
[2021-12-22 15:22] LABS: MUDS CUTOFF CONCENTRATIONS CUTOFF CONC BELOW:
[2021-12-22 15:28] LABS: BILIRUBIN,URINE NEGATIVE (NEGATIVE); GLUCOSE, URINE (UA) NEGATIVE (NEGATIVE); KETONES,URINE (UA) 40 mg/dL (NEGATIVE); LEUKOCYTE ESTERASE, URINE NEGATIVE (NEGATIVE); NITRITE,URINE NEGATIVE (NEGATIVE); OCCULT BLOOD,URINE NEGATIVE (NEGATIVE); PH,URINE 7.5 PH (5.0-7.5); PROTEIN,URINE TRACE mg/dL (NEGATIVE); UROBILINOGEN,URINE 0.2 (NORMAL) E.U./dL (NORMAL)
[2021-12-22 15:29] LABS: CLARITY,URINE CLEAR (CLEAR)
[2021-12-22 15:39] LABS: COCAINE SCREEN URINE NEGATIVE (NEGATIVE); METHAMPHETAMINES SCREEN, URINE NEGATIVE (NEGATIVE); OPIATE SCREEN, URINE POSITIVE (NEGATIVE); THC CANNABINOID SCREEN, URINE POSITIVE (NEGATIVE)
[2021-12-22 15:40] LABS: AMPHETAMINE SCREEN,URINE NEGATIVE (NEGATIVE); BARBITURATE SCREEN,UR NEGATIVE (NEGATIVE); BENZODIAZEPINES SCREEN, URINE NEGATIVE (NEGATIVE); METHADONE SCREEN, URINE NEGATIVE (NEGATIVE); OXYCODONE SCREEN, URINE NEGATIVE (NEGATIVE); PROPOXYPHENE SCREEN, URINE NEGATIVE (NEGATIVE); TRICYCLIC ANTIDEPRESSANT,URINE NEGATIVE (NEGATIVE)
[2021-12-22] MEDS ORDERED: DROPERIDOL 5 MG/2 ML VIAL IVP STA (16:41)
[2021-12-22] MEDS ORDERED: PROMETHAZINE INJ 12.5 MG in SODIUM CHLORIDE 0.9% 50 ML IV STA (16:41)
[2021-12-22 17:59] VITALS: BP 176/96
== END 2021-12-22 18:17 | disposition home or self-care (01) ==
LOC: ED 12:22
DX: R10.9 Unspecified abdominal pain (principal); R11.2 Nausea with vomiting, unspecified; Z87.891 Personal history of nicotine dependence
CPT/HCPCS: 36415; 74177; 80053; 80306; 80320; 81003; 83690; 85025; 96365; 96375; 96376; 99284; 99285; J1170; J7040; Q9967; 81001; 87086

== ENCOUNTER 2021-12-28 04:10 | Emergency (ER) | payer OTHER ==
[2021-12-28] MEDS ORDERED: SODIUM CHLORIDE 0.9% 1,000 ML IV STA (04:27)
[2021-12-28] MEDS ORDERED: ONDANSETRON 4 MG/2 ML VIAL IVP STA (04:27)
[2021-12-28] MEDS ORDERED: HYDROmorphone 1 MG/ML CARPUJECT IVP STA (04:27)
--- NOTE | 2021-12-28 04:35 | ED Physician Documentation ---
PD HPI ABD PAIN - Stated complaint Stated Complaint: STOAMCH PAIN - Chief complaint Chief Complaint: Abd Pain - Additional information Additional information: Patient presenting for evaluation of sharp epigastric pain starting earlier this evening. Patient was seen in the emergency department on December 22 and given pain medication and nausea medication. She states that the medications have not been helping. She is unsure of what could have triggered her pain to get worse tonight. She does have a history of pancreatitis. She reports her last drink was over a year ago. She reports bilious emesis, no hematemesis, no melena or hematochezia. No chest pain, fever, difficulty breathing, dysuria. She states this pain feels similar to other episodes of pancreatitis that she has experienced. Patient does have a history of cannabis use and says she has recently cut down but did last use yesterday morning. Review of Systems Constitutional: denies: Fever Cardiac: denies: Chest pain / pressure Respiratory: denies: Dyspnea, Cough GI: reports: Abdominal Pain, Nausea, Vomiting. denies: Constipation, Hematemesis, Bloody / black stool : denies: Dysuria Skin: denies: Rash Neurologic: denies: Headache PD PAST MEDICAL HISTORY - Past Medical History Past Medical History: Yes Cardiovascular: None Respiratory: None Neuro: None Endocrine/Autoimmune: None GI: GERD, Pancreatitis, Hepatitis, Cirrhosis, Other STORAGE CONSULTANT: None : Kidney stones HEENT: None Psych: Bipolar disorder, Depression, Anxiety Musculoskeletal: None Derm: None - Past Surgical History Past Surgical History: Yes General: 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 /STORAGE CONSULTANT: Hysterectomy, section - Present Medications Home Medications: Ambulatory Orders Medication Instructions Recorded Confirmed Estrogens, Conjugated Cream 30 gm VG MOTU 12/07/17 12/28/21 [Premarin Cream] Famotidine [Pepcid] 20 mg PO BID PRN 06/30/21 12/28/21 HYDROcod/ACETAM 5/325 [[place] 5/325] 1 tab PO Q6H PRN 06/30/21 12/28/21 Pnv No.95/Ferrous Fum/Folic AC 1 each PO DAILY #30 tablet 07/02/21 12/28/21 [ Tablet] Thiamine [Vitamin B-1] 100 mg PO DAILY #30 tablet 07/02/21 12/28/21 Esomeprazole Magnesium [Nexium] 40 mg PO DAILY #30 cap.sr 12/22/21 12/28/21 Ondansetron Odt [Zofran] 4 mg TL Q6H PRN #10 tablet 12/22/21 12/28/21 Oxycodone HCl/Acetaminophen 1 - 2 each PO Q6H PRN #14 tablet 12/22/21 12/28/21 [Percocet 5-325 mg Tablet] Promethazine [Phenergan] 25 mg PO Q6H PRN #10 tablet 12/22/21 Sucralfate [Carafate] 1 gm PO ACHS #60 tablet 12/22/21 12/28/21 Potassium Chloride [Klor-Con] 20 meq PO BID 2 Days #4 packet 12/28/21 Promethazine [Phenergan] 25 mg PO Q6H PRN #10 tab 12/28/21 - Allergies Allergies/Adverse Reactions: Allergies Allergy/AdvReac Type Severity Reaction Status Date / Time Sulfa (Sulfonamide Allergy Intermediate Rash Verified 12/28/21 04:23 Antibiotics) - Social History Does the pt smoke?: No Smoking Status: Never smoker Does the pt drink ETOH?: Yes Does the pt have substance abuse?: Yes - Immunizations Immunizations are current?: Yes - POLST Patient has POLST: No PD ED PE NORMAL - General General: Alert and oriented X 3, Well developed/nourished - HEENT HEENT: Atraumatic, Other (Dry oral mucosa) - Cardiac Cardiac: RRR, No gallop - Respiratory Respiratory: No respiratory distress, Clear bilaterally - Abdomen Abdomen: Soft, Other (Epigastric tenderness with guarding, no rebound, no peritoneal signs) - Back Back: No CVA TTP - Derm Derm: Normal color - Extremities Extremities: No edema - Neuro Neuro: No motor deficit, Normal speech - Psych Psych: Normal mood, Normal affect Results - Vitals Vitals: Vital Signs - 24 hr 12/28/21 12/28/21 12/28/21 04:15 04:43 05:08 Temperature 36.9 C Heart Rate 73 54 L 51 L Respiratory 24 16 15 Rate Blood Pressure 155/100 H 100/88 H 145/93 H O2 Saturation 100 99 99 12/28/21 12/28/21 05:37 07:07 Temperature Heart Rate 65 79 Respiratory 15 15 Rate Blood Pressure 153/97 H 151/88 H O2 Saturation 100 99 Oxygen O2 Source Room air - EKG (time done) 0430 Rate: Rate (enter#) (57) Rhythm: NSR [place]: Normal Ischemia: No: ST elevation c/w ischemia Computer interpretation: Disagree with computer (computer read as afib) - Labs Labs: Laboratory Tests 12/28/21 12/28/21 12/28/21 04:26 04:26 04:26 WBC 7.0 RBC 4.37 Hgb 14.3 Hct 40.5 MCV 92.7 MCH 32.7 H MCHC 35.3 RDW 12.9 Plt Count 160 MPV 9.5 Neut # (Auto) 5.7 Lymph # (Auto) 0.9 L [place] # (Auto) 0.3 Eos # (Auto) 0.0 Baso # (Auto) 0.0 Absolute Nucleated RBC 0.00 Nucleated RBC % 0.0 Sodium 137 Potassium 3.2 L Chloride 100 L Carbon Dioxide 21 Anion Gap 16.0 H BUN 11 Creatinine 0.6 Estimated GFR (MDRD) 102 Glucose 142 H Calcium 9.9 Total Bilirubin 1.2 H AST 26 ALT 19 Alkaline Phosphatase 76 Troponin I High Sens 3.8 Total Protein 8.3 H Albumin 5.0 Globulin 3.3 Albumin/Globulin Ratio 1.5 Lipase 23 Ethyl Alcohol 12/28/21 04:26 WBC RBC Hgb Hct MCV MCH MCHC RDW Plt Count MPV Neut # (Auto) Lymph # (Auto) [place] # (Auto) Eos # (Auto) Baso # (Auto) Absolute Nucleated RBC Nucleated RBC % Sodium Potassium Chloride Carbon Dioxide Anion Gap BUN Creatinine Estimated GFR (MDRD) Glucose Calcium Total Bilirubin AST ALT Alkaline Phosphatase Troponin I High Sens Total Protein Albumin Globulin Albumin/Globulin Ratio Lipase Ethyl Alcohol < 5.0 PD MEDICAL DECISION MAKING - ED course ED course: Patient presenting for evaluation of upper abdominal pain with nausea and vomiting. Although she has upper abdominal tenderness, her Exam does not suggest an acute abdomen.Labs reviewed with mild hypokalemia. Patient was hydrated. She was given pain medications and antiemetics. Her CT scan was unrevealing. She has had similar presentations in the past which have not required admission and has been able to manage her symptoms At discharge. She has recently been given 2 prescriptions for narcotic medications (1 from oral surgeon, one from recent ER visit). I will give her additional antiemetic medications And have instructed her that she should consider refraining from cannabis use and also have close follow-up with her primary care doctor.EKG is without acute ischemic changes and troponin is essentially negative. Departure - Departure Disposition: 01 Home, Self Care Clinical Impression: Cannabis abuse, episodic use, Hypokalemia Abdominal pain Qualifiers: Abdominal location: epigastric Qualified Code(s): R10.13 - Epigastric pain Nausea & vomiting Qualifiers: Vomiting type: unspecified Qualified Code(s): R11.2 - Nausea with vomiting, unspecified Condition: Stable Instructions: ED Abdominal Pain Female Non-Specific Abdominal Pain, ED Diet Vomiting Diarrhea, ED Potassium Deficiency Prescriptions: Potassium Chloride [Klor-Con] 20 meq PO BID 2 Days #4 packet Promethazine [Phenergan] 25 mg PO Q6H PRN #10 tab PRN Reason: Nausea / Vomiting Comments: The exact cause of your abdominal pain and vomiting is unclear but does not appear to be life-threatening. Your potassium was slightly low and a potassium replacement was sent to the [facility] pharmacy in [place]. I also sent another prescription for nausea medication.Please eat only a bland diet until your symptoms improve.You should have close follow-up with your primary care doctor. Please also refrain from cannabis use as this may worsen your symptoms. Discharge Date/Time: 12/28/21 07:42
[2021-12-28] MEDS ORDERED: IOVERSOL 320 100 ML VIAL IVP ONE ×2 (04:55→05:37)
[2021-12-28 05:00] LABS: BASOPHILS % (AUTO) 0.1 %; EOSINOPHILS % (AUTO) 0.1 %; HCT - HEMATOCRIT 40.5 % (37.0-47.0); HGB - HEMOGLOBIN 14.3 g/dL (12.0-16.0); LYMPHOCYTES # (AUTO) 0.9 10^3/uL (1.5-3.5); LYMPHOCYTES % (AUTO) 12.5 %; MEAN CORPUSCULAR HEMOGLOBIN 32.7 pg (27.0-31.0); MEAN CORPUSCULAR HGB CONC 35.3 g/dL (32.0-36.0); MEAN CORPUSCULAR VOLUME 92.7 fL (81.0-99.0); MEAN PLATELET VOLUME 9.5 fL (7.9-10.8); MONOCYTES # (AUTO) 0.3 10^3/uL (0.0-1.0); MONOCYTES % (AUTO) 4.6 %; NEUTROPHILS # (AUTO) 5.7 10^3/uL (1.5-6.6); NEUTROPHILS % (AUTO) 82.4 %; PLT - PLATELET COUNT 160 10^3/uL (130-450); RED BLOOD COUNT 4.37 10^6/uL (4.20-5.40); RED CELL DISTRIBUTION WIDTH 12.9 % (12.0-15.0)
[2021-12-28 05:14] LABS: ALBUMIN/GLOBULIN RATIO 1.5 (1.0-2.2); BILIRUBIN,TOTAL 1.2 mg/dL (0.2-1.0); CALCIUM 9.9 mg/dL (8.5-10.3); CREATININE 0.6 mg/dL (0.4-1.0); POTASSIUM 3.2 mmol/L (3.5-5.0); TOTAL PROTEIN 8.3 g/dL (6.7-8.2)
[2021-12-28] MEDS ORDERED: PROMETHAZINE INJ 25 MG in SODIUM CHLORIDE 0.9% 50 ML IV STA (06:38)
[2021-12-28] MEDS ORDERED: PROMETHAZINE 25 MG/1 ML VIAL ONE (06:57)
[2021-12-28 07:09] VITALS: BP 151/88
--- NOTE | 2021-12-28 08:13 | CT Report ---
PROCEDURE: Abdomen/Pelvis W INDICATIONS: upper abd pain/history of pancreatitis CONTRAST: IV CONTRAST: Optiray 320 ml: 100 PO CONTRAST: *NO PO CONTRAST TECHNIQUE: After the administration of IV contrast, 5 mm thick sections acquired from the diaphragms to the symp hysis. 5 mm thick coronal and sagittal reformats were acquired. For radiation dose reduction, the f ollowing was used: automated exposure control, adjustment of mA and/or kV according to patient size. COMPARISON: CT of abdomen and pelvis dated 06/24/2021, 12/22/2021, and MRCP dated 06/30/2021. FINDINGS: Image quality: Excellent. ABDOMEN: Lung bases: Lung bases are clear. Heart size is normal. Solid organs: Liver and spleen are normal in size and enhancement. Gallbladder is surgically absent . Stable chronic common bile duct dilatation is again seen unchanged from prior study. Pancreas enhan bruce normally. No adrenal nodules. Kidneys demonstrate normal size and enhancement, without hydronep hrosis. Peritoneum and bowel: Bowel loops demonstrate normal wall thickness and caliber. No free fluid or a ir. Sigmoid diverticulosis is seen, no CT evidence of acute diverticulitis. No abscess collection. A ppendix is visualized and is within normal limits. Nodes and vessels: No retroperitoneal or mesenteric adenopathy by size criteria. Aorta and inferior vena cava are normal in size. Miscellaneous: No ventral hernias. PELVIS: Genitourinary: Bladder wall thickness is normal. Miscellaneous: No inguinal hernias or adenopathy. Bones: No suspicious bony lesions. No vertebral body compression fractures. IMPRESSION: 1. Normal-appearing pancreas. No no peripancreatic fat stranding or fluid collection. Stable chronic, bile duct dilatation unchanged from prior study. Prior cholecystectomy. 2. Sigmoid diverticulosis without CT evidence of acute diverticulitis. No bowel obstruction or abnorm al bowel wall thickening. Normal appendix. No free fluid or free air. No significant discrepancies from pulmonary report. Reviewed by: Chay Owusu MD on 12/28/2021 8:11 AM PDT Approved by: Chay Owusu MD on 12/28/2021 8:11 AM PDT Station ID: [id number]
== END 2021-12-28 07:42 | disposition home or self-care (01) ==
LOC: ED 04:10
DX: F12.10 Cannabis abuse, uncomplicated (principal); R10.13 Epigastric pain; R11.2 Nausea with vomiting, unspecified; E87.6 Hypokalemia
CPT/HCPCS: 36415; 74177; 80053; 80320; 83690; 84484; 85025; 93005; 96361; 96365; 96375; 99283; 99284; J1170; J7040; Q9967

== ENCOUNTER 2023-08-17 10:49 | Day surgery (SDC) | payer OTHER ==
[2023-08-17 11:29] LABS: BASOPHILS % (AUTO) 0.2 %; EOSINOPHILS # (AUTO) 0.1 10^3/uL (0.0-0.7); HCT - HEMATOCRIT 40.1 % (37.0-47.0); HGB - HEMOGLOBIN 13.6 g/dL (12.0-16.0); LYMPHOCYTES % (AUTO) 11.1 %; MEAN CORPUSCULAR HEMOGLOBIN 31.9 pg (27.0-31.0); MEAN CORPUSCULAR HGB CONC 33.9 g/dL (32.0-36.0); MEAN CORPUSCULAR VOLUME 93.9 fL (81.0-99.0); MEAN PLATELET VOLUME 8.7 fL (7.9-10.8); MONOCYTES # (AUTO) 0.7 10^3/uL (0.0-1.0); MONOCYTES % (AUTO) 7.6 %; NEUTROPHILS # (AUTO) 7.5 10^3/uL (1.5-6.6); NEUTROPHILS % (AUTO) 79.8 %; PLT - PLATELET COUNT 151 10^3/uL (130-450); RED BLOOD COUNT 4.27 10^6/uL (4.20-5.40); RED CELL DISTRIBUTION WIDTH 12.9 % (12.0-15.0); WHITE BLOOD COUNT 9.4 x10^3/uL (4.8-10.8)
[2023-08-17 11:44] LABS: ALBUMIN 4.8 g/dL (3.2-5.5); ALBUMIN/GLOBULIN RATIO 1.8 (1.0-2.2); ALKALINE PHOSPHATASE 78 IU/L (42-121); ALT ALANINE AMINOTRANSFERASE 9 IU/L (10-60); AST ASPARTATE AMINOTRANSFERASE 16 IU/L (10-42); BILIRUBIN,TOTAL 1.4 mg/dL (0.2-1.0); BUN - BLOOD UREA NITROGEN 9 mg/dL (6-20); CALCIUM 9.8 mg/dL (8.5-10.3); CARBON DIOXIDE - CO2 26 mmol/L (21-32); CHLORIDE 102 mmol/L (101-111); CREATININE 0.6 mg/dL (0.6-1.3); GFR - MDRD 101 (>89); GLUCOSE 127 mg/dL (74-104); POTASSIUM 3.3 mmol/L (3.5-4.5); SODIUM 138 mmol/L (135-145); TOTAL PROTEIN 7.5 g/dL (6.4-8.9)
[2023-08-17 11:56] LABS: LIPASE < 10 U/L (11-82)
[2023-08-17 12:17] LABS: BILIRUBIN,URINE NEGATIVE (NEGATIVE); GLUCOSE, URINE (UA) NEGATIVE (NEGATIVE); KETONES,URINE (UA) >=80 mg/dL (NEGATIVE); LEUKOCYTE ESTERASE, URINE NEGATIVE (NEGATIVE); NITRITE,URINE NEGATIVE (NEGATIVE); OCCULT BLOOD,URINE NEGATIVE (NEGATIVE); PROTEIN,URINE 30 mg/dL (NEGATIVE); UROBILINOGEN,URINE 0.2 (NORMAL) E.U./dL (NORMAL)
[2023-08-17 12:23] LABS: CLARITY,URINE HAZY (CLEAR)
[2023-08-17 12:32] LABS: BACTERIA,URINE Few /HPF (None Seen); MUCUS,URINE Marked Strands; RBC,URINE None Seen /HPF (0-5); SQUAMOUS EPITHELIAL CELL,UR FEW Squamous (<= Few); WBC,URINE 0-3 /HPF (0-5)
[2023-08-17] MEDS ORDERED: SODIUM CHLORIDE 0.9% 1,000 ML IV STA (12:38)
[2023-08-17] MEDS ORDERED: KETOROLAC 30 MG/ML VIAL IVP STA (12:38)
[2023-08-17] MEDS ORDERED: POTASSIUM CHLOR 10 MEQ/100 ML 10 MEQ/100 ML BAG IV ONE (13:23)
--- NOTE | 2023-08-17 13:23 | ED Physician Documentation ---
PD HPI ABD PAIN - Stated complaint Stated Complaint: RT SIDE PX/NAUSEA - Chief complaint Chief Complaint: Abd Pain - History obtained from History obtained from: Patient, Family () - History of Present Illness Timing - onset: Yesterday Timing - duration: Days (2) Timing - details: Gradual onset, Still present Quality: Sharp, Pain Location: RLQ Improved by: Laying still Worsened by: Moving, Position, Palpation Associated symptoms: Nausea, Constipation Similar symptoms before: Has not had sx before Recently seen: Not recently seen - Additional information Additional information: pain started yesterday morning in RLQ and has persisted and worsened. Mulino like constipation but did not go away ever. Did not eat yesterday Review of Systems Constitutional: denies: Fever Ears: denies: Ear pain Nose: denies: Congestion Throat: denies: Sore throat Cardiac: denies: Chest pain / pressure, Palpitations Respiratory: denies: Dyspnea, Cough GI: reports: Abdominal Pain, Nausea, Constipation. 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 : Kidney stones HEENT: None Psych: Bipolar disorder, Depression, Anxiety Musculoskeletal: None Derm: None - Past Surgical History Past Surgical History: Yes General: 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 /SECTION LABORER: Hysterectomy, section - Present Medications Home Medications: Ambulatory Orders Medication Instructions Recorded Confirmed Estrogens, Conjugated Cream 30 gm VG MOTU 12/07/17 12/28/21 [Premarin Cream] Famotidine [Pepcid] 20 mg PO BID PRN 06/30/21 12/28/21 HYDROcod/ACETAM 5/325 [[place] 5/325] 1 tab PO Q6H PRN 06/30/21 12/28/21 Pnv No.95/Ferrous Fum/Folic AC 1 each PO DAILY #30 tablet 07/02/21 12/28/21 [ Tablet] Thiamine [Vitamin B-1] 100 mg PO DAILY #30 tablet 07/02/21 12/28/21 Esomeprazole Magnesium [Nexium] 40 mg PO DAILY #30 cap.sr 12/22/21 12/28/21 Ondansetron Odt [Zofran] 4 mg TL Q6H PRN #10 tablet 12/22/21 12/28/21 Oxycodone HCl/Acetaminophen 1 - 2 each PO Q6H PRN #14 tablet 12/22/21 12/28/21 [Percocet 5-325 mg Tablet] Promethazine [Phenergan] 25 mg PO Q6H PRN #10 tablet 12/22/21 Sucralfate [Carafate] 1 gm PO ACHS #60 tablet 12/22/21 12/28/21 Potassium Chloride [Klor-Con] 20 meq PO BID 2 Days #4 packet 12/28/21 - Allergies Allergies/Adverse Reactions: Allergies Allergy/AdvReac Type Severity Reaction Status Date / Time Sulfa (Sulfonamide Allergy Intermediate Rash Verified 08/17/23 11:03 Antibiotics) - Social History Does the pt smoke?: No Smoking Status: Never smoker Does the pt drink ETOH?: Yes Does the pt have substance abuse?: Yes - Immunizations Immunizations are current?: Yes - POLST Patient has POLST: No PD ED PE NORMAL - Vitals Vital signs reviewed: Yes (hypertensive mild) - General General: Alert and oriented X 3, Well developed/nourished, Other (appears to be in pain clutching the right lower quadrant with toter tone and flattened affect. ) - HEENT HEENT: Atraumatic, PERRL, EOMI - Neck Neck: Supple, no meningeal sign, No bony TTP - Cardiac Cardiac: RRR, No murmur - Respiratory Respiratory: No respiratory distress, Clear bilaterally - Abdomen Abdomen: Normal bowel sounds, Soft, Other (RLQ tenderness over Mcburnies is specific and repeatable. Pain referred to RLQ with palp of LLQ no RUQ pain no LUQ pain. ) - Back Back: No CVA TTP, No spinal TTP - Derm Derm: Normal color, Warm and dry, No rash - Extremities Extremities: No deformity, No edema - Neuro Neuro: Alert and oriented X 3, sharepoint web developer 2-12 intact, No motor deficit, No sensory deficit, Normal speech Eye Opening: Spontaneous Motor: Obeys Commands Verbal: Oriented GCS Score: 15 - Psych Psych: Normal mood, Normal affect Results - Vitals Vitals: Vital Signs - 24 hr 08/17/23 08/17/23 08/17/23 10:59 13:00 13:12 Temperature 36.4 C L Heart Rate 70 53 L 58 L Respiratory 20 22 20 Rate Blood Pressure 130/85 H 148/79 H O2 Saturation 100 100 08/17/23 14:24 Temperature Heart Rate 60 Respiratory 20 Rate Blood Pressure 139/70 H O2 Saturation 99 Oxygen O2 Source Room air - Labs Labs: Laboratory Tests 08/17/23 08/17/23 08/17/23 11:19 11:23 11:23 WBC 9.4 RBC 4.27 Hgb 13.6 Hct 40.1 MCV 93.9 MCH 31.9 H MCHC 33.9 RDW 12.9 Plt Count 151 MPV 8.7 Neut # (Auto) 7.5 H Lymph # (Auto) 1.0 L [place] # (Auto) 0.7 Eos # (Auto) 0.1 Baso # (Auto) 0.0 Absolute Nucleated RBC 0.00 Nucleated RBC % 0.0 Sodium 138 Potassium 3.3 L Chloride 102 Carbon Dioxide 26 Anion Gap 10.0 BUN 9 Creatinine 0.6 Estimated GFR (MDRD) 101 Glucose 127 H Calcium 9.8 Total Bilirubin 1.4 H AST 16 ALT 9 L Alkaline Phosphatase 78 Total Protein 7.5 Albumin 4.8 Globulin 2.7 Albumin/Globulin Ratio 1.8 Lipase < 10 L Urine Color YELLOW Urine Clarity HAZY Urine pH 7.0 Ur Specific [place] 1.015 Urine Protein 30 H Urine Glucose (UA) NEGATIVE Urine Ketones >=80 H Urine Occult Blood NEGATIVE Urine Nitrite NEGATIVE Urine Bilirubin NEGATIVE Urine Urobilinogen 0.2 (NORMAL) Ur Leukocyte Esterase NEGATIVE Urine RBC None Seen Urine WBC 0-3 Ur Squamous Epith Cells FEW Squamous Urine Bacteria Few Urine Mucus Marked Strands Ur Microscopic Review INDICATED Urine Culture Comments NOT INDICATED PD Medical Decision Making - ED course Complexity details: reviewed old records, reviewed results, re-evaluated patient, considered differential, d/w patient, d/w family Reviewed Lab Results: We reviewed a complete blood count showing a white blood cell count of 9.4 with a normal hemoglobin hematocrit and platelets differential shows a predominance of neutrophils chemistries were remarkable for a potassium low at 3.3 kidney function normal liver function normal total bilirubin elevated at 1.4 urinalysis is remarkable for ketones in the urine no evidence of infection. The blood work did not help with specifics for diagnosis. urinalysis does help rule out urinary tract infection as a cause for right lower quadrant abdominal pain. ED course: 63-year-old female presents with right lower quadrant abdominal pain of 2 days duration. Beginning yesterday morning she has not eaten yesterday and on examination she appears to have appendicitis. This is confirmed with the use of the contrast CT scan of the abdomen and pelvis. The patient is administered Toradol for pain control which is inadequate and she eventually was administered Dilaudid and Zofran. The surgeon Dr. Norris is consulted in the case presented to the emergency department and examined the patient. Departure - Departure Disposition: ED Transfer to [facility] Clinical Impression: Appendicitis Qualifiers: Appendicitis type: acute appendicitis Acute appendicitis type: with localized peritonitis Appendicitis gangrene presence: without gangrene Appendicitis perforation presence: without perforation Appendicitis abscess presence: without abscess Qualified Code(s): K35.30 - Acute appendicitis with localized peritonitis, without perforation or gangrene Condition: Stable
[2023-08-17] MEDS ORDERED: HYDROmorphone 1 MG/ML CARPUJECT IVP STA (14:05)
[2023-08-17] MEDS ORDERED: cefTRIAXone 1 GM VIAL IVP STA (14:30)
[2023-08-17] MEDS ORDERED: metroNIDAZOLE 500 MG/100 ML 500 MG/100 ML BAG IV ONE (14:30)
[2023-08-17] MEDS ORDERED: SODIUM CHLORIDE FLUSH 0.9% 10 ML SYRINGE IVP PRN (14:33)
--- NOTE | 2023-08-17 14:34 | CT Report ---
PROCEDURE: ABDOMEN/PELVIS W INDICATIONS: RLQ pain seems like an appendix CONTRAST: 100ml omni 300 TECHNIQUE: After the administration of contrast, 5 mm thick sections acquired from the diaphragms to the symphys is. 5 mm thick coronal and sagittal reformats were acquired. For radiation dose reduction, the foll owing was used: automated exposure control, adjustment of mA and/or kV according to patient size. COMPARISON: 12/28/2021 FINDINGS: Image quality: Excellent. Lung bases and heart: Unremarkable. Liver: No solid mass. No intrahepatic biliary ductal dilatation. Gallbladder and biliary tree: Status post cholecystectomy. The extrahepatic bile duct is dilated josie uring 1.2 cm, unchanged compared to the prior study and likely due to prior cholecystectomy. Spleen: No splenomegaly. Pancreas: No pancreatic ductal dilation. Adrenals: No adrenal nodule. Kidneys and ureters: No hydronephrosis. No renal cystic lesion which requires follow up. No solid mas s. Bowel and peritoneum: The distal esophagus, stomach, and small bowel are normal. The large bowel has a normal caliber and appearance. The appendix is dilated measuring 1.3 cm with mild surrounding infla mmation consistent with acute appendicitis without evidence of perforation or abscess. Lymph nodes: No central or retroperitoneal adenopathy. Vessels: No infrarenal aortic aneurysm. PELVIS Reproductive organs: Unremarkable. Bladder: No abnormal wall thickening, accounting for underdistension. Pelvic lymph nodes: No pelvic adenopathy by size criteria. Bones: No aggressive osseous abnormality. Leftward curvature of the lumbar spine. Other: No significant ventral or inguinal hernia. IMPRESSION: Acute appendicitis without evidence of perforation or abscess. These findings were discussed with Dr. Calzada at 2:32 PM on 08/17/2023. Reviewed by: Edenilson Ventura on 08/17/2023 2:33 PM PDT Approved by: Edenilson Ventura on 08/17/2023 2:33 PM PDT Station ID: [id number]
--- NOTE | 2023-08-17 14:44 | HISTORY & PHYSICAL EXAMINATION ---
HPI - Admitted From Admitted from: ED - History Obtained From History obtained from: Patient - History of Present Illness Pain/Problem Location Description: RLQ pain Severity at the worst: reports: Moderate Pain Quality: reports: Sharp Context-Pain started w/: reports: Exertion, Movement Timing: reports: Gradual onset Duration: reports: Days: (2) Improved with: reports: Nothing Worsened by: reports: Movement Associated symptoms: reports: Nausea, Other (Anorexia) PMH/PSH - Past Medical History Cardiovascular: positive: None, Hypertension Respiratory: positive: None Neuro: positive: None Endocrine/Autoimmune: positive: None GI: positive: GERD, Pancreatitis, Hepatitis, Cirrhosis, Other 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 : positive: Kidney stones HEENT: positive: None Psych: positive: Bipolar disorder, Depression, Anxiety Musculoskeletal: positive: None Derm: positive: None MRSA Hx?: No - Past Surgical History General: positive: 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 /INFANTRY SENIOR SERGEANT: positive: Hysterectomy, section Social & Family Hx - Living Situation Living Arrangement: At home - Social History Does the pt smoke?: No Smoking Status: Never smoker Does the pt drink ETOH?: Yes Does the pt have substance abuse?: Yes - POLST Patient has POLST: No Meds/Allgy - Home Medications Home Medications: Ambulatory Orders Medication Instructions Recorded Confirmed Estrogens, Conjugated Cream 30 gm VG MOTU 12/07/17 12/28/21 [Premarin Cream] Famotidine [Pepcid] 20 mg PO BID PRN 06/30/21 12/28/21 HYDROcod/ACETAM 5/325 [[place] 5/325] 1 tab PO Q6H PRN 06/30/21 12/28/21 Pnv No.95/Ferrous Fum/Folic AC 1 each PO DAILY #30 tablet 07/02/21 12/28/21 [ Tablet] Thiamine [Vitamin B-1] 100 mg PO DAILY #30 tablet 07/02/21 12/28/21 Esomeprazole Magnesium [Nexium] 40 mg PO DAILY #30 cap.sr 12/22/21 12/28/21 Ondansetron Odt [Zofran] 4 mg TL Q6H PRN #10 tablet 12/22/21 12/28/21 Oxycodone HCl/Acetaminophen 1 - 2 each PO Q6H PRN #14 tablet 12/22/21 12/28/21 [Percocet 5-325 mg Tablet] Promethazine [Phenergan] 25 mg PO Q6H PRN #10 tablet 12/22/21 Sucralfate [Carafate] 1 gm PO ACHS #60 tablet 12/22/21 12/28/21 Potassium Chloride [Klor-Con] 20 meq PO BID 2 Days #4 packet 12/28/21 - Allergies Allergies/Adverse Reactions: Allergies Allergy/AdvReac Type Severity Reaction Status Date / Time Sulfa (Sulfonamide Allergy Intermediate Rash Verified 08/17/23 11:03 Antibiotics) Review of Systems - Constitutional Constitutional: reports: Poor appetite - Gastrointestinal Gastrointestinal: reports: Abdominal pain, Nausea, Vomiting, Poor appetite Exam - Vital Signs Vital Signs: Vital Signs x48h Temp Pulse Resp BP Pulse Ox 08/17/23 14:24 60 20 139/70 H 99 08/17/23 13:12 58 L 20 148/79 H 08/17/23 13:00 53 L 22 100 08/17/23 10:59 97.5 F L 70 20 130/85 H 100 - Physical Exam General Appearance: positive: Mild distress Eyes Bilateral: positive: Normal inspection, PERRL ENT: positive: ENT inspection nml, Pharynx nml Neck: positive: Nml inspection, Thyroid nml Respiratory: positive: Chest non-tender, No respiratory distress, Breath sounds nml Cardiovascular: positive: Regular rate & rhythm, No murmur Abdomen: positive: Other (Tender RLQ with referred rebound to the RLQ) Skin: positive: Color nml, No rash Extremities: positive: Non-tender, Full ROM, Nml appearance Neurologic/Psychiatric: positive: Oriented x3 Results - Lab Results Fish Bones: 08/17/23 11:23 08/17/23 11:23 Other Lab Results: Lab Results x24hrs 08/17/23 08/17/23 08/17/23 Range/Units 11: 11: 11:19 WBC 9.4 (4.8-10.8) x10^3/uL RBC 4.27 (4.20-5.40) 10^6/uL Hgb 13.6 (12.0-16.0) g/dL Hct 40.1 (37.0-47.0) % MCV 93.9 (81.0-99.0) fL MCH 31.9 H (27.0-31.0) pg MCHC 33.9 (32.0-36.0) g/dL RDW 12.9 (12.0-15.0) % Plt Count 151 (130-450) 10^3/uL MPV 8.7 (7.9-10.8) fL Neut # (Auto) 7.5 H (1.5-6.6) 10^3/uL Lymph # (Auto) 1.0 L (1.5-3.5) 10^3/uL [place] # (Auto) 0.7 (0.0-1.0) 10^3/uL Eos # (Auto) 0.1 (0.0-0.7) 10^3/uL Baso # (Auto) 0.0 (0.0-0.1) 10^3/uL Absolute Nucleated RBC 0.00 x10^3/uL Nucleated RBC % 0.0 /100WBC Sodium 138 (135-145) mmol/L Potassium 3.3 L (3.5-4.5) mmol/L Chloride 102 (101-111) mmol/L Carbon Dioxide 26 (21-32) mmol/L Anion Gap 10.0 (6-13) BUN 9 (6-20) mg/dL Creatinine 0.6 (0.6-1.3) mg/dL Estimated GFR (MDRD) 101 (>89) Glucose 127 H (74-104) mg/dL Calcium 9.8 (8.5-10.3) mg/dL Total Bilirubin 1.4 H (0.2-1.0) mg/dL AST 16 (10-42) IU/L ALT 9 L (10-60) IU/L Alkaline Phosphatase 78 (42-121) IU/L Total Protein 7.5 (6.4-8.9) g/dL Albumin 4.8 (3.2-5.5) g/dL Globulin 2.7 (2.1-4.2) g/dL Albumin/Globulin Ratio 1.8 (1.0-2.2) Lipase < 10 L (11-82) U/L Urine Color YELLOW Urine Clarity HAZY (CLEAR) Urine pH 7.0 (5.0-7.5) PH Ur Specific [place] 1.015 (1.002-1.030) Urine Protein 30 H (NEGATIVE) mg/dL Urine Glucose (UA) NEGATIVE (NEGATIVE) mg/dL Urine Ketones >=80 H (NEGATIVE) mg/dL Urine Occult Blood NEGATIVE (NEGATIVE) Urine Nitrite NEGATIVE (NEGATIVE) Urine Bilirubin NEGATIVE (NEGATIVE) Urine Urobilinogen 0.2 (NORMAL) (NORMAL) E.U./dL Ur Leukocyte Esterase NEGATIVE (NEGATIVE) Urine RBC None Seen (0-5) /HPF Urine WBC 0-3 (0-5) /HPF Ur Squamous Epith Cells FEW Squamous (<= Few) Urine Bacteria Few (None Seen) /HPF Urine Mucus Marked Strands Ur Microscopic Review INDICATED Urine Culture Comments NOT INDICATED - Diagnostic Imaging Results Diagnostic Imaging Results: positive: Discussed with radiologist Diagnostic Imaging Results Comments: CT Abd/Pelvis - Acute appendicitis without perforation Impression/Plan - Problem List Problem List: Acute appendicitis Plan: Laparoscopic appendectomy, possible open appendectomy under GETA Consent: Nemo has been counseled for the procedure, it's indications, risks, benefits and expected outcome as well as alternative therapies. We specifically discussed risks associated with anesthesia, bleeding, infection, injury to surrounding structures which may require additional surgery, and the possible need for conversion to an open procedure. Nemo understands, agrees, and consents to the proposed operative strategy and requests that we proceed with the procedure as outlined in our discussion. Kamlesh Fung MD General Surgery Service
[2023-08-17] MEDS ORDERED: BUPIVACAINE 0.25% PF 30 ML VIAL ONE (14:59)
[2023-08-17] MEDS ORDERED: LIDOCAINE 1%-EPI 1:100000 20 ML MDV ONE (14:59)
[2023-08-17] MEDS ORDERED: HEPARIN 5,000 UNIT/ML VIAL SUBQ ONE (15:00)
--- NOTE | 2023-08-17 15:36 | ANESTHESIA ---
Pre-Anesthesia VS, & Labs - Diagnosis acute appendicitis - Procedure lap appy Vital Signs: Temp Pulse Resp BP Pulse Ox O2 Flow Rate 36.4 C L 60 20 139/70 H 99 08/17/23 10:59 08/17/23 14:24 08/17/23 14:24 08/17/23 14:24 08/17/23 14:24 Height: 5 ft Weight (kg): 64.864 kg Body Mass Index: 27.9 BMI Classification: Overweight - NPO >8 hours - Is Patient ?: No - Lab Results Current Lab Results: Laboratory Tests 08/17/23 11:23: Sodium 138, Potassium 3.3 L, Chloride 102, Carbon Dioxide 26, Anion Gap 10.0, BUN 9, Creatinine 0.6, Estimated GFR (MDRD) 101, Glucose 127 H, Calcium 9.8, Total Bilirubin 1.4 H, AST 16, ALT 9 L, Alkaline Phosphatase 78, Total Protein 7.5, Albumin 4.8, Globulin 2.7, Albumin/Globulin Ratio 1.8, Lipase < 10 L 08/17/23 11:23: WBC 9.4, RBC 4.27, Hgb 13.6, Hct 40.1, MCV 93.9, MCH 31.9 H, MCHC 33.9, RDW 12.9, Plt Count 151, MPV 8.7, Neut # (Auto) 7.5 H, Lymph # (Auto) 1.0 L, [place] # (Auto) 0.7, Eos # (Auto) 0.1, Baso # (Auto) 0.0, Absolute Nucleated RBC 0.00, Nucleated RBC % 0.0 Fish Bones: 08/17/23 11:23 08/17/23 11:23 Home Medications and Allergies Active Medications Sodium Chloride (Sodium Chloride Flush 0.9% 10 Ml Syringe) 10 ml IVP 0100,0900,1700 JERONIMO Sodium Chloride (Sodium Chloride Flush 0.9% 10 Ml Syringe) 10 ml IVP PRN PRN PRN Reason: NEEDED PER PROVIDER ORDERS Estrogens, Conjugated Cream [Premarin Cream] 30 gm VG MOTU 12/07/17 Famotidine [Pepcid] 20 mg PO BID PRN 06/30/21 HYDROcod/ACETAM 5/325 [[place] 5/325] 1 tab PO Q6H PRN 06/30/21 Allergies/Adverse Reactions: Allergies Allergy/AdvReac Type Severity Reaction Status Date / Time Sulfa (Sulfonamide Allergy Intermediate Rash Verified 08/17/23 11:03 Antibiotics) Anes History & Medical History - Anesthetic History Anesthesia Complications: reports: No previous complications Family history of Anesthesia Complications: Denies Family history of Malignant Hyperthermia: Denies - Medical History Cardiovascular: reports: None Pulmonary: reports: None Gastrointestinal: reports: GERD, Pancreatitis, Hepatitis, Cirrhosis, Other Urinary: reports: Kidney stones Neuro: reports: None Musculoskeletal: reports: None Endocrine/Autoimmune: reports: None Blood Disorders: reports: None Skin: reports: None Smoking Status: Never smoker Psychosocial: reports: Alcohol (hx of heavy ETOH), Cannabis - Surgical History General: reports: 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 Gynecologic: reports: Hysterectomy, section Exam General: Alert, Oriented x3, Cooperative Dental: WNL Mouth Openin Fingerbreadth Neck Mobility: Normal Mallampati classification: I Thyromental Distance: 4-6 cm Respiratory: Lungs clear Cardiovascular: Regular rate Plan Anesthesia Type: General Consent for Procedure(s) Verified and Reviewed: Yes Code Status: Attempt Resuscitation ASA classification: 3-Severe systemic disease Is this case an emergency?: No
[2023-08-17] MEDS ORDERED: ONDANSETRON 4 MG/2 ML VIAL IVP PRN ×2 (15:37→19:27)
[2023-08-17] MEDS ORDERED: ATROPINE ABBOJECT 1 MG/10 ML SYRINGE IVP PRN (15:37)
[2023-08-17] MEDS ORDERED: HYDROmorphone 0.5 MG/0.5 ML SYRINGE IVP PRN (15:37)
[2023-08-17] MEDS ORDERED: NALOXONE 0.4 MG/ML VIAL IVP PRN (15:37)
[2023-08-17] MEDS ORDERED: MORPHINE 2 MG/ML CARPUJECT IVP PRN (15:37)
[2023-08-17] MEDS ORDERED: fentaNYL 100 MCG/2 ML VIAL IVP PRN (15:37)
[2023-08-17] MEDS ORDERED: ePHEDrine 50 MG/ML VIAL IVP PRN (15:37)
[2023-08-17] MEDS ORDERED: MIDAZOLAM 2 MG/2 ML VIAL ONE (15:51)
[2023-08-17] MEDS ORDERED: LIDOCAINE MPF 1%-EPI 1:200000 30 ML VIAL SUBQ ONE ×2 (15:53)
[2023-08-17] MEDS ORDERED: BUPIVACAINE 0.25% PF 30 ML VIAL SUBQ ONE ×2 (15:53)
[2023-08-17] MEDS ORDERED: LACTATED RINGERS 1,000 ML IV SCH ×2 (16:00→20:00)
[2023-08-17] MEDS ORDERED: SUGAMMADEX 200 MG/2 ML VIAL IVP ONE (16:56)
[2023-08-17] MEDS ORDERED: LACTATED RINGERS 500 ML IV ONE ×2 (17:04)
--- NOTE | 2023-08-17 17:04 | OPERATIVE REPORT ---
Operative Report - Other Other Information/Narrative: PROCEDURE DATE: 08/17/2023 PREOPERATIVE DIAGNOSIS: Nemo is a 63 year old female who has clinical, CT, and laboratory findings consistent with acute appendicitis. Nemo is being taken to the operating room for laparoscopic appendectomy, possible open appendectomy. POSTOPERATIVE DIAGNOSIS: Acute, non-ruptured appendicitis NAME OF PROCEDURE: Laparoscopic appendectomy SURGEON: Karthik Fung MD, FACS JAPANESE PROFESSOR: None ANESTHESIA: General endotracheal. ESTIMATED BLOOD LOSS: 20 mL. DRAINS: None SPECIMEN: Appendix COMPLICATIONS None FINDINGS: DESCRIPTION OF OPERATION: After consent for the procedure was obtained, the patient was brought to the operating room where in the supine position, general endotracheal anesthesia was administered. A surgical time-out was performed, indicating the patient and the procedure to be performed. The abdomen was prepped with alcohol-free chloroprep and draped in a sterile fashion. The subcutaneous tissue of each of the planned port sites was infiltrated with 1% Lidocaine with epinephrine in a 50/50 mix with 1/4 % Marcaine mixture. Pneumoperitoneum was achieved through a subumbilical incision using a Catarino cannula and an open technique. Under direct vision, a 5 mm muscle splitting, non-cutting port was placed in the right lower quadrant and an 12 mm muscle splitting, non-cutting port was placed in the left lower quadrant. Inspection revealed the above noted findings. The appendix was then identified after uncovering it from the surrounding omentum. It was grasped with a ratcheted grasper and retracted superiorly and anteriorly. I then was able to take down the mesoappendix with a harmonic scalpel and find healthy tissue at the base of the appendix. The base of the appendix was stapled and transected flush with the cecum using an Endo-MARICARMEN stapling device using gastrointestinal carla. The appendix was then brought out through the left lower quadrant port site incision using an EndoCatch device. Reinspection of the right lower quadrant revealed no evidence of bleeding or leakage from the previous dissection site. The right lower quadrant was irrigated with warm sterile saline. The irrigant was aspirated. A search was made for sponges, packs, instruments, and needles. None were found. The sponge, pack, instrument, and needle counts were relayed to me as being correct. The left lower quadrant port site was closed with a 2-0 Vicryl under direct vision using an Douglas-Vickie device. The pneumoperitoneum then was released. There was no evidence of bleeding from the laparoscopic port sleeve sites upon release of the pneumoperitoneum. The subumbilical incision was closed with 2-0 Vicryl for the linea alba. The skin of each of the port sites was closed with interrupted 4-0 Monocryl in a subcuticular fashion with Steri-Strips to reinforce the epidermis. Dressings were placed. The patient tolerated the procedure well and was brought to the recovery room with stable vital signs.
[2023-08-17] MEDS ORDERED: oxyCODONE 5 MG TABLET PO PRN (17:07)
[2023-08-17] MEDS ORDERED: iohexoL-300 100 ML VIAL IVP ONE (17:15)
[2023-08-17] MEDS ORDERED: fentaNYL 100 MCG/2 ML VIAL ONE (17:24)
[2023-08-17] MEDS ORDERED: ONDANSETRON 4 MG/2 ML VIAL ONE (17:30)
[2023-08-17] MEDS: ACETAMINOPHEN 325 MG TABLET PO SCH (18:24)
[2023-08-17] MEDS: KETOROLAC 30 MG/ML VIAL IVP SCH (18:26)
[2023-08-17] MEDS: SODIUM CHLORIDE FLUSH 0.9% 10 ML SYRINGE IVP SCH (18:26)
[2023-08-17] MEDS ORDERED: PROCHLORPERAZINE 5 MG TABLET PO PRN (20:01)
--- NOTE | 2023-08-17 20:08 | ANESTHESIA POST OP EVALUATION ---
Anesthesia Post Eval - Post Anesthesia Eval Vitals: Last Vital Signs Temp 36.0 C L 08/17/23 17:35 Pulse 59 L 08/17/23 17:35 Resp 13 08/17/23 17:35 BP 123/70 08/17/23 17:35 Pulse Ox 96 08/17/23 17:35 O2 Flow Rate CV Function Including HR & BP: Stable Pain Control: Satisfactory Nausea & Vomiting: Negative Mental Status: Baseline Respiratory Status: Airway Patent Hydration Status: Satisfactory Anesthesia Complications: None
[2023-08-17] MEDS: MORPHINE 2 MG/ML CARPUJECT IVP PRN ×2 (20:35→22:53)
[2023-08-18] MEDS: KETOROLAC 30 MG/ML VIAL IVP SCH ×2 (00:13→05:21)
[2023-08-18] MEDS: ACETAMINOPHEN 325 MG TABLET PO SCH ×2 (00:16→05:21)
[2023-08-18] MEDS: SODIUM CHLORIDE FLUSH 0.9% 10 ML SYRINGE IVP SCH ×2 (00:16→08:47)
[2023-08-18 05:50] LABS: BASOPHILS % (AUTO) 0.4 %; EOSINOPHILS % (AUTO) 0.6 %; HCT - HEMATOCRIT 30.2 % (37.0-47.0); MEAN CORPUSCULAR HEMOGLOBIN 31.6 pg (27.0-31.0); MEAN CORPUSCULAR HGB CONC 33.1 g/dL (32.0-36.0); MEAN CORPUSCULAR VOLUME 95.6 fL (81.0-99.0); MEAN PLATELET VOLUME 9.4 fL (7.9-10.8); MONOCYTES # (AUTO) 0.5 10^3/uL (0.0-1.0); NEUTROPHILS # (AUTO) 3.8 10^3/uL (1.5-6.6); NEUTROPHILS % (AUTO) 70.8 %; PLT - PLATELET COUNT 129 10^3/uL (130-450); RED BLOOD COUNT 3.16 10^6/uL (4.20-5.40); RED CELL DISTRIBUTION WIDTH 12.9 % (12.0-15.0); WHITE BLOOD COUNT 5.3 x10^3/uL (4.8-10.8)
[2023-08-18 06:04] LABS: ALBUMIN 3.5 g/dL (3.2-5.5); ALBUMIN/GLOBULIN RATIO 1.6 (1.0-2.2); CALCIUM 8.3 mg/dL (8.5-10.3); CREATININE 0.5 mg/dL (0.6-1.3); POTASSIUM 3.4 mmol/L (3.5-4.5); TOTAL PROTEIN 5.7 g/dL (6.4-8.9)
--- NOTE | 2023-08-18 07:59 | PROVIDER PROGRESS NOTE ---
Subjective - General Procedure Date: 08/17/23 Post Op Days: 1 Procedure Performed: Laparoscopic appendectomy - Review of Systems Wound/Incisions: positive: Healing well, Dressing dry and intact General: positive: No symptoms, Other (Tolerating a diet; Urinating; Ambulatory, Pain under control with Tylenol and NSAID) Objective - Patient Data Vital Signs: Vital Signs x48h Temp Pulse Resp BP Pulse Ox 08/18/23 04:30 98.2 F 60 16 124/72 96 Weight: Weight 08/16/23 08/17/23 08/18/23 23:59 23:59 23:59 Weight (kg) 69 kg Intake & Output: Intake and Output Totals x24h 08/16/23 08/17/23 08/18/23 23:59 23:59 23:59 Intake Total 1165 Output Total 400 Balance 1165 -400 - Lab Results Lab Results: 08/18/23 04:47 08/18/23 04:47 Other Lab Results: Lab Results x24hrs 08/18/23 08/18/23 08/17/23 Range/Units 04:47 04:47 11:23 WBC 5.3 (4.8-10.8) x10^3/uL RBC 3.16 L (4.20-5.40) 10^6/uL Hgb 10.0 L (12.0-16.0) g/dL Hct 30.2 L (37.0-47.0) % MCV 95.6 (81.0-99.0) fL MCH 31.6 H (27.0-31.0) pg MCHC 33.1 (32.0-36.0) g/dL RDW 12.9 (12.0-15.0) % Plt Count 129 L (130-450) 10^3/uL MPV 9.4 (7.9-10.8) fL Neut # (Auto) 3.8 (1.5-6.6) 10^3/uL Lymph # (Auto) 1.0 L (1.5-3.5) 10^3/uL Barnes # (Auto) 0.5 (0.0-1.0) 10^3/uL Eos # (Auto) 0.0 (0.0-0.7) 10^3/uL Baso # (Auto) 0.0 (0.0-0.1) 10^3/uL Absolute Nucleated RBC 0.00 x10^3/uL Nucleated RBC % 0.0 /100WBC Sodium 138 138 (135-145) mmol/L Potassium 3.4 L 3.3 L (3.5-4.5) mmol/L Chloride 107 102 (101-111) mmol/L Carbon Dioxide 25 26 (21-32) mmol/L Anion Gap 6.0 10.0 (6-13) BUN 6 9 (6-20) mg/dL Creatinine 0.5 L 0.6 (0.6-1.3) mg/dL Estimated GFR (MDRD) 125 101 (>89) Glucose 90 127 H (74-104) mg/dL Calcium 8.3 L 9.8 (8.5-10.3) mg/dL Total Bilirubin 1.0 1.4 H (0.2-1.0) mg/dL AST 13 16 (10-42) IU/L ALT 6 L 9 L (10-60) IU/L Alkaline Phosphatase 55 78 (42-121) IU/L Total Protein 5.7 L 7.5 (6.4-8.9) g/dL Albumin 3.5 4.8 (3.2-5.5) g/dL Globulin 2.2 2.7 (2.1-4.2) g/dL Albumin/Globulin Ratio 1.6 1.8 (1.0-2.2) Lipase < 10 L (11-82) U/L Urine Color Urine Clarity (CLEAR) Urine pH (5.0-7.5) PH Ur Specific Fries (1.002-1.030) Urine Protein (NEGATIVE) mg/dL Urine Glucose (UA) (NEGATIVE) mg/dL Urine Ketones (NEGATIVE) mg/dL Urine Occult Blood (NEGATIVE) Urine Nitrite (NEGATIVE) Urine Bilirubin (NEGATIVE) Urine Urobilinogen (NORMAL) E.U./dL Ur Leukocyte Esterase (NEGATIVE) Urine RBC (0-5) /HPF Urine WBC (0-5) /HPF Ur Squamous Epith Cells (<= Few) Urine Bacteria (None Seen) /HPF Urine Mucus Ur Microscopic Review Urine Culture Comments 08/17/23 08/17/23 Range/Units 11:23 11:19 WBC 9.4 (4.8-10.8) x10^3/uL RBC 4.27 (4.20-5.40) 10^6/uL Hgb 13.6 (12.0-16.0) g/dL Hct 40.1 (37.0-47.0) % MCV 93.9 (81.0-99.0) fL MCH 31.9 H (27.0-31.0) pg MCHC 33.9 (32.0-36.0) g/dL RDW 12.9 (12.0-15.0) % Plt Count 151 (130-450) 10^3/uL MPV 8.7 (7.9-10.8) fL Neut # (Auto) 7.5 H (1.5-6.6) 10^3/uL Lymph # (Auto) 1.0 L (1.5-3.5) 10^3/uL Barnes # (Auto) 0.7 (0.0-1.0) 10^3/uL Eos # (Auto) 0.1 (0.0-0.7) 10^3/uL Baso # (Auto) 0.0 (0.0-0.1) 10^3/uL Absolute Nucleated RBC 0.00 x10^3/uL Nucleated RBC % 0.0 /100WBC Sodium (135-145) mmol/L Potassium (3.5-4.5) mmol/L Chloride (101-111) mmol/L Carbon Dioxide (21-32) mmol/L Anion Gap (6-13) BUN (6-20) mg/dL Creatinine (0.6-1.3) mg/dL Estimated GFR (MDRD) (>89) Glucose (74-104) mg/dL Calcium (8.5-10.3) mg/dL Total Bilirubin (0.2-1.0) mg/dL AST (10-42) IU/L ALT (10-60) IU/L Alkaline Phosphatase (42-121) IU/L Total Protein (6.4-8.9) g/dL Albumin (3.2-5.5) g/dL Globulin (2.1-4.2) g/dL Albumin/Globulin Ratio (1.0-2.2) Lipase (11-82) U/L Urine Color YELLOW Urine Clarity HAZY (CLEAR) Urine pH 7.0 (5.0-7.5) PH Ur Specific Fries 1.015 (1.002-1.030) Urine Protein 30 H (NEGATIVE) mg/dL Urine Glucose (UA) NEGATIVE (NEGATIVE) mg/dL Urine Ketones >=80 H (NEGATIVE) mg/dL Urine Occult Blood NEGATIVE (NEGATIVE) Urine Nitrite NEGATIVE (NEGATIVE) Urine Bilirubin NEGATIVE (NEGATIVE) Urine Urobilinogen 0.2 (NORMAL) (NORMAL) E.U./dL Ur Leukocyte Esterase NEGATIVE (NEGATIVE) Urine RBC None Seen (0-5) /HPF Urine WBC 0-3 (0-5) /HPF Ur Squamous Epith Cells FEW Squamous (<= Few) Urine Bacteria Few (None Seen) /HPF Urine Mucus Marked Strands Ur Microscopic Review INDICATED Urine Culture Comments NOT INDICATED - Current Medications Current Medications: Current Medications Generic Name Dose Route Start Last Admin Trade Name Freq PRN Reason Stop Dose Admin Acetaminophen 650 mg 08/17/23 18:00 08/18/23 05:21 Acetaminophen 325 Mg Tablet PO 08/21/23 17:59 650 mg Q6HR JERONIMO Administration Lactated Ringer's 1,000 mls @ 75 mls/hr 08/17/23 20:00 08/17/23 20:34 Lr IV 75 mls/hr .[id number] JERONIMO Administration Ketorolac Tromethamine 30 mg 08/17/23 18:00 08/18/23 05:21 Ketorolac 30 Mg/Ml Vial IVP 08/18/23 18:01 30 mg Q6H JERONIMO Administration Morphine Sulfate 2 mg 08/17/23 20:00 08/17/23 22:53 Morphine 2 Mg/Ml Carpuject IVP 2 mg Q2HR PRN Administration Severe Pain (Level 7-10) Ondansetron HCl 4 mg 08/17/23 19:27 08/17/23 19:39 Ondansetron 4 Mg/2 Ml Vial IVP 4 mg Q6H PRN Administration Nausea / Vomiting Prochlorperazine Maleate 5 mg 08/17/23 20:01 08/17/23 20:35 Prochlorperazine 5 Mg Tablet PO 5 mg Q6HR PRN Administration Nausea / Vomiting Sodium Chloride 10 ml 08/17/23 17:00 08/18/23 00:16 Sodium Chloride Flush 0.9% 10 Ml Syringe IVP Not Given 0100,0900,1700 [facility] - Physical Exam Wound/Incisions: positive: Other (Umbilical dressing changed, other port site dressings dry) General Appearance: positive: No acute distress Neck: positive: Nml inspection Respiratory: positive: Chest non-tender, No respiratory distress, Breath sounds nml Cardiovascular: positive: Regular rate & rhythm Abdomen: positive: Non-tender, Nml bowel sounds, No distention Skin: positive: Color nml, Warm Extremities: positive: Non-tender, Full ROM Impression/Plan - Problem List Problem List: Assessment: 1) S/P laparoscopic appendectomy for acute appendicitis. Progressing well. 2) Liver cirrhosis 3) Anemia - no evidence of wound or intra-abdominal blood loss. Plan: 1) Discharge to home in the care of her 2) Diet as tolerated 3) May shower tomorrow 4) Tylenol/Ibuprofen for pain control 5) Follow-up surgery clinic in 7-10 days or sooner as needed
--- NOTE | 2023-08-18 08:53 | DISCHARGE SUMMARY ---
"Discharge Summary Admit Date: 08/17/23 Discharge Date: 08/18/23 Discharging Provider: Kenton Code Status: Attempt Resuscitation Condition at Discharge: Good Discharge Disposition: 01 Home, Self Care - DIAGNOSES Admission Diagnoses: Acute appendicitis Discharge Diagnoses with Status of Each Condition: Acute appendicitis - resolved with laparoscopic appendectomy - HPI History of Present Illness: - History of Present Illness Pain/Problem Location Description: RLQ pain Severity at the worst: reports: Moderate Pain Quality: reports: Sharp Context-Pain started w/: reports: Exertion, Movement Timing: reports: Gradual onset Duration: reports: Days: (2) Improved with: reports: Nothing Worsened by: reports: Movement Associated symptoms: reports: Nausea, Other (Anorexia) - CONSULTS | PROCEDURES Procedures: 08/17/23 - Laparoscopic appendectomy - HOSPITAL COURSE Hospital Course: Transient nausea related to Dilaudid injection, otherwise uneventful post-op course. Hct somewhat depressed after surgery (Hct = 30%) without evidence of intra- abdominal or wound bleeding. Liver cirrhosis identified during laparoscopy - ALLERGIES Allergies/Adverse Reactions: Allergies Allergy/AdvReac Type Severity Reaction Status Date / Time Sulfa (Sulfonamide Allergy Intermediate Rash Verified 08/17/23 11:03 Antibiotics) hydromorphone [From Dilaudid] AdvReac Nausea Verified 08/18/23 08:56 - MEDICATIONS Home Medications: Ambulatory Orders Medication Instructions Recorded Confirmed Estrogens, Conjugated Cream 30 gm VG MOTU 12/07/17 12/28/21 [Premarin Cream] Famotidine [Pepcid] 20 mg PO BID PRN 06/30/21 12/28/21 HYDROcod/ACETAM 5/325 [[place] 5/325] 1 tab PO Q6H PRN 06/30/21 12/28/21 Pnv No.95/Ferrous Fum/Folic AC 1 each PO DAILY #30 tablet 07/02/21 12/28/21 [ Tablet] Thiamine [Vitamin B-1] 100 mg PO DAILY #30 tablet 07/02/21 12/28/21 Esomeprazole Magnesium [Nexium] 40 mg PO DAILY #30 cap.sr 12/22/21 12/28/21 Ondansetron Odt [Zofran] 4 mg TL Q6H PRN #10 tablet 12/22/21 12/28/21 Oxycodone HCl/Acetaminophen 1 - 2 each PO Q6H PRN #14 tablet 12/22/21 12/28/21 [Percocet 5-325 mg Tablet] Promethazine [Phenergan] 25 mg PO Q6H PRN #10 tablet 12/22/21 Sucralfate [Carafate] 1 gm PO ACHS #60 tablet 12/22/21 12/28/21 Potassium Chloride [Klor-Con] 20 meq PO BID 2 Days #4 packet 12/28/21 - PHYSICAL EXAM AT DISCHARGE General Appearance: positive: No acute distress, Alert Eyes Bilateral: positive: Normal inspection Neck: positive: Nml inspection, Thyroid nml Respiratory: positive: Chest non-tender, No respiratory distress, Breath sounds nml Cardiovascular: positive: Regular rate & rhythm Peripheral Pulses: positive: 2+ Abdomen: positive: Nml bowel sounds, No distention, Other (Port sites clean and dry) Skin: positive: Color nml, Warm Extremities: positive: Non-tender, Full ROM - LABS Result Diagrams: 08/18/23 04:47 08/18/23 04:47 - DIAGNOSTIC IMAGING Diagnostic Imaging Results: See rad report - QUALITY (Female Hip Fx Only) Was patient sent home on osteoporosis medication?: No - FOLLOW UP Follow Up: Surgery clinic in 7-10 days - TIME SPENT Time Spent in Discharge (Minutes): 45"
[2023-08-18 08:54] VITALS: O2SAT 95
--- NOTE | 2023-08-18 09:02 | Discharge Plan ---
Discharge Plan Problem Reviewed?: Yes Disposition: Home, Self Care Condition: Good Prescriptions: Acetaminophen [Tylenol] 650 mg PO Q6HR 3 Days #60 tab Ibuprofen [Motrin] 400 mg PO TIDWM 3 Days #40 tablet Diet: Regular Activity Restrictions: Activity as Tolerated Shower Restrictions: No (Start tomorrow) Instruction Topics: Appendectomy Laparoscopic Dc Plan of Treatment: Diet: normal Activity: As tolerated. Be active but if it hurts to do, don't do it Medication: All usual meds plus Tylenol and Ibuprofen scheduled for next 3 days Shower: Start tomorrow. Remove brown band aids and wash gently. You may remove any loose white steri-strips. Cover with band aid after dry Follow-up General Surgery Clinic in 7-10 days. You will be called with a date and time. Contact the hospital emergency department for any after hours issues. No Smoking: If you smoke, Please STOP! Call for help.
[2023-08-18 09:34] VITALS: BP 145/76
== END 2023-08-18 09:25 | disposition home or self-care (01) ==
LOC: ED 10:49 → SDS 14:46 → MS2 17:29 → SDS 08-18 09:25
PROVIDERS: ATTEND Surgery
PROC: 0DTJ4ZZ Resection of Appendix, Percutaneous Endoscopic Approach (ICD-10-PCS; principal; 2023-08-17 15:30)
DX: K35.80 Unspecified acute appendicitis (principal); K74.60 Unspecified cirrhosis of liver; R11.0 Nausea; T40.2X5A Adverse effect of other opioids, initial encounter; Y92.239 Unspecified place in hospital as the place of occurrence of the external cause
CPT/HCPCS: 36415; 44970; 74177; 80053; 81001; 83690; 85025; 96361; 96372; 96374; 96375; 99285; A9270; J1170; J7120; Q9967; 81003; 87086

== ENCOUNTER 2024-03-15 20:10 | Emergency (ER) | payer OTHER ==
--- NOTE | 2024-03-15 20:38 | ED Physician Documentation ---
PD HPI NVD - Stated complaint Stated Complaint: N/V/D - Chief complaint Chief Complaint: Abd Pain - History obtained from History obtained from: Patient - Additonal information Additional information: Patient is a 64-year-old female presenting for evaluation of upper abdominal pain with associated nausea and vomiting for the past 4 days. Patient states she has been dry heaving today since she has nothing left in her stomach. Nothing makes the pain better or worse. 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 She does use cannabis regularly. Her significant other at the bedside does report having had vomiting and diarrhea earlier in the week that lasted 2 days. Patient does report having some loose stools today. She has had a prior appendectomy as well as cholecystectomy. Review of Systems Constitutional: denies: Fever Cardiac: denies: Chest pain / pressure Respiratory: denies: Dyspnea GI: reports: Abdominal Pain, Nausea, Vomiting : denies: Dysuria PD PAST MEDICAL HISTORY - Past Medical History Cardiovascular: None Respiratory: None Neuro: None Endocrine/Autoimmune: None GI: GERD, Pancreatitis, Hepatitis, Cirrhosis, Other CLINICAL REGISTERED NURSE: None : Kidney stones HEENT: None Psych: Bipolar disorder, Depression, Anxiety Musculoskeletal: None Derm: None - Past Surgical History Past Surgical History: Yes General: 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, Appendectomy /CLINICAL REGISTERED NURSE: Hysterectomy, section - Present Medications Home Medications: Ambulatory Orders Medication Instructions Recorded Confirmed Estrogens, Conjugated Cream 30 gm VG MOTU 12/07/17 12/28/21 [Premarin Cream] Famotidine [Pepcid] 20 mg PO BID PRN 06/30/21 12/28/21 HYDROcod/ACETAM 5/325 [[place] 5/325] 1 tab PO Q6H PRN 06/30/21 12/28/21 Pnv No.95/Ferrous Fum/Folic AC 1 each PO DAILY #30 tablet 07/02/21 12/28/21 [ Tablet] Thiamine [Vitamin B-1] 100 mg PO DAILY #30 tablet 07/02/21 12/28/21 Esomeprazole Magnesium [Nexium] 40 mg PO DAILY #30 cap.sr 12/22/21 12/28/21 Ondansetron Odt [Zofran Odt] 4 mg TL Q6H PRN #10 tablet 12/22/21 12/28/21 Oxycodone HCl/Acetaminophen 1 - 2 each PO Q6H PRN #14 tablet 12/22/21 12/28/21 [Percocet 5-325 mg Tablet] Promethazine [Phenergan] 25 mg PO Q6H PRN #10 tablet 12/22/21 Sucralfate [Carafate] 1 gm PO ACHS #60 tablet 12/22/21 12/28/21 Potassium Chloride [Klor-Con] 20 meq PO BID 2 Days #4 packet 12/28/21 Acetaminophen [Tylenol] 650 mg PO Q6HR 3 Days #60 tab 08/18/23 Ibuprofen [Motrin] 400 mg PO TIDWM 3 Days #40 tablet 08/18/23 Ondansetron Odt [Zofran] 4 mg TL Q6H PRN #10 tablet 03/15/24 - Allergies Allergies/Adverse Reactions: Allergies Allergy/AdvReac Type Severity Reaction Status Date / Time Sulfa (Sulfonamide Allergy Intermediate Rash Verified 08/17/23 11:03 Antibiotics) hydromorphone [From Dilaudid] AdvReac Nausea Verified 08/18/23 08:56 - Social History Does the pt smoke?: No Smoking Status: Never smoker Does the pt drink ETOH?: Yes Does the pt have substance abuse?: Yes - Immunizations Immunizations are current?: Yes - POLST Patient has POLST: No PD ED PE NORMAL - General General: Alert and oriented X 3, Well developed/nourished, Other (Dry heaving) - HEENT HEENT: Atraumatic, Moist mucous membranes, Pharynx benign - Neck Neck: Supple, no meningeal sign - Cardiac Cardiac: RRR, Strong equal pulses - Respiratory Respiratory: No respiratory distress, Clear bilaterally - Abdomen Abdomen: Normal bowel sounds, Soft, Non distended, Other (Mild epigastric te nderness) - Derm Derm: Warm and dry - Neuro Neuro: Normal speech Results - Vitals Vitals: Vital Signs - 24 hr 03/15/24 03/15/24 03/15/24 20:25 21:15 21:46 Temperature 36.0 C L Heart Rate 77 79 85 Respiratory 18 16 14 Rate Blood Pressure 124/93 H 127/69 127/69 O2 Saturation 99 96 98 Oxygen O2 Source Room air - Labs Labs: Laboratory Tests 03/15/24 03/15/24 20:45 20:45 WBC 8.9 RBC 4.22 Hgb 13.6 Hct 40.0 MCV 94.8 MCH 32.2 H MCHC 34.0 RDW 12.6 Plt Count 151 MPV 8.9 Neut # (Auto) 6.8 H Lymph # (Auto) 1.2 L [place] # (Auto) 0.6 Eos # (Auto) 0.2 Baso # (Auto) 0.0 Absolute Nucleated RBC 0.00 Nucleated RBC % 0.0 Sodium 138 Potassium 3.2 L Chloride 106 Carbon Dioxide 21 Anion Gap 11.0 BUN 18 Creatinine 0.6 Estimated GFR (MDRD) 101 Glucose 189 H Calcium 9.4 Total Bilirubin 0.7 AST 15 ALT 9 L Alkaline Phosphatase 77 Total Protein 6.8 Albumin 4.3 Globulin 2.5 Albumin/Globulin Ratio 1.7 Lipase 22 Ethyl Alcohol < 10.0 PD Medical Decision Making - ED course Complexity details: reviewed results, re-evaluated patient, d/w patient ED course: Patient is a 64-year-old female presenting for evaluation of upper abdominal pain with nausea and vomiting. Mild epigastric tenderness noted on exam. CBC, chemistry, urinalysis were reviewed. Patient initially was given IV droperidol which did help some. However continued to have pain and nausea so also given a dose of IV morphine and Zofran with resolution in her symptoms. CBC and chemistries unrevealing. Potassium 3.2. Patient tolerated p.o. replacement. Repeated abdominal exam was benign with no tenderness elicited with deep palpation. We discussed obtaining imaging but patient would like to hold off at this time as she no longer has any tenderness.She is counseled however on strict return precautions should pain recur. Departure - Departure Disposition: 01 Home, Self Care Clinical Impression: Upper abdominal pain, Nausea & vomiting, Hypokalemia Condition: Stable Instructions: ED Abdominal Pain Female Non-Specific Abdominal Pain, ED Diet Vomiting Diarrhea Prescriptions: Ondansetron Odt [Zofran] 4 mg TL Q6H PRN #10 tablet PRN Reason: Nausea / Vomiting Comments: I have sent a prescription for an antinausea medication to [facility] in [place]. Please start with a bland diet tomorrow. Return to the ER with any worsening symptoms. Forms: PCP List Discharge Date/Time: 03/15/24 22:41
[2024-03-15] MEDS: DROPERIDOL 5 MG/2 ML VIAL IVP STA (20:47)
[2024-03-15] MEDS: SODIUM CHLORIDE 0.9% 1,000 ML IV STA (20:47)
[2024-03-15 20:57] LABS: BASOPHILS % (AUTO) 0.2 %; EOSINOPHILS # (AUTO) 0.2 10^3/uL (0.0-0.7); EOSINOPHILS % (AUTO) 2.2 %; HGB - HEMOGLOBIN 13.6 g/dL (12.0-16.0); LYMPHOCYTES # (AUTO) 1.2 10^3/uL (1.5-3.5); LYMPHOCYTES % (AUTO) 13.9 %; MEAN CORPUSCULAR HEMOGLOBIN 32.2 pg (27.0-31.0); MEAN CORPUSCULAR VOLUME 94.8 fL (81.0-99.0); MEAN PLATELET VOLUME 8.9 fL (7.9-10.8); MONOCYTES # (AUTO) 0.6 10^3/uL (0.0-1.0); MONOCYTES % (AUTO) 7.1 %; NEUTROPHILS # (AUTO) 6.8 10^3/uL (1.5-6.6); NEUTROPHILS % (AUTO) 76.4 %; PLT - PLATELET COUNT 151 10^3/uL (130-450); RED BLOOD COUNT 4.22 10^6/uL (4.20-5.40); RED CELL DISTRIBUTION WIDTH 12.6 % (12.0-15.0); WHITE BLOOD COUNT 8.9 x10^3/uL (4.8-10.8)
[2024-03-15] MEDS: MORPHINE 2 MG/ML CARPUJECT IVP STA (21:09)
[2024-03-15 21:17] VITALS: BP 127/69
[2024-03-15 21:19] LABS: ALBUMIN 4.3 g/dL (3.2-5.5); ALBUMIN/GLOBULIN RATIO 1.7 (1.0-2.2); ALKALINE PHOSPHATASE 77 IU/L (42-121); ALT ALANINE AMINOTRANSFERASE 9 IU/L (10-60); AST ASPARTATE AMINOTRANSFERASE 15 IU/L (10-42); BILIRUBIN,TOTAL 0.7 mg/dL (0.2-1.0); BUN - BLOOD UREA NITROGEN 18 mg/dL (6-20); CALCIUM 9.4 mg/dL (8.5-10.3); CARBON DIOXIDE - CO2 21 mmol/L (21-32); CHLORIDE 106 mmol/L (101-111); CREATININE 0.6 mg/dL (0.6-1.3); ETOH - ETHANOL < 10.0 mg/dL; GFR - MDRD 101 (>89); GLUCOSE 189 mg/dL (74-104); LIPASE 22 U/L (11-82); POTASSIUM 3.2 mmol/L (3.5-4.5); SODIUM 138 mmol/L (135-145); TOTAL PROTEIN 6.8 g/dL (6.4-8.9)
[2024-03-15 21:54] VITALS: O2SAT 98
[2024-03-15] MEDS: POTASSIUM BICARB 25 MEQ TABLET PO ONE (22:18)
[2024-03-15] MEDS: ONDANSETRON 4 MG/2 ML VIAL IVP STA (22:18)
[2024-03-15] MEDS ORDERED: ONDANSETRON ODT 4 MG Prepack 2 TL PRN (22:31)
== END 2024-03-15 22:41 | disposition home or self-care (01) ==
LOC: ED 20:10
DX: E87.6 Hypokalemia (principal); R10.10 Upper abdominal pain, unspecified; R11.2 Nausea with vomiting, unspecified; Z79.899 Other long term (current) drug therapy
CPT/HCPCS: 36415; 80053; 82077; 83690; 85025; 96374; 96375; 99283